=== PATIENT | female | born 1965 | race Caucasian/White ===

== ENCOUNTER → 2017-03-19 | Outpatient (CLI) | payer OTHER ==
[~2017-03-19] MED LIST: ALBU90OI INH; ALBU90OI61 INH; AMLO10 PO; ASPI81CH PO; Aspirin EC81 MG PO; Atarax10 MG PO; BASAGLAR K100 UNIT/1 SC; BENZ100A PO; BUDE6HFA INH; BUSP10 PO; BUSP15; BUSP15 PO; Bactrim Ds Tab1 EACH PO; CEPH500 PO; CHOL10002 PO; Carbidopa-Levo1 EAC1 PO; DOCU100 PO; DULERA 200 MCG/13 GM INH; FAMO20 PO; FURO40 PO; HYDCHL12.5 PO; HYDCHL25 PO; HYDHCL25 PO; HYDPAM50 PO; Humalog100 UNIT/1 SC; IBUP600 PO; INSU100I6 SC; INSULANPEN SC; Keflex500 MG PO; LEVSOD100 PO; LEVSOD75 PO; LISI20 PO; Lasix20 MG PO; METCAR500 PO; METF500 PO; METF500C PO; METO10 PO; METO25 PO; METO50 PO; METO50ER PO; Macrodantin100 MG PO; Metformin HCl500 MG PO; Nicoderm Cq1 EAC1 TOP; Novolog Fl100 UNIT/1 INJ; Novolog Fl100 UNIT/1 SC; ONDA4 PO; Omeprazole20 M1; PANT20 PO; PRAV20 PO; PROM25 PO; Percocet 10-321 EACH PO; Percocet 5-3251 EACH PO; Prilosec Otc20 MG PO; Pyridium200 MG PO; ROBITUSSIN NIG237 ML PO; Roxicodone5 MG PO; SERT50 PO; STIOLTO RESPIMAT4 GM INH; Synthroid112 MCG PO; TRAZ150T57 PO; TRAZ50 PO; Zanaflex4 MG PO; Zofran Odt4 MG SL; Zofran Odt8 MG PO
== END | disposition home or self-care (01) ==
LOC: LAB 13:48
DX: S81.801A Unspecified open wound, right lower leg, initial encounter (principal)
CPT/HCPCS: 87070; 87075; 87205

== ENCOUNTER 2017-04-19 09:56 | Emergency (ER) | payer OTHER ==
[~2017-04-19] VITALS: Ht 167.6 cm; Wt 81.7 kg
[~2017-04-19 09:56] MED LIST changes: -AMLO10 PO; -Atarax10 MG PO; -BENZ100A PO; -BUSP15; -Bactrim Ds Tab1 EACH PO; -CEPH500 PO; -CHOL10002 PO; -DULERA 200 MCG/13 GM INH; -HYDCHL12.5 PO; -HYDCHL25 PO; -HYDHCL25 PO; -IBUP600 PO; -INSU100I6 SC; -Keflex500 MG PO; -LEVSOD75 PO; -LISI20 PO; -METCAR500 PO; -METF500 PO; -METF500C PO; -METO10 PO; -METO50ER PO; -Macrodantin100 MG PO; -Metformin HCl500 MG PO; -Nicoderm Cq1 EAC1 TOP; -Novolog Fl100 UNIT/1 INJ; -Omeprazole20 M1; -Percocet 10-321 EACH PO; -Percocet 5-3251 EACH PO; -Prilosec Otc20 MG PO; -Pyridium200 MG PO; -ROBITUSSIN NIG237 ML PO; -STIOLTO RESPIMAT4 GM INH; -TRAZ150T57 PO; -TRAZ50 PO; -Zanaflex4 MG PO; -Zofran Odt4 MG SL
[2017-04-19] MEDS ORDERED: IBUP600 PO (13:04)
[2017-07-28] MEDS ORDERED: LEVSOD100 (10:45)
[2017-07-28] MEDS ORDERED: BUSP15 (10:46)
[2017-07-28] MEDS ORDERED: METO50ER PO (10:46)
[2017-07-28] MEDS ORDERED: Prilosec Otc20 MG PO (10:46)
[2017-07-28] MEDS ORDERED: SERT50 PO (10:47)
[2017-07-28] MEDS ORDERED: HYDHCL25 PO (10:47)
[2017-07-28] MEDS ORDERED: BUSP15 PO (10:47)
[2017-07-28] MEDS ORDERED: PRAV20 PO (10:47)
[2017-07-28] MEDS ORDERED: Carbidopa-Levo1 EAC1 PO (10:48)
[2017-07-28] MEDS ORDERED: METCAR500 PO (10:50)
[2017-07-28] MEDS ORDERED: TRAZ150T57 PO (10:50)
[2017-07-28] MEDS ORDERED: HYDCHL12.5 PO (10:50)
[2017-07-28] MEDS ORDERED: METF500 PO (10:51)
[2017-08-01] MEDS ORDERED: BASAGLAR K100 UNIT/1 SC (11:06)
[2017-08-01] MEDS ORDERED: Novolog Fl100 UNIT/1 INJ (11:06)
[2017-08-01] MEDS ORDERED: Carbidopa-Levo1 EAC1 PO (15:04)
[2017-08-01] MEDS ORDERED: LEVSOD100 PO (15:08)
[2017-08-01] MEDS ORDERED: LISI20 PO (15:10)
[2018-01-29] MEDS ORDERED: Percocet 10-321 EACH PO (14:11)
[2018-01-29] MEDS ORDERED: Bactrim Ds Tab1 EACH PO (14:11)
[2018-01-29] MEDS ORDERED: Keflex500 MG PO (14:11)
== END 2017-04-19 13:25 | disposition home or self-care (01) ==
LOC: ER 09:56
DX: S39.012A Strain of muscle, fascia and tendon of lower back, initial encounter (principal); S20.212A Contusion of left front wall of thorax, initial encounter; F17.200 Nicotine dependence, unspecified, uncomplicated; Z89.511 Acquired absence of right leg below knee; W01.198A Fall on same level from slipping, tripping and stumbling with subsequent striking against other object, initial encounter; Z88.8 Allergy status to other drugs, medicaments and biological substances; Z88.5 Allergy status to narcotic agent; Z79.899 Other long term (current) drug therapy; Z79.4 Long term (current) use of insulin; Z79.82 Long term (current) use of aspirin
CPT/HCPCS: 71046; 72100; 96372; 99283; J1170; J1885

== ENCOUNTER 2017-04-24 13:12 | Emergency (ER) | payer OTHER ==
[~2017-04-24] VITALS: Ht 167.6 cm; Wt 81.7 kg
[~2017-04-24 13:12] MED LIST changes: +IBUP600 PO
[2017-04-24 14:44] LABS: BASOPHILS ABSOLUTE AUTO 0.02 K/mm3 (0.00-0.23); BASOPHILS PERCENT AUTO 0 % (0-2); EOSINOPHILS ABSOLUTE AUTO 0.06 K/mm3 (0.00-0.68); EOSINOPHILS PERCENT AUTO 0 % (0-6); Hematocrit 39.6 % (33.0-51.0); Hemoglobin 13.8 g/dL (11.5-16.0); IMMATURE GRAN ABSOLUTE AUTO 0.08 K/mm3 (0.00-0.10); IMMATURE GRAN PERCENT AUTO 1 % (0-1); LYMPHOCYTES ABSOLUTE AUTO 3.46 K/mm3 (0.84-5.20); LYMPHOCYTES PERCENT AUTO 24 % (21-46); MONOCYTES PERCENT AUTO 6 % (4-13); Mean Corpuscular HGB 29.7 pg (26.0-34.0); Mean Corpuscular HGB Conc 34.8 g/dL (31.5-36.5); Mean Corpuscular Volume 85 fL (80-100); Mean Platelet Volume 11.5 fL (9.1-12.4); NEUTROPHILS ABSOLUTE AUTO 9.78 K/mm3 (1.96-9.15); NEUTROPHILS PERCENT AUTO 68 % (41-73); Platelet Count 321 K/mm3 (150-400); RDW Coefficient Variation 13.2 % (11.7-14.2); RDW Standard Deviation 41.1 fL (35.1-46.3); Red Blood Cell Count 4.65 M/mm3 (3.80-5.20)
[2017-04-24 15:01] LABS: Albumin, Blood 3.8 g/dL (3.4-5.0); Albumin/Globulin Ratio 0.9 (0.8-1.8); Bilirubin, Total 0.5 mg/dL (0.1-1.0); Calcium, Blood 9.1 mg/dL (8.5-10.1); Creatinine, Blood 1.6 mg/dL (0.40-1.00); Globulin, Blood 4.3 g/dL (2.2-4.0); Potassium, Blood 4.7 mmol/L (3.5-5.5); Total Protein, Blood 8.1 g/dL (6.4-8.2)
[2017-04-24 19:20] LABS: Source, Urine Clean Catch
[2017-04-24 19:28] LABS: Bilirubin, Urine Neg (Neg); Blood, Urine 3+ (Neg); Glucose Qualitative, Urine 3+ (Neg); Ketones, Urine Neg (Neg); Leukocyte Esterase, Urine 3+ (Neg); Nitrite, Urine Neg (Neg); Protein, Urine 3+ (Neg); Specific Gravity, Urine 1.015 (1.003-1.022); Urobilinogen, Urine 1+ (Normal)
[2017-04-24 19:32] LABS: Appearance, Urine Clear (Clear); Color, Urine Yellow (P-Yellow)
[2017-04-24 19:33] LABS: Bacteria Many /hpf; Squamous Epithelial Cells Mod /hpf (Few)
[2017-07-28] MEDS ORDERED: LEVSOD100 (10:45)
[2017-07-28] MEDS ORDERED: BUSP15 (10:46)
[2017-07-28] MEDS ORDERED: METO50ER PO (10:46)
[2017-07-28] MEDS ORDERED: Prilosec Otc20 MG PO (10:46)
[2017-07-28] MEDS ORDERED: SERT50 PO (10:47)
[2017-07-28] MEDS ORDERED: BUSP15 PO (10:47)
[2017-07-28] MEDS ORDERED: HYDHCL25 PO (10:47)
[2017-07-28] MEDS ORDERED: PRAV20 PO (10:47)
[2017-07-28] MEDS ORDERED: Carbidopa-Levo1 EAC1 PO (10:48)
[2017-07-28] MEDS ORDERED: TRAZ150T57 PO (10:50)
[2017-07-28] MEDS ORDERED: HYDCHL12.5 PO (10:50)
[2017-07-28] MEDS ORDERED: METCAR500 PO (10:50)
[2017-07-28] MEDS ORDERED: METF500 PO (10:51)
[2017-08-01] MEDS ORDERED: BASAGLAR K100 UNIT/1 SC (11:06)
[2017-08-01] MEDS ORDERED: Novolog Fl100 UNIT/1 INJ (11:06)
[2017-08-01] MEDS ORDERED: Carbidopa-Levo1 EAC1 PO (15:04)
[2017-08-01] MEDS ORDERED: LEVSOD100 PO (15:08)
[2017-08-01] MEDS ORDERED: LISI20 PO (15:10)
[2018-01-29] MEDS ORDERED: Keflex500 MG PO (14:11)
[2018-01-29] MEDS ORDERED: Bactrim Ds Tab1 EACH PO (14:11)
[2018-01-29] MEDS ORDERED: Percocet 10-321 EACH PO (14:11)
== END 2017-04-24 22:44 | disposition home or self-care (01) ==
LOC: ER 13:12
PROVIDERS: Emergency Medicine
DX: R10.9 Unspecified abdominal pain (principal); S22.079A Unspecified fracture of T9-T10 vertebra, initial encounter for closed fracture; S22.089A Unspecified fracture of T11-T12 vertebra, initial encounter for closed fracture; E16.2 Hypoglycemia, unspecified; F17.200 Nicotine dependence, unspecified, uncomplicated; Z88.6 Allergy status to analgesic agent; Z88.5 Allergy status to narcotic agent; Z79.4 Long term (current) use of insulin; Z79.899 Other long term (current) drug therapy; Z79.82 Long term (current) use of aspirin; Z89.511 Acquired absence of right leg below knee; X58.XXXA Exposure to other specified factors, initial encounter
CPT/HCPCS: 36415; 74176; 80053; 81001; 83690; 85025; 87077; 87086; 87186; 96372; 96374; 99284; J1170

== ENCOUNTER 2017-04-30 06:10 | Emergency (ER) | payer OTHER ==
[~2017-04-30] VITALS: Ht 162.6 cm; Wt 79.4 kg
[2017-04-30 08:10] LABS: BASOPHILS ABSOLUTE AUTO 0.03 K/mm3 (0.00-0.23); BASOPHILS PERCENT AUTO 0 % (0-2); EOSINOPHILS ABSOLUTE AUTO 0.02 K/mm3 (0.00-0.68); EOSINOPHILS PERCENT AUTO 0 % (0-6); Hematocrit 37.8 % (33.0-51.0); Hemoglobin 12.9 g/dL (11.5-16.0); IMMATURE GRAN ABSOLUTE AUTO 0.04 K/mm3 (0.00-0.10); IMMATURE GRAN PERCENT AUTO 0 % (0-1); LYMPHOCYTES ABSOLUTE AUTO 1.85 K/mm3 (0.84-5.20); LYMPHOCYTES PERCENT AUTO 17 % (21-46); MONOCYTES ABSOLUTE AUTO 0.53 K/mm3 (0.16-1.47); MONOCYTES PERCENT AUTO 5 % (4-13); Mean Corpuscular HGB 29.6 pg (26.0-34.0); Mean Corpuscular HGB Conc 34.1 g/dL (31.5-36.5); Mean Corpuscular Volume 87 fL (80-100); Mean Platelet Volume 11.3 fL (9.1-12.4); NEUTROPHILS ABSOLUTE AUTO 8.29 K/mm3 (1.96-9.15); NEUTROPHILS PERCENT AUTO 77 % (41-73); Platelet Count 265 K/mm3 (150-400); RDW Coefficient Variation 13.3 % (11.7-14.2); RDW Standard Deviation 42.2 fL (35.1-46.3); Red Blood Cell Count 4.36 M/mm3 (3.80-5.20); White Blood Cell Count 10.76 K/mm3 (4.00-11.30)
[2017-04-30 08:33] LABS: Alanine Aminotransfer (ALT/SGP 14 U/L (12-78); Albumin, Blood 3.5 g/dL (3.4-5.0); Albumin/Globulin Ratio 0.9 (0.8-1.8); Alk Phos 124 U/L (50-136); Anion Gap 9 mmol/L (6-16); Aspartate Aminotrans (AST/SGOT 12 U/L (12-37); Bilirubin, Total 0.5 mg/dL (0.1-1.0); Blood Urea Nitrogen 25 mg/dL (8-24); Bun/Creatinine Ratio 20.7 (12.0-20.0); CO2, Blood 25 mmol/L (21-32); Calcium, Blood 8.8 mg/dL (8.5-10.1); Chloride, Blood 97 mmol/L (98-108); Creatinine, Blood 1.21 mg/dL (0.40-1.00); Globulin, Blood 4.1 g/dL (2.2-4.0); Glomerular Filtration Rate 49 (60-); Glucose, Blood 363 mg/dL (70-99); Potassium, Blood 4.9 mmol/L (3.5-5.5); Sodium, Blood 131 mmol/L (136-145); Total Protein, Blood 7.6 g/dL (6.4-8.2); Troponin I <0.015 ng/mL (0.000-0.040)
[2017-04-30 09:01] LABS: Source, Urine Clean Catch
[2017-04-30 09:06] LABS: Bilirubin, Urine Neg (Neg); Blood, Urine 2+ (Neg); Glucose Qualitative, Urine 4+ (Neg); Ketones, Urine 1+ (Neg); Leukocyte Esterase, Urine Neg (Neg); Nitrite, Urine Neg (Neg); Protein, Urine 3+ (Neg); Urobilinogen, Urine NORM (Normal)
[2017-04-30 09:17] LABS: Appearance, Urine Clear (Clear); Color, Urine Yellow (P-Yellow)
[2017-04-30 09:20] LABS: Bacteria Not Seen /hpf; Squamous Epithelial Cells Few /hpf (Few); White Blood Cells, Urine Not Seen /hpf (0-5)
[2017-04-30] MEDS ORDERED: Zofran Odt4 MG SL (09:47)
[2017-04-30] MEDS ORDERED: Percocet 5-3251 EACH PO (09:47)
[2017-07-28] MEDS ORDERED: LEVSOD100 (10:45)
[2017-07-28] MEDS ORDERED: BUSP15 (10:46)
[2017-07-28] MEDS ORDERED: METO50ER PO (10:46)
[2017-07-28] MEDS ORDERED: Prilosec Otc20 MG PO (10:46)
[2017-07-28] MEDS ORDERED: PRAV20 PO (10:47)
[2017-07-28] MEDS ORDERED: HYDHCL25 PO (10:47)
[2017-07-28] MEDS ORDERED: SERT50 PO (10:47)
[2017-07-28] MEDS ORDERED: BUSP15 PO (10:47)
[2017-07-28] MEDS ORDERED: Carbidopa-Levo1 EAC1 PO (10:48)
[2017-07-28] MEDS ORDERED: HYDCHL12.5 PO (10:50)
[2017-07-28] MEDS ORDERED: METCAR500 PO (10:50)
[2017-07-28] MEDS ORDERED: TRAZ150T57 PO (10:50)
[2017-07-28] MEDS ORDERED: METF500 PO (10:51)
[2017-08-01] MEDS ORDERED: BASAGLAR K100 UNIT/1 SC (11:06)
[2017-08-01] MEDS ORDERED: Novolog Fl100 UNIT/1 INJ (11:06)
[2017-08-01] MEDS ORDERED: Carbidopa-Levo1 EAC1 PO (15:04)
[2017-08-01] MEDS ORDERED: LEVSOD100 PO (15:08)
[2017-08-01] MEDS ORDERED: LISI20 PO (15:10)
[2018-01-29] MEDS ORDERED: Bactrim Ds Tab1 EACH PO (14:11)
[2018-01-29] MEDS ORDERED: Percocet 10-321 EACH PO (14:11)
[2018-01-29] MEDS ORDERED: Keflex500 MG PO (14:11)
== END 2017-04-30 10:00 | disposition home or self-care (01) ==
LOC: ER 06:10
PROVIDERS: Physician Assistant
DX: R11.2 Nausea with vomiting, unspecified (principal); E11.65 Type 2 diabetes mellitus with hyperglycemia; E11.22 Type 2 diabetes mellitus with diabetic chronic kidney disease; I12.9 Hypertensive chronic kidney disease with stage 1 through stage 4 chronic kidney disease, or unspecified chronic kidney disease; N18.9 Chronic kidney disease, unspecified; F17.200 Nicotine dependence, unspecified, uncomplicated; Z88.5 Allergy status to narcotic agent; Z79.4 Long term (current) use of insulin; Z79.899 Other long term (current) drug therapy; Z79.82 Long term (current) use of aspirin
CPT/HCPCS: 36415; 80053; 81001; 83690; 84484; 85025; 93005; 93010; 96361; 96374; 96375; 99284; J1170; J2765; J7030

== ENCOUNTER 2017-05-19 10:12 | Emergency (ER) | payer OTHER ==
[~2017-05-19] VITALS: Ht 167.6 cm; Wt 86.6 kg
[~2017-05-19 10:12] MED LIST changes: +Percocet 5-3251 EACH PO; +Zofran Odt4 MG SL
[2017-05-19] MEDS ORDERED: Percocet 10-321 EACH PO (10:37)
[2017-07-28] MEDS ORDERED: LEVSOD100 (10:45)
[2017-07-28] MEDS ORDERED: METO50ER PO (10:46)
[2017-07-28] MEDS ORDERED: Prilosec Otc20 MG PO (10:46)
[2017-07-28] MEDS ORDERED: BUSP15 (10:46)
[2017-07-28] MEDS ORDERED: PRAV20 PO (10:47)
[2017-07-28] MEDS ORDERED: HYDHCL25 PO (10:47)
[2017-07-28] MEDS ORDERED: BUSP15 PO (10:47)
[2017-07-28] MEDS ORDERED: SERT50 PO (10:47)
[2017-07-28] MEDS ORDERED: Carbidopa-Levo1 EAC1 PO (10:48)
[2017-07-28] MEDS ORDERED: HYDCHL12.5 PO (10:50)
[2017-07-28] MEDS ORDERED: METCAR500 PO (10:50)
[2017-07-28] MEDS ORDERED: TRAZ150T57 PO (10:50)
[2017-07-28] MEDS ORDERED: METF500 PO (10:51)
[2017-08-01] MEDS ORDERED: Novolog Fl100 UNIT/1 INJ (11:06)
[2017-08-01] MEDS ORDERED: BASAGLAR K100 UNIT/1 SC (11:06)
[2017-08-01] MEDS ORDERED: Carbidopa-Levo1 EAC1 PO (15:04)
[2017-08-01] MEDS ORDERED: LEVSOD100 PO (15:08)
[2017-08-01] MEDS ORDERED: LISI20 PO (15:10)
[2018-01-29] MEDS ORDERED: Bactrim Ds Tab1 EACH PO (14:11)
[2018-01-29] MEDS ORDERED: Keflex500 MG PO (14:11)
[2018-01-29] MEDS ORDERED: Percocet 10-321 EACH PO (14:11)
== END 2017-05-19 10:50 | disposition home or self-care (01) ==
LOC: ER 10:12
DX: S22.079D Unspecified fracture of T9-T10 vertebra, subsequent encounter for fracture with routine healing (principal); X58.XXXD Exposure to other specified factors, subsequent encounter; Z88.5 Allergy status to narcotic agent; Z88.8 Allergy status to other drugs, medicaments and biological substances; Z79.899 Other long term (current) drug therapy; Z79.4 Long term (current) use of insulin; Z79.82 Long term (current) use of aspirin; E11.22 Type 2 diabetes mellitus with diabetic chronic kidney disease; I12.9 Hypertensive chronic kidney disease with stage 1 through stage 4 chronic kidney disease, or unspecified chronic kidney disease; N18.9 Chronic kidney disease, unspecified; F17.200 Nicotine dependence, unspecified, uncomplicated
CPT/HCPCS: 99283

== ENCOUNTER 2017-05-26 11:02 | Emergency (ER) | payer OTHER ==
[~2017-05-26] VITALS: Ht 167.6 cm; Wt 81.7 kg
[~2017-05-26 11:02] MED LIST changes: +Percocet 10-321 EACH PO
[2017-05-26 12:25] LABS: Source, Urine Clean Catch
[2017-05-26 12:32] LABS: Bilirubin, Urine Neg (Neg); Blood, Urine 3+ (Neg); Glucose Qualitative, Urine 4+ (Neg); Ketones, Urine Neg (Neg); Leukocyte Esterase, Urine 1+ (Neg); Nitrite, Urine Neg (Neg); Protein, Urine 3+ (Neg); Urobilinogen, Urine NORM (Normal)
[2017-05-26 12:51] LABS: Appearance, Urine Clear (Clear); Color, Urine Yellow (P-Yellow)
[2017-05-26 12:53] LABS: Bacteria Few /hpf; Squamous Epithelial Cells Many /hpf (Few)
[2017-05-26 13:00] LABS: BASOPHILS ABSOLUTE AUTO 0.04 K/mm3 (0.00-0.23); BASOPHILS PERCENT AUTO 0 % (0-2); EOSINOPHILS ABSOLUTE AUTO 0.06 K/mm3 (0.00-0.68); EOSINOPHILS PERCENT AUTO 1 % (0-6); Hematocrit 40.9 % (33.0-51.0); Hemoglobin 13.6 g/dL (11.5-16.0); IMMATURE GRAN ABSOLUTE AUTO 0.06 K/mm3 (0.00-0.10); IMMATURE GRAN PERCENT AUTO 1 % (0-1); LYMPHOCYTES ABSOLUTE AUTO 2.34 K/mm3 (0.84-5.20); LYMPHOCYTES PERCENT AUTO 23 % (21-46); MONOCYTES ABSOLUTE AUTO 0.49 K/mm3 (0.16-1.47); MONOCYTES PERCENT AUTO 5 % (4-13); Mean Corpuscular HGB 28.6 pg (26.0-34.0); Mean Corpuscular HGB Conc 33.3 g/dL (31.5-36.5); Mean Corpuscular Volume 86 fL (80-100); Mean Platelet Volume 10.7 fL (9.1-12.4); NEUTROPHILS ABSOLUTE AUTO 7.16 K/mm3 (1.96-9.15); NEUTROPHILS PERCENT AUTO 71 % (41-73); Platelet Count 252 K/mm3 (150-400); RDW Coefficient Variation 12.8 % (11.7-14.2); RDW Standard Deviation 40.2 fL (35.1-46.3); Red Blood Cell Count 4.75 M/mm3 (3.80-5.20); White Blood Cell Count 10.15 K/mm3 (4.00-11.30)
[2017-05-26] MEDS ORDERED: METF500 PO (13:30)
[2017-05-26] MEDS ORDERED: Omeprazole20 M1 (13:30)
[2017-05-26] MEDS ORDERED: HYDHCL25 PO (13:31)
[2017-05-26] MEDS ORDERED: PRAV20 PO (13:31)
[2017-05-26] MEDS ORDERED: METCAR500 PO (13:32)
[2017-05-26 13:43] LABS: Albumin, Blood 3.6 g/dL (3.4-5.0); Albumin/Globulin Ratio 0.9 (0.8-1.8); Bilirubin, Total 0.5 mg/dL (0.1-1.0); Bun/Creatinine Ratio 16.8 (12.0-20.0); Calcium, Blood 9.1 mg/dL (8.5-10.1); Creatinine, Blood 1.31 mg/dL (0.40-1.00); Globulin, Blood 4.1 g/dL (2.2-4.0); Potassium, Blood 4.9 mmol/L (3.5-5.5); Total Protein, Blood 7.7 g/dL (6.4-8.2)
[2017-05-26] MEDS ORDERED: Macrodantin100 MG PO (14:38)
[2017-05-26] MEDS ORDERED: METO10 PO (14:52)
[2017-05-27] MEDS ORDERED: BASAGLAR K100 UNIT/1 SC (11:28)
[2017-05-27] MEDS ORDERED: Atarax10 MG PO (16:34)
[2017-05-27] MEDS ORDERED: BUSP15 PO (16:36)
[2017-05-27] MEDS ORDERED: LEVSOD100 PO (16:41)
[2017-05-27] MEDS ORDERED: TRAZ50 PO (16:43)
[2017-05-27] MEDS ORDERED: METO10 PO (16:45)
[2017-05-27] MEDS ORDERED: CHOL10002 PO (16:47)
[2017-05-27] MEDS ORDERED: STIOLTO RESPIMAT4 GM INH (16:54)
[2017-05-27] MEDS ORDERED: INSU100I6 SC (17:00)
[2017-07-28] MEDS ORDERED: LEVSOD100 (10:45)
[2017-07-28] MEDS ORDERED: METO50ER PO (10:46)
[2017-07-28] MEDS ORDERED: Prilosec Otc20 MG PO (10:46)
[2017-07-28] MEDS ORDERED: BUSP15 (10:46)
[2017-07-28] MEDS ORDERED: HYDHCL25 PO (10:47)
[2017-07-28] MEDS ORDERED: SERT50 PO (10:47)
[2017-07-28] MEDS ORDERED: BUSP15 PO (10:47)
[2017-07-28] MEDS ORDERED: PRAV20 PO (10:47)
[2017-07-28] MEDS ORDERED: Carbidopa-Levo1 EAC1 PO (10:48)
[2017-07-28] MEDS ORDERED: HYDCHL12.5 PO (10:50)
[2017-07-28] MEDS ORDERED: METCAR500 PO (10:50)
[2017-07-28] MEDS ORDERED: TRAZ150T57 PO (10:50)
[2017-07-28] MEDS ORDERED: METF500 PO (10:51)
[2017-08-01] MEDS ORDERED: Novolog Fl100 UNIT/1 INJ (11:06)
[2017-08-01] MEDS ORDERED: BASAGLAR K100 UNIT/1 SC (11:06)
[2017-08-01] MEDS ORDERED: Carbidopa-Levo1 EAC1 PO (15:04)
[2017-08-01] MEDS ORDERED: LEVSOD100 PO (15:08)
[2017-08-01] MEDS ORDERED: LISI20 PO (15:10)
[2018-01-29] MEDS ORDERED: Bactrim Ds Tab1 EACH PO (14:11)
[2018-01-29] MEDS ORDERED: Percocet 10-321 EACH PO (14:11)
[2018-01-29] MEDS ORDERED: Keflex500 MG PO (14:11)
== END 2017-05-26 15:18 | disposition home or self-care (01) ==
LOC: ER 11:02
PROVIDERS: Emergency Medicine
DX: N39.0 Urinary tract infection, site not specified (principal); E11.65 Type 2 diabetes mellitus with hyperglycemia; N28.9 Disorder of kidney and ureter, unspecified; R11.2 Nausea with vomiting, unspecified; R10.9 Unspecified abdominal pain; Z88.5 Allergy status to narcotic agent; Z88.8 Allergy status to other drugs, medicaments and biological substances; Z79.899 Other long term (current) drug therapy; Z79.4 Long term (current) use of insulin; Z79.82 Long term (current) use of aspirin; I12.9 Hypertensive chronic kidney disease with stage 1 through stage 4 chronic kidney disease, or unspecified chronic kidney disease; E11.22 Type 2 diabetes mellitus with diabetic chronic kidney disease; N18.9 Chronic kidney disease, unspecified; F17.200 Nicotine dependence, unspecified, uncomplicated
CPT/HCPCS: 36415; 74176; 80053; 81001; 85025; 96361; 96374; 96375; 96376; 99284; J1170; J1885; J2765; J7030

== ENCOUNTER 2017-05-27 10:50 | Observation (INO) | payer OTHER ==
[~2017-05-27] VITALS: Ht 167.6 cm; Wt 81.7 kg
[~2017-05-27 10:50] MED LIST changes: +HYDHCL25 PO; +METCAR500 PO; +METF500 PO; +METO10 PO; +Macrodantin100 MG PO; +Omeprazole20 M1
[2017-05-27] MEDS ORDERED: BASAGLAR K100 UNIT/1 SC (11:28)
[2017-05-27 11:56] LABS: BASOPHILS ABSOLUTE AUTO 0.04 K/mm3 (0.00-0.23); BASOPHILS PERCENT AUTO 0 % (0-2); EOSINOPHILS ABSOLUTE AUTO 0.07 K/mm3 (0.00-0.68); EOSINOPHILS PERCENT AUTO 1 % (0-6); IMMATURE GRAN ABSOLUTE AUTO 0.06 K/mm3 (0.00-0.10); IMMATURE GRAN PERCENT AUTO 1 % (0-1); LYMPHOCYTES PERCENT AUTO 20 % (21-46); MONOCYTES ABSOLUTE AUTO 0.58 K/mm3 (0.16-1.47); MONOCYTES PERCENT AUTO 5 % (4-13); Mean Corpuscular HGB 28.1 pg (26.0-34.0); Mean Corpuscular HGB Conc 33.3 g/dL (31.5-36.5); Mean Corpuscular Volume 84 fL (80-100); Mean Platelet Volume 10.8 fL (9.1-12.4); NEUTROPHILS ABSOLUTE AUTO 8.49 K/mm3 (1.96-9.15); NEUTROPHILS PERCENT AUTO 74 % (41-73); Platelet Count 267 K/mm3 (150-400); RDW Coefficient Variation 12.7 % (11.7-14.2); RDW Standard Deviation 39.1 fL (35.1-46.3); Red Blood Cell Count 4.62 M/mm3 (3.80-5.20); White Blood Cell Count 11.54 K/mm3 (4.00-11.30)
[2017-05-27 12:13] LABS: Albumin, Blood 3.8 g/dL (3.4-5.0); Bilirubin, Total 0.5 mg/dL (0.1-1.0); Bun/Creatinine Ratio 23.1 (12.0-20.0); Calcium, Blood 8.7 mg/dL (8.5-10.1); Creatinine, Blood 1.3 mg/dL (0.40-1.00); Potassium, Blood 4.8 mmol/L (3.5-5.5); Total Protein, Blood 7.8 g/dL (6.4-8.2)
[2017-05-27] MEDS ORDERED: Atarax10 MG PO (16:34)
[2017-05-27] MEDS ORDERED: BUSP15 PO (16:36)
[2017-05-27] MEDS ORDERED: LEVSOD100 PO (16:41)
[2017-05-27] MEDS ORDERED: TRAZ50 PO (16:43)
[2017-05-27] MEDS ORDERED: METO10 PO (16:45)
[2017-05-27] MEDS ORDERED: CHOL10002 PO (16:47)
[2017-05-27] MEDS ORDERED: STIOLTO RESPIMAT4 GM INH (16:54)
[2017-05-27] MEDS ORDERED: INSU100I6 SC (17:00)
[2017-05-28 05:09] LABS: BASOPHILS ABSOLUTE AUTO 0.04 K/mm3 (0.00-0.23); BASOPHILS PERCENT AUTO 1 % (0-2); EOSINOPHILS ABSOLUTE AUTO 0.09 K/mm3 (0.00-0.68); EOSINOPHILS PERCENT AUTO 1 % (0-6); Hematocrit 33.4 % (33.0-51.0); Hemoglobin 11.1 g/dL (11.5-16.0); IMMATURE GRAN ABSOLUTE AUTO 0.04 K/mm3 (0.00-0.10); IMMATURE GRAN PERCENT AUTO 1 % (0-1); LYMPHOCYTES ABSOLUTE AUTO 2.42 K/mm3 (0.84-5.20); LYMPHOCYTES PERCENT AUTO 34 % (21-46); MONOCYTES ABSOLUTE AUTO 0.62 K/mm3 (0.16-1.47); MONOCYTES PERCENT AUTO 9 % (4-13); Mean Corpuscular HGB 28.3 pg (26.0-34.0); Mean Corpuscular HGB Conc 33.2 g/dL (31.5-36.5); Mean Corpuscular Volume 85 fL (80-100); Mean Platelet Volume 10.8 fL (9.1-12.4); NEUTROPHILS ABSOLUTE AUTO 3.92 K/mm3 (1.96-9.15); NEUTROPHILS PERCENT AUTO 55 % (41-73); Platelet Count 186 K/mm3 (150-400); RDW Coefficient Variation 12.8 % (11.7-14.2); RDW Standard Deviation 39.6 fL (35.1-46.3); Red Blood Cell Count 3.92 M/mm3 (3.80-5.20); White Blood Cell Count 7.13 K/mm3 (4.00-11.30)
[2017-05-28 05:18] LABS: Bun/Creatinine Ratio 17.8 (12.0-20.0); Calcium, Blood 7.9 mg/dL (8.5-10.1); Creatinine, Blood 1.18 mg/dL (0.40-1.00); Potassium, Blood 4.6 mmol/L (3.5-5.5)
[2017-05-28] MEDS ORDERED: HYDCHL25 PO (10:29)
[2017-05-28] MEDS ORDERED: LISI20 PO (10:31)
[2017-05-28] MEDS ORDERED: METO50ER PO (10:34)
[2017-05-28] MEDS ORDERED: ONDA4 PO (10:38)
[2017-05-28] MEDS ORDERED: DULERA 200 MCG/13 GM INH (11:00)
[2017-05-28] MEDS ORDERED: Percocet 10-321 EACH PO (11:01)
[2017-07-28] MEDS ORDERED: LEVSOD100 (10:45)
[2017-07-28] MEDS ORDERED: Prilosec Otc20 MG PO (10:46)
[2017-07-28] MEDS ORDERED: METO50ER PO (10:46)
[2017-07-28] MEDS ORDERED: BUSP15 (10:46)
[2017-07-28] MEDS ORDERED: PRAV20 PO (10:47)
[2017-07-28] MEDS ORDERED: BUSP15 PO (10:47)
[2017-07-28] MEDS ORDERED: HYDHCL25 PO (10:47)
[2017-07-28] MEDS ORDERED: SERT50 PO (10:47)
[2017-07-28] MEDS ORDERED: Carbidopa-Levo1 EAC1 PO (10:48)
[2017-07-28] MEDS ORDERED: HYDCHL12.5 PO (10:50)
[2017-07-28] MEDS ORDERED: METCAR500 PO (10:50)
[2017-07-28] MEDS ORDERED: TRAZ150T57 PO (10:50)
[2017-07-28] MEDS ORDERED: METF500 PO (10:51)
[2017-08-01] MEDS ORDERED: Novolog Fl100 UNIT/1 INJ (11:06)
[2017-08-01] MEDS ORDERED: BASAGLAR K100 UNIT/1 SC (11:06)
[2017-08-01] MEDS ORDERED: Carbidopa-Levo1 EAC1 PO (15:04)
[2017-08-01] MEDS ORDERED: LEVSOD100 PO (15:08)
[2017-08-01] MEDS ORDERED: LISI20 PO (15:10)
[2018-01-29] MEDS ORDERED: Percocet 10-321 EACH PO (14:11)
[2018-01-29] MEDS ORDERED: Keflex500 MG PO (14:11)
[2018-01-29] MEDS ORDERED: Bactrim Ds Tab1 EACH PO (14:11)
== END 2017-05-28 12:24 | disposition home or self-care (01) ==
LOC: ER 10:50 → MEDS 10:51
PROVIDERS: Emergency Medicine; Internal Medicine
DX: R11.2 Nausea with vomiting, unspecified (principal); I16.0 Hypertensive urgency; E87.1 Hypo-osmolality and hyponatremia; E86.9 Volume depletion, unspecified; I12.9 Hypertensive chronic kidney disease with stage 1 through stage 4 chronic kidney disease, or unspecified chronic kidney disease; E11.22 Type 2 diabetes mellitus with diabetic chronic kidney disease; N18.3 Chronic kidney disease, stage 3 (moderate); J44.9 Chronic obstructive pulmonary disease, unspecified; M48.54XA Collapsed vertebra, not elsewhere classified, thoracic region, initial encounter for fracture; E78.5 Hyperlipidemia, unspecified; G89.29 Other chronic pain; R10.9 Unspecified abdominal pain; F17.210 Nicotine dependence, cigarettes, uncomplicated; Z87.11 Personal history of peptic ulcer disease; Z89.511 Acquired absence of right leg below knee; Z88.5 Allergy status to narcotic agent; Z98.890 Other specified postprocedural states; Z79.82 Long term (current) use of aspirin; Z79.4 Long term (current) use of insulin; Z79.899 Other long term (current) drug therapy
CPT/HCPCS: 36415; 80048; 80053; 82947; 83690; 85025; 94640; 94760; 96361; 96372; 96374; 96375; 96376; 99285; C9113; G0378; J0696; J1170; J1650; J1815; J2405; J2765; J3010; J7030

== ENCOUNTER 2017-06-16 12:07 | Emergency (ER) | payer OTHER ==
[~2017-06-16] VITALS: Ht 167.6 cm; Wt 81.7 kg
[~2017-06-16 12:07] MED LIST changes: +Atarax10 MG PO; +CHOL10002 PO; +DULERA 200 MCG/13 GM INH; +HYDCHL25 PO; +INSU100I6 SC; +LISI20 PO; +METO50ER PO; +STIOLTO RESPIMAT4 GM INH; +TRAZ50 PO
[2017-06-16 13:40] LABS: BASOPHILS ABSOLUTE AUTO 0.04 K/mm3 (0.00-0.23); BASOPHILS PERCENT AUTO 1 % (0-2); EOSINOPHILS ABSOLUTE AUTO 0.17 K/mm3 (0.00-0.68); EOSINOPHILS PERCENT AUTO 2 % (0-6); Hematocrit 38.8 % (33.0-51.0); Hemoglobin 12.8 g/dL (11.5-16.0); IMMATURE GRAN ABSOLUTE AUTO 0.05 K/mm3 (0.00-0.10); IMMATURE GRAN PERCENT AUTO 1 % (0-1); LYMPHOCYTES ABSOLUTE AUTO 2.87 K/mm3 (0.84-5.20); LYMPHOCYTES PERCENT AUTO 33 % (21-46); MONOCYTES ABSOLUTE AUTO 0.53 K/mm3 (0.16-1.47); MONOCYTES PERCENT AUTO 6 % (4-13); Mean Corpuscular HGB 28.2 pg (26.0-34.0); Mean Corpuscular Volume 86 fL (80-100); NEUTROPHILS ABSOLUTE AUTO 5.09 K/mm3 (1.96-9.15); NEUTROPHILS PERCENT AUTO 58 % (41-73); Platelet Count 211 K/mm3 (150-400); RDW Coefficient Variation 12.9 % (11.7-14.2); RDW Standard Deviation 39.7 fL (35.1-46.3); Red Blood Cell Count 4.54 M/mm3 (3.80-5.20); White Blood Cell Count 8.75 K/mm3 (4.00-11.30)
[2017-06-16 14:01] LABS: Albumin, Blood 3.7 g/dL (3.4-5.0); Albumin/Globulin Ratio 0.9 (0.8-1.8); Bilirubin, Total 0.4 mg/dL (0.1-1.0); Bun/Creatinine Ratio 26.5 (12.0-20.0); Calcium, Blood 9.3 mg/dL (8.5-10.1); Creatinine, Blood 1.17 mg/dL (0.40-1.00); Globulin, Blood 4.2 g/dL (2.2-4.0); Total Protein, Blood 7.9 g/dL (6.4-8.2)
[2017-06-16 14:03] LABS: Source, Urine Clean Catch
[2017-06-16 14:08] LABS: Bilirubin, Urine Neg (Neg); Blood, Urine 2+ (Neg); Glucose Qualitative, Urine Neg (Neg); Ketones, Urine 1+ (Neg); Leukocyte Esterase, Urine 3+ (Neg); Nitrite, Urine Neg (Neg); Protein, Urine 3+ (Neg); Urobilinogen, Urine NORM (Normal)
[2017-06-16 14:14] LABS: Appearance, Urine Clear (Clear); Color, Urine Yellow (P-Yellow)
[2017-06-16 14:18] LABS: Bacteria Few /hpf; Squamous Epithelial Cells Few /hpf (Few)
[2017-06-16] MEDS ORDERED: Pyridium200 MG PO (15:24)
[2017-06-16] MEDS ORDERED: CEPH500 PO (15:24)
[2017-07-28] MEDS ORDERED: LEVSOD100 (10:45)
[2017-07-28] MEDS ORDERED: BUSP15 (10:46)
[2017-07-28] MEDS ORDERED: METO50ER PO (10:46)
[2017-07-28] MEDS ORDERED: Prilosec Otc20 MG PO (10:46)
[2017-07-28] MEDS ORDERED: PRAV20 PO (10:47)
[2017-07-28] MEDS ORDERED: SERT50 PO (10:47)
[2017-07-28] MEDS ORDERED: HYDHCL25 PO (10:47)
[2017-07-28] MEDS ORDERED: BUSP15 PO (10:47)
[2017-07-28] MEDS ORDERED: Carbidopa-Levo1 EAC1 PO (10:48)
[2017-07-28] MEDS ORDERED: HYDCHL12.5 PO (10:50)
[2017-07-28] MEDS ORDERED: METCAR500 PO (10:50)
[2017-07-28] MEDS ORDERED: TRAZ150T57 PO (10:50)
[2017-07-28] MEDS ORDERED: METF500 PO (10:51)
[2017-08-01] MEDS ORDERED: BASAGLAR K100 UNIT/1 SC (11:06)
[2017-08-01] MEDS ORDERED: Novolog Fl100 UNIT/1 INJ (11:06)
[2017-08-01] MEDS ORDERED: Carbidopa-Levo1 EAC1 PO (15:04)
[2017-08-01] MEDS ORDERED: LEVSOD100 PO (15:08)
[2017-08-01] MEDS ORDERED: LISI20 PO (15:10)
[2018-01-29] MEDS ORDERED: Percocet 10-321 EACH PO (14:11)
[2018-01-29] MEDS ORDERED: Bactrim Ds Tab1 EACH PO (14:11)
[2018-01-29] MEDS ORDERED: Keflex500 MG PO (14:11)
== END 2017-06-16 15:36 | disposition home or self-care (01) ==
LOC: ER 12:07
PROVIDERS: Emergency Medicine
DX: N12 Tubulo-interstitial nephritis, not specified as acute or chronic (principal); E11.9 Type 2 diabetes mellitus without complications; I10 Essential (primary) hypertension; F17.210 Nicotine dependence, cigarettes, uncomplicated; Z88.5 Allergy status to narcotic agent; Z79.899 Other long term (current) drug therapy; Z79.84 Long term (current) use of oral hypoglycemic drugs; Z79.4 Long term (current) use of insulin; Z79.891 Long term (current) use of opiate analgesic
CPT/HCPCS: 36415; 80053; 81001; 81025; 83690; 85025; 87086; 96374; 96375; 99283; J0696; J1885; J2405

== ENCOUNTER 2017-07-28 10:23 | Emergency (ER) | payer OTHER ==
[~2017-07-28] VITALS: Ht 167.6 cm; Wt 77.1 kg
[~2017-07-28 10:23] MED LIST changes: +CEPH500 PO; +Pyridium200 MG PO
[2017-07-28] MEDS ORDERED: Synthroid112 MCG (10:45)
[2017-07-28] MEDS ORDERED: METO50ER (10:46)
[2017-07-28] MEDS ORDERED: Prilosec Otc20 MG (10:46)
[2017-07-28] MEDS ORDERED: BUSP15 ×2 (10:46→10:47)
[2017-07-28] MEDS ORDERED: SERT50 (10:47)
[2017-07-28] MEDS ORDERED: PRAV20 (10:47)
[2017-07-28] MEDS ORDERED: HYDHCL25 (10:47)
[2017-07-28] MEDS ORDERED: CARBI50 (10:48)
[2017-07-28] MEDS ORDERED: METCAR500 (10:50)
[2017-07-28] MEDS ORDERED: TRAZ150T57 (10:50)
[2017-07-28] MEDS ORDERED: HYDCHL12.5 (10:50)
[2017-07-28] MEDS ORDERED: METF500C (10:51)
[2017-07-28 11:30] LABS: BASOPHILS ABSOLUTE AUTO 0.03 K/mm3 (0.00-0.23); BASOPHILS PERCENT AUTO 1 % (0-2); EOSINOPHILS ABSOLUTE AUTO 0.09 K/mm3 (0.00-0.68); EOSINOPHILS PERCENT AUTO 2 % (0-6); Hemoglobin 11.7 g/dL (11.5-16.0); IMMATURE GRAN ABSOLUTE AUTO 0.02 K/mm3 (0.00-0.10); IMMATURE GRAN PERCENT AUTO 0 % (0-1); LYMPHOCYTES ABSOLUTE AUTO 1.52 K/mm3 (0.84-5.20); LYMPHOCYTES PERCENT AUTO 29 % (21-46); MONOCYTES ABSOLUTE AUTO 0.42 K/mm3 (0.16-1.47); MONOCYTES PERCENT AUTO 8 % (4-13); Mean Corpuscular HGB 28.5 pg (26.0-34.0); Mean Corpuscular HGB Conc 32.5 g/dL (31.5-36.5); Mean Corpuscular Volume 88 fL (80-100); Mean Platelet Volume 11.2 fL (9.1-12.4); NEUTROPHILS ABSOLUTE AUTO 3.26 K/mm3 (1.96-9.15); NEUTROPHILS PERCENT AUTO 61 % (41-73); Platelet Count 161 K/mm3 (150-400); RDW Coefficient Variation 14.3 % (11.7-14.2); RDW Standard Deviation 45.9 fL (35.1-46.3); White Blood Cell Count 5.34 K/mm3 (4.00-11.30)
[2017-07-28 11:46] LABS: Albumin, Blood 3.4 g/dL (3.4-5.0); Albumin/Globulin Ratio 0.9 (0.8-1.8); Bilirubin, Total 0.5 mg/dL (0.1-1.0); Bun/Creatinine Ratio 22.8 (12.0-20.0); Calcium, Blood 8.8 mg/dL (8.5-10.1); Creatinine, Blood 1.23 mg/dL (0.40-1.00); Globulin, Blood 3.6 g/dL (2.2-4.0); Potassium, Blood 5.2 mmol/L (3.5-5.5)
[2017-07-28] MEDS ORDERED: Percocet 5-3251 EACH PO (14:04)
[2017-07-28] MEDS ORDERED: ROBITUSSIN NIG237 ML PO (14:11)
== END 2017-07-28 14:19 | disposition home or self-care (01) ==
LOC: ER 10:23
PROVIDERS: Emergency Medicine
DX: S16.1XXA Strain of muscle, fascia and tendon at neck level, initial encounter (principal); R55 Syncope and collapse; M54.6 Pain in thoracic spine; M25.561 Pain in right knee; M25.521 Pain in right elbow; W19.XXXA Unspecified fall, initial encounter; Z88.5 Allergy status to narcotic agent; Z79.899 Other long term (current) drug therapy; E11.9 Type 2 diabetes mellitus without complications; I10 Essential (primary) hypertension
CPT/HCPCS: 36415; 71046; 72040; 72070; 72125; 80053; 85025; 93005; 93010; 96374; 99284; J3010

== ENCOUNTER 2018-08-04 14:59 | Inpatient (IN) | payer OTHER ==
[~2018-08-04] VITALS: Ht 167.6 cm; Wt 78.6 kg
[~2018-08-04 14:59] MED LIST changes: +BUSP15; +Bactrim Ds Tab1 EACH PO; +HYDCHL12.5 PO; +Keflex500 MG PO; +METF500C PO; +Novolog Fl100 UNIT/1 INJ; +Prilosec Otc20 MG PO; +ROBITUSSIN NIG237 ML PO; +TRAZ150T57 PO
[2018-08-04 15:41] LABS: BASOPHILS ABSOLUTE AUTO 0.04 K/mm3 (0.00-0.23); BASOPHILS PERCENT AUTO 1 % (0-2); EOSINOPHILS ABSOLUTE AUTO 0.09 K/mm3 (0.00-0.68); EOSINOPHILS PERCENT AUTO 1 % (0-6); Hematocrit 37.6 % (33.0-51.0); Hemoglobin 12.5 g/dL (11.5-16.0); IMMATURE GRAN ABSOLUTE AUTO 0.05 K/mm3 (0.00-0.10); IMMATURE GRAN PERCENT AUTO 1 % (0-1); LYMPHOCYTES ABSOLUTE AUTO 1.33 K/mm3 (0.84-5.20); LYMPHOCYTES PERCENT AUTO 16 % (21-46); MONOCYTES ABSOLUTE AUTO 0.54 K/mm3 (0.16-1.47); MONOCYTES PERCENT AUTO 6 % (4-13); Mean Corpuscular HGB 29.6 pg (26.0-34.0); Mean Corpuscular HGB Conc 33.2 g/dL (31.5-36.5); Mean Corpuscular Volume 89 fL (80-100); Mean Platelet Volume 11.9 fL (9.1-12.4); NEUTROPHILS ABSOLUTE AUTO 6.51 K/mm3 (1.96-9.15); NEUTROPHILS PERCENT AUTO 76 % (41-73); Platelet Count 191 K/mm3 (150-400); RDW Coefficient Variation 13.3 % (11.7-14.2); RDW Standard Deviation 43.4 fL (35.1-46.3); Red Blood Cell Count 4.22 M/mm3 (3.80-5.20); White Blood Cell Count 8.56 K/mm3 (4.00-11.30)
[2018-08-04 15:50] LABS: Troponin I 0.083 ng/mL (0.000-0.040)
[2018-08-04 16:16] LABS: Albumin, Blood 3.8 g/dL (3.4-5.0); Albumin/Globulin Ratio 1.1 (0.8-1.8); Bilirubin, Total 0.6 mg/dL (0.1-1.0); Bun/Creatinine Ratio 14.5 (12.0-20.0); Calcium, Blood 9.1 mg/dL (8.5-10.1); Creatinine, Blood 1.65 mg/dL (0.40-1.00); Globulin, Blood 3.5 g/dL (2.2-4.0); Potassium, Blood 5.1 mmol/L (3.5-5.5); Total Protein, Blood 7.3 g/dL (6.4-8.2)
[2018-08-04] MEDS ORDERED: LEVSOD75 PO (16:44)
[2018-08-04] MEDS ORDERED: Zanaflex4 MG PO (16:49)
[2018-08-04] MEDS ORDERED: INSULANPEN SC (16:51)
[2018-08-04] MEDS ORDERED: Metformin HCl500 MG PO (16:53)
--- NOTE | 2018-08-04 16:58 | NUR ---
NURSING SUMMARY ON ARRIVAL TO ICU RECEIVED PT FROM JAMES ED RN. ALERT AND ORIENTED X 4. 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 BP 86/45. PER JAMES, HR REMAINED STABLE IN THE 30'S AND BP WAS 118/66 JUST BEFORE LEAVING THE ED. CALLED DR. TORRES, CARDIOLOGY FOR CONSULT, CAME TO BEDSIDE. STARTED PT ON DOPAMINE GTT AT 5 MCG/KG/MIN AT 1724 AND INCREASED RATE TO 10 MCG/KG/MIN AT 1745. STARTED TRANSCUTANEOUS PACING AND CONSENTED FOR PACEMAKER PLACEMENT THIS EVENING. CARDIAC DIALS SUPERVISOR STAFF CALLED BY NURSING CARTON INSPECTOR TO PREPARE FOR PROCEDURE. MAGNESIUM = 1.6, STARTED MAGNESIUM SULFATE 2 GRAMS AND LACTATED RINGERS AT 125 ML/HR. PT HAS TWO IV SITES TO INCLUDE RIGHT AC FIELD START 20 G AND LEFT FOREARM 20G ED START. JAE PROCTOR RN IN ICU, ATTEMPTED TO START ANOTHER PRIOR TO GOING TO THE DIALS SUPERVISOR, WAS NOT SUCCESSFUL. LUNGS CLEAR, ROOM AIR, SATS 100%. C/O NAUSEA WITHOUT EMESIS. DENIES NEED FOR ANTI-EMETIC. C/O RIGHT SHOULDER AND NECK PAIN WITH INFLATION OF BP CUFF, MOVED TO LEFT ARM, BP 102/33. AT BEDSIDE. PATIENT WAS TAKEN TO THE DIALS SUPERVISOR AT 1800. AWAITING RETURN. OUTSTANDING ADMISSION DOCUMENTATION NEEDED: TO BRING IN PATIENTS MEDICATION BOTTLES TO VERIFY HOME MEDICATIONS. PROVIDED LIST OF MEDICATIONS AND WHEN QUESTIONED, HE WASN'T SURE ABOUT SOME OF THEM. HE WAS ASKED TO BRING THEM IN TO VERIFY. ALSO NEED TO COMPLETE THE ADMISSION HISTORY.
[2018-08-04] MEDS ORDERED: BASAGLAR K100 UNIT/1 SC (17:58)
[2018-08-04] MEDS ORDERED: BENZ100A PO (18:02)
[2018-08-04] MEDS ORDERED: ALBU90OI INH (18:03)
--- NOTE | 2018-08-04 20:15 | NUR ---
ASSUMPTION OF CARE: Pt returned from minilab operator at 1903. Transvenous placer in place to Rt IJ, rate set to 60 voltage @ 2. Heart monitor showed HR 58, BP stable, 02 96% on RA. Pt denies CP or SOB at this time. Shortly after arrival to unit, HR fluctuating from 30's-50's with non-capturing pacer spikes noted on monitor. Volts increased at that time to 3, HR returned to 58 without fluctuations. 100% ventricular paced with capture now noted. Pt is awake, alert and oriented x4. Complains of 8/10 right shoulder and neck pain, s/p syncope and fall prior to arrival at facility. PRN oxycodone/acetamenophen available for pain management. Pt has Rt BKA, redness and tenderness noted to distal end of stump, pt sts normal. Lt forearm IV to saline lock, flushed with 10ml NS, patent, dressing C/D/I. Rt forearm IV infusing LR @ 125ml/hr.
[2018-08-05 04:03] LABS: Bun/Creatinine Ratio 17.6 (12.0-20.0); Calcium, Blood 8.5 mg/dL (8.5-10.1); Creatinine, Blood 1.65 mg/dL (0.40-1.00); Magnesium, Blood 2.3 mg/dL (1.6-2.4); Potassium, Blood 4.7 mmol/L (3.5-5.5)
--- NOTE | 2018-08-05 06:17 | NUR ---
SHIFT SUMMARY: Pt awake, alert and oriented x4 throughout night. Pt denied CP or SOB through shift, VSS with HR at 58 with a 100% transvenous ventricular paced rhythm. Transvenous pacer site to Rt IJ WNL. Pt complaints of Rt shoulder pain effectively managed with PRN percocet. Peripheral IV x2 with NS infusing @ 125ml/hr.
--- NOTE | 2018-08-05 08:30 | NUR ---
ASSUMED CARE: REPORT RECEIVED FROM ROSE Salgado, RN & DEANDRA, STOCKBROKER. ASSUMED CARE OF THIS PT AT APPROX 0700. ON ASSESSMENT, PT IS A&O, PLEASANT & COOPERATIVE. SHE STS SOME CHRONIC PAIN TO NECK THAT IS EXACERBATED BY SYNCOPAL EPISODE/FALL AT HOME. MEDS PER EMAR. PT HAS BEEN NPO, PLAN IS FOR PACER PLACEMENT & ANGIO THIS AM. CALL TO HEART CENTER, TIME FOR PROCEDURE IS UNKNOWN AT THIS TIME. WILL CONTINUE TO MONITOR & UPDATE NEEDED.
--- NOTE | 2018-08-05 12:29 | NUR ---
TRANSFER TO HEART CENTER: HEART CENTER STAFF AT BEDSIDE TO PREP PT. PLAN IS FOR ANGIO, FOLLOWED BY PACER PLACEMENT. IS AT BEDSIDE & IS AWARE OF THIS & APPROXIMATE PROCEDURAL TIME. PT OUT OF ROOM AT 1225. WILL AWAIT PT RETURN & UPDATE NEEDED.
--- NOTE | 2018-08-05 15:34 | NUR ---
RETURN FROM HEART CENTER: PT ARRIVED BACK TO ROOM AT APPROX 1530. SHE IS AWAKE, A&O, ON ARRIVAL. R IJ LINE REMAINS IN PLACE THE HC STAFF WAS UNABLE TO START A SECONDARY PIV & THEY WANTED TO KEEP SOME ACCESS. NEW PACER SITE TO L CHEST WALL IS WNL. DRESSING CDI, ICE PACK IN PLACE. TR BAND TO R RADIAL PUNCTURE SITE W/ 9 CC AIR. AREA WNL, NO NEW BLEEDING, BRUISING OR HEMATOMA FORMATION NOTED. WILL CONTINUE TO MONITOR & UPDATE NEEDED.
--- NOTE | 2018-08-05 16:53 | NUR ---
DR. ARCOS: CALL TO PROVIDER REGARDING PT's CONTINUED C/O PAIN TO NECK & R SHOULDER. SHE NORMALLY TAKES PERCOCET 10/325 AT HOME & IS ONLY RECEIVING PERCOCET 5/325 DURING HOSPITALIZATION. STS OKAY TO INCREASE PAIN MEDS TO HOME DOSE. HTN IS ALSO DISCUSSED, THE PT HAS BEEN RUNNING 160-190s SBP SINCE RETURN FROM . HE WOULD NOT LIKE TO RESUME HER HOME DOSE OF METOPROLOL SUCCINATE R/T DECREASED RENAL FUNCTION, BUT WOULD INSTEAD LIKE TO START HER ON NORVASC. DR. ARCOS STS HE IS PLACING THESE ORDERS. WILL CONTINUE TO MONITOR & UDPATE NEEDED.
--- NOTE | 2018-08-05 16:58 | NUR ---
DISCONTINUED VENOUS LINE IN RT EJ. MANUAL PRESSURE HELD AND HEMOSTASIS OBTAINED. SITE COVERED WITH GAUZE AND TAPE.
--- NOTE | 2018-08-05 17:18 | NUR ---
SHIFT SUMMARY / PCU BED ASSIGNMENT: NO ACUTE CHANGES SINCE PT RETURNED FROM . SHE IS A&O, PLEASANT & COOPERATIVE. LS ARE CLEAR & PT REMAINS ON RA W/ O2 SATS > 92%. SHE HAS NO C/O SOB. RHYTHM IS 100% PACED W/ HR 65. HTN ADDRESSED IN PRIOR NOTE. BT x4, SHE HAS TOLERATED PO INTAKE WELL W/ NO C/O NAUSEA OR ABD PAIN. GOOD APPETITE. PT VOIDING W/O DIFFICULTY, URINE IS CLEAR/YELLOW. SKIN OVERALL CDI. R IJ LINE HAS BEEN REMOVED NOTED PRIOR, DRESSING CDI, AREA WNL. PACER SURGICAL SITE TO L CHEST WNL, ICE PACK IN PLACE. TR BAND REMAINS ON R WRIST, DEFLATION IN PROGRESS. PT TOLERATING WELL W/ NO BLEEDING, BRUISING OR HEMATOMA FORMATION. ROOM PCU-06 HAS BEEN ASSIGNED TO PT FOR TX. IT HAS BEEN REQUESTED THAT THIS TX WAIT UNTIL JUST BEFORE SHIFT CHANGE. WILL CALL REPORT WHEN THAT RN AVAILABLE. WILL CONTINUE TO MONITOR & RECOVER R RADIAL PUNCTURE SITE UNTIL THEN.
--- NOTE | 2018-08-05 18:00 | NUR ---
ALL PT'S BELONGINGS, MEDICAL SUPPLIES, LE PROSTHESIS BROUGHT TO PCU-6.
[2018-08-06 03:58] LABS: Bun/Creatinine Ratio 15.7 (12.0-20.0); Calcium, Blood 8.8 mg/dL (8.5-10.1); Creatinine, Blood 1.4 mg/dL (0.40-1.00); Potassium, Blood 4.5 mmol/L (3.5-5.5)
--- NOTE | 2018-08-06 06:44 | NUR ---
SHIFT SUMMARY PATIENT PLEASENT AND COOPERATIVE THROUGHOUT THE NIGHT. PATIENT APPEARED TO NAP ON AND OFF THROUGHOUT THE NIGHT. PATIENT MEDICATED FOR PAIN PER EMAR. PATIENT'S VITAL SIGNS CHARTED. PACEMAKER SITE TO LEFT CHEST WALL HAS SOME SLIGHT BLOODY DRAINAGE NOTED BUT NONE THAT HAS LEAKED OUTSIDE OF THE DRESSING. NO FURTHER FORMATION OF BLOODY DRAINAGE NOTED THROUGHOUT THE NIGHT. PATIENT'S TR BAND WAS COMPLETELY DEFLATED AT APPROX 2010 AND WAS REMOVED LAST NIGHT AT APPROX 2130. ANGIO SITE TO R WRIST APPEARS TO HAVE SOME BRUISING BUT NO FURTHER BRUISING HAS OCCURED. A SLIGHT LUMP NOTED AT ANGIO SITE. NO ACTIVE BLEEDING NOTED. NO CHANGES HAVE OCCURRED TO ANGIO SITE SINCE REMOVAL OF THE TR BAND LAST NIGHT. ARMBOARD IN PLACE. IV ABX GIVEN PER ORDERS. WILL CONTINUE TO MONITOR PATIENT AND REPORT TO ONCOMING RN.
[2018-08-06] MEDS ORDERED: Percocet 10-321 EACH PO (09:16)
[2018-08-06] MEDS ORDERED: AMLO10 PO (09:18)
[2018-08-06] MEDS ORDERED: Nicoderm Cq1 EAC1 TOP (09:19)
--- NOTE | 2018-08-06 10:28 | NUR ---
ASSUMED CARE PT ALERT AND ORIENTED. VS STABLE. DR. LLANOS IN TO SEE PT THIS AM WITH DISCHARGE ORDERS. DR. MARTINEZ IN TO ASSESS PACER SITE AND PROVIDE EDUCATION. DISCHARGE INSTRUCTIONS PROVIDED TO PT AND . NEW MEDICATIONS AND DIRECTIONS WITH EDUCATION PROVIDED. ALL QUESTIONS ANSWERED. IV REMOVED AND INTACT. TELEMETRY REMOVED. PT TAKEN OUT BY WHEELCHAIR.
== END 2018-08-06 10:21 | disposition home or self-care (01) | DRG 259 ==
LOC: ER 14:59 → ICUW 16:36 → ICUE 16:36 → PCU 08-05 18:37
PROVIDERS: Emergency Medicine; ADMIT Internal Medicine
PROC: 0JH606Z Insertion of Pacemaker, Dual Chamber into Chest Subcutaneous Tissue and Fascia, Open Approach (ICD-10-PCS; principal; 2018-08-05)
PROC: 4A023N7 Measurement of Cardiac Sampling and Pressure, Left Heart, Percutaneous Approach (ICD-10-PCS; 2018-08-05)
PROC: B2051ZZ Plain Radiography of Left Heart using Low Osmolar Contrast (ICD-10-PCS; 2018-08-05)
DX: I44.2 Atrioventricular block, complete (principal); E87.1 Hypo-osmolality and hyponatremia; J44.9 Chronic obstructive pulmonary disease, unspecified; E03.9 Hypothyroidism, unspecified; E78.5 Hyperlipidemia, unspecified; F17.210 Nicotine dependence, cigarettes, uncomplicated; F32.9 Major depressive disorder, single episode, unspecified; F41.9 Anxiety disorder, unspecified; I12.9 Hypertensive chronic kidney disease with stage 1 through stage 4 chronic kidney disease, or unspecified chronic kidney disease; E11.22 Type 2 diabetes mellitus with diabetic chronic kidney disease; N18.3 Chronic kidney disease, stage 3 (moderate); G25.81 Restless legs syndrome; Z89.511 Acquired absence of right leg below knee; Z79.4 Long term (current) use of insulin; I95.9 Hypotension, unspecified
CPT/HCPCS: 33208; 33210; 36415; 71045; 71046; 72040; 80048; 80053; 82947; 83735; 84443; 84484; 85025; 93005; 93010; 93306; 93458; 96374; 96375; 99152; 99153; 99285-25; C1769; C1785; C1894; C1898; J0360; J0461; J0690; J1265; J1644; J2250; J2405; J3010; J3475; J7030; J7040; J7120; Q9967

== ENCOUNTER 2018-08-28 14:49 | Emergency (ER) | payer OTHER ==
[~2018-08-28] VITALS: Ht 167.6 cm; Wt 77.1 kg
[~2018-08-28 14:49] MED LIST changes: +AMLO10 PO; +BENZ100A PO; +LEVSOD75 PO; +Metformin HCl500 MG PO; +Nicoderm Cq1 EAC1 TOP; +Zanaflex4 MG PO
[2018-08-28 15:28] LABS: BASOPHILS ABSOLUTE AUTO 0.03 K/mm3 (0.00-0.23); BASOPHILS PERCENT AUTO 0 % (0-2); EOSINOPHILS ABSOLUTE AUTO 0.14 K/mm3 (0.00-0.68); EOSINOPHILS PERCENT AUTO 2 % (0-6); Hemoglobin 12.5 g/dL (11.5-16.0); IMMATURE GRAN ABSOLUTE AUTO 0.06 K/mm3 (0.00-0.10); IMMATURE GRAN PERCENT AUTO 1 % (0-1); LYMPHOCYTES ABSOLUTE AUTO 3.62 K/mm3 (0.84-5.20); LYMPHOCYTES PERCENT AUTO 38 % (21-46); MONOCYTES ABSOLUTE AUTO 0.64 K/mm3 (0.16-1.47); MONOCYTES PERCENT AUTO 7 % (4-13); Mean Corpuscular HGB 29.5 pg (26.0-34.0); Mean Corpuscular HGB Conc 32.1 g/dL (31.5-36.5); Mean Corpuscular Volume 92 fL (80-100); Mean Platelet Volume 11.3 fL (9.1-12.4); NEUTROPHILS ABSOLUTE AUTO 5.14 K/mm3 (1.96-9.15); NEUTROPHILS PERCENT AUTO 53 % (41-73); Platelet Count 219 K/mm3 (150-400); RDW Standard Deviation 43.7 fL (35.1-46.3); Red Blood Cell Count 4.24 M/mm3 (3.80-5.20); White Blood Cell Count 9.63 K/mm3 (4.00-11.30)
[2018-08-28 15:37] LABS: Alanine Aminotransfer (ALT/SGP 11 U/L (12-78); Alk Phos 59 U/L (50-136); Anion Gap 17 mmol/L (6-16); Aspartate Aminotrans (AST/SGOT 14 U/L (12-37); Bilirubin, Total 0.3 mg/dL (0.1-1.0); Blood Urea Nitrogen 33 mg/dL (8-24); Bun/Creatinine Ratio 22.8 (12.0-20.0); CO2, Blood 16 mmol/L (21-32); Calcium, Blood 9.2 mg/dL (8.5-10.1); Chloride, Blood 96 mmol/L (98-108); Creatinine, Blood 1.45 mg/dL (0.40-1.00); Globulin, Blood 4.1 g/dL (2.2-4.0); Glomerular Filtration Rate 40 (60-); Glucose, Blood 370 mg/dL (70-99); Potassium, Blood 4.4 mmol/L (3.5-5.5); Sodium, Blood 129 mmol/L (136-145); Total Protein, Blood 8.1 g/dL (6.4-8.2); Troponin I <0.015 ng/mL (0.000-0.040)
== END 2018-08-28 18:27 | disposition home or self-care (01) ==
LOC: ER 14:49
PROVIDERS: Physician Assistant
DX: S40.011A Contusion of right shoulder, initial encounter (principal); R55 Syncope and collapse; I12.9 Hypertensive chronic kidney disease with stage 1 through stage 4 chronic kidney disease, or unspecified chronic kidney disease; E78.5 Hyperlipidemia, unspecified; E87.1 Hypo-osmolality and hyponatremia; F32.9 Major depressive disorder, single episode, unspecified; J44.9 Chronic obstructive pulmonary disease, unspecified; G25.81 Restless legs syndrome; N18.9 Chronic kidney disease, unspecified; F17.210 Nicotine dependence, cigarettes, uncomplicated; W19.XXXA Unspecified fall, initial encounter
CPT/HCPCS: 36415; 70450; 73030; 80053; 84484; 85025; 93005; 93010; 96361; 96374; 99285-25; G0480; J1170; J7030

== ENCOUNTER 2018-12-05 15:39 | Emergency (ER) | payer OTHER ==
[~2018-12-05] VITALS: Ht 167.6 cm; Wt 72.6 kg
[2018-12-05] MEDS ORDERED: Percocet 7.5-31 EACH PO (16:05)
[2018-12-05] MEDS ORDERED: IBU800 MG PO (16:05)
== END 2018-12-05 16:34 | disposition home or self-care (01) ==
LOC: ER 15:39
DX: M54.12 Radiculopathy, cervical region (principal); I12.9 Hypertensive chronic kidney disease with stage 1 through stage 4 chronic kidney disease, or unspecified chronic kidney disease; M62.838 Other muscle spasm; E11.22 Type 2 diabetes mellitus with diabetic chronic kidney disease; N18.9 Chronic kidney disease, unspecified; F41.9 Anxiety disorder, unspecified; E78.5 Hyperlipidemia, unspecified; J44.9 Chronic obstructive pulmonary disease, unspecified; F17.210 Nicotine dependence, cigarettes, uncomplicated; Z88.6 Allergy status to analgesic agent; Z88.5 Allergy status to narcotic agent; Z79.899 Other long term (current) drug therapy; Z79.4 Long term (current) use of insulin
CPT/HCPCS: 96372; 99283-25; J3010

== ENCOUNTER 2019-02-11 20:20 | Inpatient (IN) | payer OTHER ==
[~2019-02-11] VITALS: Ht 167.6 cm; Wt 85.5 kg
[~2019-02-11 20:20] MED LIST changes: +Buspirone HCl15 MG PO; +IBU800 MG PO; -Metformin HCl500 MG PO; +OMEPRAZOLE20 MG PO; +Percocet 7.5-31 EACH PO; -Prilosec Otc20 MG PO; +TRAZ100 PO; -TRAZ150T57 PO
[2019-02-11] MEDS ORDERED: GABA300 PO (20:44)
[2019-02-11] MEDS ORDERED: GABA300T24 PO (20:45)
[2019-02-11] MEDS ORDERED: LISI5 PO (20:46)
[2019-02-11 21:13] LABS: BASOPHILS ABSOLUTE AUTO 0.02 K/mm3 (0.00-0.23); BASOPHILS PERCENT AUTO 0 % (0-2); EOSINOPHILS PERCENT AUTO 0 % (0-6); Hematocrit 32.7 % (33.0-51.0); Hemoglobin 10.6 g/dL (11.5-16.0); IMMATURE GRAN ABSOLUTE AUTO 0.03 K/mm3 (0.00-0.10); IMMATURE GRAN PERCENT AUTO 0 % (0-1); LYMPHOCYTES PERCENT AUTO 4 % (21-46); MONOCYTES ABSOLUTE AUTO 0.36 K/mm3 (0.16-1.47); MONOCYTES PERCENT AUTO 3 % (4-13); Mean Corpuscular HGB Conc 32.4 g/dL (31.5-36.5); Mean Corpuscular Volume 93 fL (80-100); Mean Platelet Volume 11.2 fL (9.1-12.4); NEUTROPHILS ABSOLUTE AUTO 10.47 K/mm3 (1.96-9.15); NEUTROPHILS PERCENT AUTO 93 % (41-73); Platelet Count 189 K/mm3 (150-400); RDW Coefficient Variation 13.9 % (11.7-14.2); RDW Standard Deviation 46.9 fL (35.1-46.3); Red Blood Cell Count 3.53 M/mm3 (3.80-5.20); White Blood Cell Count 11.28 K/mm3 (4.00-11.30)
[2019-02-11 21:27] LABS: International Normalized Ratio 1.05; Prothrombin Time Results 11.1 Sec (9.7-11.5)
[2019-02-11 21:32] LABS: Albumin, Blood 3.3 g/dL (3.4-5.0); Albumin/Globulin Ratio 0.8 (0.8-1.8); Bilirubin, Total 0.5 mg/dL (0.1-1.0); Bun/Creatinine Ratio 25.4 (12.0-20.0); Calcium, Blood 8.8 mg/dL (8.5-10.1); Creatinine, Blood 1.77 mg/dL (0.40-1.00); Globulin, Blood 3.9 g/dL (2.2-4.0); Potassium, Blood 4.7 mmol/L (3.5-5.5); Total Protein, Blood 7.2 g/dL (6.4-8.2)
[2019-02-11 23:25] LABS: Source, Urine Clean Catch
[2019-02-11] MEDS ORDERED: Amlodipine Besy10 MG PO (23:31)
[2019-02-11 23:33] LABS: Bilirubin, Urine Neg (Neg); Blood, Urine Neg (Neg); Glucose Qualitative, Urine Neg (Neg); Ketones, Urine Neg (Neg); Leukocyte Esterase, Urine Neg (Neg); Nitrite, Urine Neg (Neg); Protein, Urine 1+ (Neg); Specific Gravity, Urine 1.015 (1.003-1.022); Urobilinogen, Urine NORM (Normal)
[2019-02-11 23:43] LABS: Appearance, Urine Clear (Clear); Color, Urine Yellow (P-Yellow)
[2019-02-11] MEDS ORDERED: BASAGLAR K100 UNIT/1 (23:52)
[2019-02-12 00:49] LABS: BASOPHILS ABSOLUTE AUTO 0.01 K/mm3 (0.00-0.23); BASOPHILS PERCENT AUTO 0 % (0-2); EOSINOPHILS PERCENT AUTO 0 % (0-6); Hematocrit 29.9 % (33.0-51.0); Hemoglobin 9.5 g/dL (11.5-16.0); IMMATURE GRAN ABSOLUTE AUTO 0.04 K/mm3 (0.00-0.10); IMMATURE GRAN PERCENT AUTO 0 % (0-1); LYMPHOCYTES ABSOLUTE AUTO 0.83 K/mm3 (0.84-5.20); LYMPHOCYTES PERCENT AUTO 8 % (21-46); MONOCYTES ABSOLUTE AUTO 0.48 K/mm3 (0.16-1.47); MONOCYTES PERCENT AUTO 4 % (4-13); Mean Corpuscular HGB 29.4 pg (26.0-34.0); Mean Corpuscular HGB Conc 31.8 g/dL (31.5-36.5); Mean Corpuscular Volume 93 fL (80-100); Mean Platelet Volume 10.5 fL (9.1-12.4); NEUTROPHILS ABSOLUTE AUTO 9.61 K/mm3 (1.96-9.15); NEUTROPHILS PERCENT AUTO 88 % (41-73); Platelet Count 159 K/mm3 (150-400); RDW Coefficient Variation 13.8 % (11.7-14.2); RDW Standard Deviation 46.6 fL (35.1-46.3); Red Blood Cell Count 3.23 M/mm3 (3.80-5.20); White Blood Cell Count 10.97 K/mm3 (4.00-11.30)
[2019-02-12 01:24] LABS: Alanine Aminotransfer (ALT/SGP <6 U/L (12-78); Albumin/Globulin Ratio 0.8 (0.8-1.8); Alk Phos 55 U/L (50-136); Anion Gap 6 mmol/L (6-16); Aspartate Aminotrans (AST/SGOT 18 U/L (12-37); Bilirubin, Total 0.3 mg/dL (0.1-1.0); Blood Urea Nitrogen 47 mg/dL (8-24); Bun/Creatinine Ratio 27.5 (12.0-20.0); CO2, Blood 28 mmol/L (21-32); Calcium, Blood 8.3 mg/dL (8.5-10.1); Chloride, Blood 100 mmol/L (98-108); Creatinine, Blood 1.71 mg/dL (0.40-1.00); Globulin, Blood 3.6 g/dL (2.2-4.0); Glomerular Filtration Rate 33 (60-); Glucose, Blood 125 mg/dL (70-99); Potassium, Blood 4.6 mmol/L (3.5-5.5); Sodium, Blood 134 mmol/L (136-145); Total Protein, Blood 6.6 g/dL (6.4-8.2)
--- NOTE | 2019-02-12 04:50 | NUR ---
PCU ADMIT / SHIFT SUMMARY PT BROUGHT TO PCU RM 07 FROM ER BY JAMEY @ APPROX 0000. PT SLID OVER FROM [place] TO PCU BED PER PT REQUEST W/ PT STATING "I CAN WALK IF MY LEG IS ON, BUT I'M JUST TOO TIRED RIGHT NOW." PT W/ R BKA W/ PROSTHETIC LEG. PT A&O X4. VSS. MONITOR SHOWS PACING, HR 60'S-80'S. SPO2 > 92% ON 2L NC W/ REPORT OF RA @ BASELINE. PT C/O PAIN LOCATED "BACK OF MY NECK" IN WHICH PT REPORTS NECK SURGERY TO BE DONE IN NEAR FUTURE. NS GTT INFUSING PER ORDERS. WILL CONTINUE TO MONITOR AND PROVIDE CARE UNTIL REPORT OFF TO DAY SHIFT RN.
--- NOTE | 2019-02-12 20:00 | NUR ---
CARE ASSUMPTION PT A&O X4. VSS. SPO2 90% ON 4.5L NC. EXP WHEEZE T/O LUNGS. PT W/ OCCASSIONAL NONPRODUCTIVE COUGH. MONITOR SHOWS SR W/ OCCASSIONAL PACING, HR 80'S. WILL CONTINUE TO MONITOR AND PROVIDE CARE.
--- NOTE | 2019-02-12 22:45 | NUR ---
NICOTINE PATCH / CALL TO MD WILL REQUESTING NICOTINE PATCH W/ REPORT OF SMOKING "ABOUT HALF A PACK OF CIGARETTES" A DAY. CALL TO MD BLANK @ APPROX 1640 W/ ORDER RECIEVED FOR NICOTINE PATCH, SEE EMAR.
--- NOTE | 2019-02-13 06:31 | NUR ---
SHIFT SUMMARY PT A&O X4. VSS. O2 TITRATED FROM 4.5L NC TO 6L OXYMIZER FOR SPO2 OF 90% THIS SHIFT. MONITOR SHOWS SR W/ OCCASSIONAL PACING. PT C/O NECK PAIN, MEDICATED PER EMAR X2 THIS SHIFT. PT ASKING TO GO HOME TODAY. WILL CONTINUE TO MONITOR AND PROVIDE CARE UNTIL REPORT OFF TO DAY SHIFT RN.
[2019-02-13 06:45] LABS: BASOPHILS ABSOLUTE AUTO 0.02 K/mm3 (0.00-0.23); BASOPHILS PERCENT AUTO 0 % (0-2); EOSINOPHILS PERCENT AUTO 0 % (0-6); Hematocrit 30.9 % (33.0-51.0); Hemoglobin 10.1 g/dL (11.5-16.0); IMMATURE GRAN ABSOLUTE AUTO 0.21 K/mm3 (0.00-0.10); IMMATURE GRAN PERCENT AUTO 1 % (0-1); LYMPHOCYTES ABSOLUTE AUTO 0.39 K/mm3 (0.84-5.20); LYMPHOCYTES PERCENT AUTO 3 % (21-46); MONOCYTES ABSOLUTE AUTO 0.39 K/mm3 (0.16-1.47); MONOCYTES PERCENT AUTO 3 % (4-13); Mean Corpuscular HGB 30.5 pg (26.0-34.0); Mean Corpuscular HGB Conc 32.7 g/dL (31.5-36.5); Mean Corpuscular Volume 93 fL (80-100); Mean Platelet Volume 11.4 fL (9.1-12.4); NEUTROPHILS ABSOLUTE AUTO 13.87 K/mm3 (1.96-9.15); NEUTROPHILS PERCENT AUTO 93 % (41-73); Platelet Count 165 K/mm3 (150-400); RDW Coefficient Variation 13.9 % (11.7-14.2); RDW Standard Deviation 47.1 fL (35.1-46.3); Red Blood Cell Count 3.31 M/mm3 (3.80-5.20); White Blood Cell Count 14.88 K/mm3 (4.00-11.30)
[2019-02-13 06:58] LABS: Bun/Creatinine Ratio 29.4 (12.0-20.0); Calcium, Blood 8.7 mg/dL (8.5-10.1); Creatinine, Blood 1.7 mg/dL (0.40-1.00); Potassium, Blood 5.1 mmol/L (3.5-5.5)
--- NOTE | 2019-02-13 12:12 | NUR ---
Spiritual care visit conducted. Patient is sitting up in bed and eating lunch. Patient openly tells me about her of 26 years and about her anurag in God but she does not believe in faith. Patient doesn't show any signs of spiriutla distress but welcomes prayer especially for her who is very worried about her. I listen empathically, conduct a life review, normalize patient experience, reinforce helpful attitudes and practices and provide prayer. Patient responds well and shows signs of an elevated mood. I will continue to remain available to patient and family.
[2019-02-13 12:52] LABS: Base Excess Venous -6.6 mmol/L; Bicarbonate Venous 19.3 mmol/L (24.0-30.0); PCO2 Venous 36.9 mmHg (38-42); PO2 Venous 71.6 mmHg (38-42); pH Blood Venous 7.33 (7.34-7.37)
--- NOTE | 2019-02-13 12:52 | NUR ---
PT AWAKE DURING SHIFT REPORT. A&O, PLEASANT AND CO-OP. ADMITTED FOR SEPSIS R/T ASP PNM FROM VOMITING. IDDM WITH R BKA. CBG'S ELEVATED; MEDICATED PER MED SS WITH LANTUS GIVEN. CBG'S PRIOR TO LUNCH ELEVATED FURTHER. DR COREA NOTIFIED; CHANGED TO HSS WITH ADDITIONAL INSULIN GIVEN PER MD AND HSS. LIDOCAINE PATCH ORDERED AND PLACED TO NECK PER PT REQUEST. TX ORDERS TO MEDICAL FLOOR PLACED. SOME MEDICATIONS CHANGED TO PO; SEE EMAR. REPORT CALLED TO MARGARET JOSEPH; PT TX TO RM 364.
--- NOTE | 2019-02-13 13:30 | NUR ---
PT TRANSFERED/SATING IN THE 70S. WHEN PT ARRIVED TO FLOOR, PT WAS SATING IN THE 70S ON 6L VIA OXIMIZER. PT INCREASED TO 10L BY THIS RN WITH NO CHANGE IN SATS. RT CALLED. RT CAME TO ROOM. MULTIPLE PULSE SAT DEVICES CONFIRMED PT WAS SATING IN THE 70S. PT INCREASED TO 15L VIA OXIMIZER. SLIGHT INCREASE IN O2 SATS. PT NOW SATING AT 88 ON 15L VIA HIGH FLOW NC IN THE MOUTH. DR. PORTILLO CALLED. URGENT ABG ORDERED. PT TO BE TRANSFERED BACK TO PCU. WILL CONTINUE TO MONITOR.
--- NOTE | 2019-02-13 14:02 | NUR ---
CHEST XRAY & ABG BEING OBTAINED AT THIS TIME.
--- NOTE | 2019-02-13 14:25 | NUR ---
PT TRANSFERED TO PCU7 PT TRANSFERED TO PCU7 BY THIS RN. STAT CHEST XRAY & ABG COMPLETED BEFORE TRANSFER. PT SATING AT 86 PRIOR TO TRANSFER. RT AWAITING PT IN PCU TO START BIPAP. JAKE PAUL UPDATED ON PT CHANGES PRIOR TO DC.
[2019-02-13 14:42] LABS: PCO2 Venous 31.8 mmHg (38-42); pH Blood Venous 7.29 (7.34-7.37)
[2019-02-13 14:43] LABS: Base Excess Venous -11.3 mmol/L; Bicarbonate Venous 15.8 mmol/L (24.0-30.0); PO2 Venous 41.8 mmHg (38-42)
--- NOTE | 2019-02-13 18:00 | NUR ---
SHIFT SUMMARY PT TX BACK TO PCU 7 AFTER O2 SATS DECREASED DURING TX TO MED FLOOR. PT REMAINED ON BIPAP UNTIL DINNER, BIOX MID TO LOW 90"S. PT TOLERATING WELL. BIPAP OFF FOR PT TO EAT DINNER AND NC PLACED ON 10L. PT TOLERATED WELL LONG ENOUGH TO EAT, BUT THEN BIOX STARTED DECREASING SO PT PLACED BACK ON BIPAP. LIDOCAINE PATCH TO NECK REMOVED BY PT DURING DINNER. PT REPORTED "IT WAS NO LONGER WORKING". CBG'S IMPROVED FROM EARLIER IN THE DAY. BP IMPROVED WELL. PT IS A&O AT THIS TIME. RESTING QUIETLY WATCHING TV. NO S/SX OF DISTRESS NOTIED OR REPORTED PRESENTLY . CALL LT IN REACH.
[2019-02-14 03:40] LABS: BASOPHILS ABSOLUTE AUTO 0.02 K/mm3 (0.00-0.23); BASOPHILS PERCENT AUTO 0 % (0-2); EOSINOPHILS PERCENT AUTO 0 % (0-6); Hematocrit 27.7 % (33.0-51.0); Hemoglobin 9.1 g/dL (11.5-16.0); IMMATURE GRAN ABSOLUTE AUTO 0.28 K/mm3 (0.00-0.10); IMMATURE GRAN PERCENT AUTO 2 % (0-1); LYMPHOCYTES ABSOLUTE AUTO 0.37 K/mm3 (0.84-5.20); LYMPHOCYTES PERCENT AUTO 2 % (21-46); MONOCYTES ABSOLUTE AUTO 0.59 K/mm3 (0.16-1.47); MONOCYTES PERCENT AUTO 3 % (4-13); Mean Corpuscular HGB 29.3 pg (26.0-34.0); Mean Corpuscular HGB Conc 32.9 g/dL (31.5-36.5); Mean Platelet Volume 11.8 fL (9.1-12.4); NEUTROPHILS ABSOLUTE AUTO 17.53 K/mm3 (1.96-9.15); NEUTROPHILS PERCENT AUTO 93 % (41-73); Platelet Count 186 K/mm3 (150-400); RDW Coefficient Variation 13.8 % (11.7-14.2); RDW Standard Deviation 44.7 fL (35.1-46.3); Red Blood Cell Count 3.11 M/mm3 (3.80-5.20); White Blood Cell Count 18.79 K/mm3 (4.00-11.30)
[2019-02-14 03:41] LABS: Mean Corpuscular Volume 89 fL (80-100)
[2019-02-14 03:59] LABS: Albumin, Blood 2.7 g/dL (3.4-5.0); Anion Gap 7 mmol/L (6-16); Blood Urea Nitrogen 53 mg/dL (8-24); Bun/Creatinine Ratio 29.8 (12.0-20.0); CO2, Blood 24 mmol/L (21-32); Calcium, Blood 8.8 mg/dL (8.5-10.1); Chloride, Blood 97 mmol/L (98-108); Creatinine, Blood 1.78 mg/dL (0.40-1.00); Glomerular Filtration Rate 31 (60-); Glucose, Blood 208 mg/dL (70-99); Magnesium, Blood 1.9 mg/dL (1.6-2.4); Phosphorus, Blood 4.3 mg/dL (2.5-4.9); Potassium, Blood 4.6 mmol/L (3.5-5.5); Sodium, Blood 128 mmol/L (136-145)
--- NOTE | 2019-02-14 08:13 | NUR ---
SHIFT SUMMARY PATIENT COOPERATIVE THORUGHOUT THE SHIFT. PATIENT MEDICATED FOR PAIN PER EMAR. PATIENT ON THE BIPAP FOR MOST OF THE NIGHT. PATIENT ONLY ABLE TO TOLERATE SHORT 1-2 MINUTE BREAKS FROM BIPAP ON HIGH FLOW 10L BEFORE HER OXYGEN STATS QUICKLY DROP INTO THE 70'S. PATIENT PLACED BACK ON BIPAP AT THESE TIMES. PATIENT APPEARED TO SLEEP ON AND OFF THROUGHOUT MOST OF THE NIGHT. IV ABX GIVEN PER ORDERS. COTNINUOUS BIOX IN PLACE. VITAL SIGNS CHARTED. REPORT GIVEN TO ONCOMING RN.
--- NOTE | 2019-02-14 17:46 | NUR ---
PATIENT CONTINUES TO USE BIPAP. SATS DROPPING QUICKLY WHEN TAKING OFF TO EAT. SATS NOT SUSTAINING WITH OXIMYZER. FREQUENTLY BREAKS BETWEEN MEALS TO WEAR BIPAP. GRAPHIC ART DESIGNER MADE ADJUSTMENTS TO POC. NEW IV PLACED. PATIENT RECIEVED A BED BATH. ABLE TO MAKE HER NEEDS KNOWN. ALERT TO SITUATION, FAMILY, STAFF, DATE TIME.
[2019-02-15 04:12] LABS: BASOPHILS ABSOLUTE AUTO 0.02 K/mm3 (0.00-0.23); BASOPHILS PERCENT AUTO 0 % (0-2); EOSINOPHILS PERCENT AUTO 0 % (0-6); Hematocrit 28.7 % (33.0-51.0); Hemoglobin 9.4 g/dL (11.5-16.0); IMMATURE GRAN ABSOLUTE AUTO 0.26 K/mm3 (0.00-0.10); IMMATURE GRAN PERCENT AUTO 2 % (0-1); LYMPHOCYTES PERCENT AUTO 2 % (21-46); MONOCYTES ABSOLUTE AUTO 0.46 K/mm3 (0.16-1.47); MONOCYTES PERCENT AUTO 3 % (4-13); Mean Corpuscular HGB Conc 32.8 g/dL (31.5-36.5); NEUTROPHILS ABSOLUTE AUTO 13.76 K/mm3 (1.96-9.15); NEUTROPHILS PERCENT AUTO 93 % (41-73); Platelet Count 220 K/mm3 (150-400); RDW Coefficient Variation 13.9 % (11.7-14.2); RDW Standard Deviation 46.9 fL (35.1-46.3); Red Blood Cell Count 3.13 M/mm3 (3.80-5.20)
[2019-02-15 04:15] LABS: Mean Corpuscular Volume 92 fL (80-100)
[2019-02-15 04:31] LABS: Albumin, Blood 2.5 g/dL (3.4-5.0); Anion Gap 8 mmol/L (6-16); Blood Urea Nitrogen 53 mg/dL (8-24); Bun/Creatinine Ratio 31.5 (12.0-20.0); CO2, Blood 24 mmol/L (21-32); Calcium, Blood 8.6 mg/dL (8.5-10.1); Chloride, Blood 101 mmol/L (98-108); Creatinine, Blood 1.68 mg/dL (0.40-1.00); Glomerular Filtration Rate 34 (60-); Glucose, Blood 238 mg/dL (70-99); Phosphorus, Blood 3.5 mg/dL (2.5-4.9); Potassium, Blood 5.3 mmol/L (3.5-5.5); Sodium, Blood 133 mmol/L (136-145)
--- NOTE | 2019-02-15 06:29 | NUR ---
SHIFT SUMMARY PATIENT SLEPT WELL THROUGH NIGHT. OXYGEN MAINTAINED WELL ON BIPAP, 01/22, 70%. DID HAVE DOWN TO 65% AT ONE POINT, INCREASED TO 70% TO KEEP SPO2 ABOVE 87%. WAS ABLE TO BE ON OXIMIZER
--- NOTE | 2019-02-15 18:18 | NUR ---
SHIFT NOTE PT HAS INTERMITENTLY BEEN SWTICHED BACK AND FORTH BETWEEN AIRVO AND BIPAP T/O SHIFT. PT PREFERS TO BE ON AIRVO OPPOSED TO BIPAP, BUT IS ONLY ABLE TO TOLERATE AIRVO FOR APPROX 2 HOURS BEFORE NEEDING TO PLACED ON BIPAP. IV TO LFA INFILTRATED WHICH CAUSED DELAY IN ANTIOBIOTICS. ICU WAS CALLED FOR POWERGLIDE WHICH WAS NOT SUCCESSFUL, 22G IV WAS PLACED IN RT BREAST.
--- NOTE | 2019-02-15 18:24 | NUR ---
Initial Visit: Palliative Care Consult for AD/POLST. Pt is A&O and reports 7/10 pain in her neck. She reports current regimen is managing her pain. Pt reports mild but manageable anxiety due to not smoking. Pt denies nausea at this time. Pt reports breathing is improving and denies SOB at this time. Pt reports living with her and her daughter lives across the street from her. She is of Je[employer] Witness anurag but does not go to hoahaoism. Pt reports her and daughter are supportive of her needs. Pt reports at baseline she is independent of her ADLs. Engaged in therapeutic discussion regarding AD/POLST. Educated Pt on the importance of having wishes for life sustaining measures documented on paper. Educated on Advanced Directive and each section to complete. Pt appears to struggle with understanding purpose of AD. She also states having difficulty with reading. She states her handles her medical issues. Suggested waiting to complete an AD until she can discuss with . Pt is agreeable with this suggestion. At this point Pt's O2 saturations are dropping down to 80 to 82. Instructed Pt to take a few deep breaths through the nose and saturations increased to low 90's. Ended visit to allow Pt to rest. Discussed case with bedside nurse Hodan. Palliative Care will remain available.
[2019-02-16 04:09] LABS: BASOPHILS ABSOLUTE AUTO 0.01 K/mm3 (0.00-0.23); BASOPHILS PERCENT AUTO 0 % (0-2); EOSINOPHILS PERCENT AUTO 0 % (0-6); Hematocrit 30.1 % (33.0-51.0); Hemoglobin 9.9 g/dL (11.5-16.0); IMMATURE GRAN ABSOLUTE AUTO 0.37 K/mm3 (0.00-0.10); IMMATURE GRAN PERCENT AUTO 3 % (0-1); LYMPHOCYTES PERCENT AUTO 4 % (21-46); MONOCYTES ABSOLUTE AUTO 0.52 K/mm3 (0.16-1.47); MONOCYTES PERCENT AUTO 4 % (4-13); Mean Corpuscular HGB 29.5 pg (26.0-34.0); Mean Corpuscular HGB Conc 32.9 g/dL (31.5-36.5); Mean Corpuscular Volume 90 fL (80-100); Mean Platelet Volume 11.7 fL (9.1-12.4); NEUTROPHILS ABSOLUTE AUTO 12.73 K/mm3 (1.96-9.15); NEUTROPHILS PERCENT AUTO 90 % (41-73); Platelet Count 244 K/mm3 (150-400); RDW Standard Deviation 45.8 fL (35.1-46.3); Red Blood Cell Count 3.36 M/mm3 (3.80-5.20); White Blood Cell Count 14.13 K/mm3 (4.00-11.30)
[2019-02-16 04:26] LABS: Bun/Creatinine Ratio 32.3 (12.0-20.0); Calcium, Blood 8.6 mg/dL (8.5-10.1); Creatinine, Blood 1.55 mg/dL (0.40-1.00); Potassium, Blood 5.2 mmol/L (3.5-5.5)
--- NOTE | 2019-02-16 05:47 | NUR ---
END OF SHIFT SUMMARY PT AXO, APPROPRIATE CONVERSATIONS WITH STAFF. PT DESATS INTPO THE LOW 80'S QUICKLY WITH CONVERSATION OR EXERTION. PT HAS HAD SMALL BREAKS FROM BIPAP WITH THE AIRVO 50L 70% BUT HAS REMAINED PREDOMINANTLY ON BIPAP 10/6 55%. PT REMAINS PACED IN THE 70'S BUT DOES HAVE PERIODS WITHOUT PACIONG WITH SR. BASELINE TREMORS PRESENT. PT HAS AMBULATED TO [facility] [place] [facility] VIA TRANSFER WELL THIS SHIFT. LUNGS COARSE IN BASES BUT PT FEELS THAT SHE IS IMPROVING RESPIRATORY ESPOSITO. 22G IV IN L CHEST CONTINUES TO INFUSE WELL WITH ABX AND TKO FLUIDS. PT HAS RESTED OFF AND ON THIS SHIFT. USES CALL LIGHT APPROPRIATELY. BED IN LOWEST POSITION. WILL CONTINUE TO MONITOR PT UNTIL SHIFT CHANGE.
--- NOTE | 2019-02-16 11:20 | NUR ---
vancomycin trough pending will infuse vanco when arrives from pharmacy
[2019-02-16 11:23] LABS: Vancomycin, Trough 19.6 ug/mL (5.0-10.0)
--- NOTE | 2019-02-16 15:20 | NUR ---
Spiritual care visit conducted. Patient is resting in bed but easily awakens to the sound of her name. Patient states that someone was just in her room and she is trying to rest and asks if I could come back tomorrow.
--- NOTE | 2019-02-16 18:42 | NUR ---
SHIFT NOTE PT HAS REMAINED ON ARIVO T/O THE DAY, HAS NOT NEEDED BIPAP AT ALL TODAY. PT DID COMPLAIN OF PAIN TWICE TODAY THAT WAS EASILY RESOLVED WITH OXYCODONE ADMIN. PT DID RECIEVE HER MEDS VVIA APPLESAUCE TODAY. PT REPORTS WORK OF BREATHING EASIER TODAY BUT HAS NOT BEEN ABLE TO BE OFF OF AIRVO. PT EDUCATED THOROUGHLY ABOUT MRSA TO NARES, PLACED INTO ISOLATION. PT OTHERWISE HAS HAD NOT ACUTE CHANGES DURING THIS SHIFT
[2019-02-17 04:11] LABS: BASOPHILS ABSOLUTE AUTO 0.03 K/mm3 (0.00-0.23); BASOPHILS PERCENT AUTO 0 % (0-2); EOSINOPHILS ABSOLUTE AUTO 0.01 K/mm3 (0.00-0.68); EOSINOPHILS PERCENT AUTO 0 % (0-6); Hematocrit 31.7 % (33.0-51.0); Hemoglobin 10.2 g/dL (11.5-16.0); IMMATURE GRAN ABSOLUTE AUTO 0.57 K/mm3 (0.00-0.10); IMMATURE GRAN PERCENT AUTO 4 % (0-1); LYMPHOCYTES PERCENT AUTO 6 % (21-46); MONOCYTES ABSOLUTE AUTO 0.46 K/mm3 (0.16-1.47); MONOCYTES PERCENT AUTO 3 % (4-13); Mean Corpuscular HGB 29.5 pg (26.0-34.0); Mean Corpuscular HGB Conc 32.2 g/dL (31.5-36.5); Mean Corpuscular Volume 92 fL (80-100); NEUTROPHILS ABSOLUTE AUTO 11.83 K/mm3 (1.96-9.15); NEUTROPHILS PERCENT AUTO 86 % (41-73); Platelet Count 248 K/mm3 (150-400); RDW Standard Deviation 47.3 fL (35.1-46.3); Red Blood Cell Count 3.46 M/mm3 (3.80-5.20)
[2019-02-17 04:31] LABS: Albumin, Blood 2.3 g/dL (3.4-5.0); Anion Gap 5 mmol/L (6-16); Blood Urea Nitrogen 41 mg/dL (8-24); Bun/Creatinine Ratio 29.7 (12.0-20.0); CO2, Blood 26 mmol/L (21-32); Calcium, Blood 8.4 mg/dL (8.5-10.1); Chloride, Blood 103 mmol/L (98-108); Creatinine, Blood 1.38 mg/dL (0.40-1.00); Glomerular Filtration Rate 42 (60-); Glucose, Blood 128 mg/dL (70-99); Potassium, Blood 5.6 mmol/L (3.5-5.5); Sodium, Blood 134 mmol/L (136-145)
--- NOTE | 2019-02-17 06:13 | NUR ---
PCU NOC SHIFT SUMMARY PATIENT REMAINS ALERT AND ORIENTED X4 T/O SHIFT. PATIENT SBA TO BEDSIDE COMMODE - TOLERATES TRANSFERS WELL WITH MINIMAL ASSISTANCE. PATIENT REPORTS ONGOING CHRONIC PAIN RELIEVED WITH NARCOTICS PER EMAR. PATIENT ON AIRVO MAJORITY OF SHIFT AND SLEPT APPROX 3 HOURS ON BIPAP. PATIENT HR REMAINS IN SR AND 40% PACED T/O SHIFT. PATIENT ON ROOM AIR AT BASELINE. PATIENT HAS RIGHT BKA - PATIENT TOLERATES LIFESTYLE WELL. PATIENT COOPERATIVE WITH CARE T/O SHIFT. NO ACUTE EVENTS NOTED. CALL LIGHT W/I REACH. WILL CONTINUE TO MONITOR AND GIVE REPORT TO DAYSHIFT RN.
[2019-02-17 12:58] LABS: Albumin, Blood 2.5 g/dL (3.4-5.0); Anion Gap 5 mmol/L (6-16); Blood Urea Nitrogen 41 mg/dL (8-24); Bun/Creatinine Ratio 32.3 (12.0-20.0); CO2, Blood 26 mmol/L (21-32); Calcium, Blood 8.7 mg/dL (8.5-10.1); Chloride, Blood 103 mmol/L (98-108); Creatinine, Blood 1.27 mg/dL (0.40-1.00); Glomerular Filtration Rate 46 (60-); Glucose, Blood 219 mg/dL (70-99); Phosphorus, Blood 2.9 mg/dL (2.5-4.9); Sodium, Blood 134 mmol/L (136-145)
--- NOTE | 2019-02-17 17:31 | NUR ---
NO ACUTE CHANGES NOTED. NO CURRENT COMPLAINTS OF PAIN OR DISCOMFORT NOTED AT THIS TIME. PATIENT CONTINUES ON THE AIRVO WITH O2 SATS IN THE LOW 90'S. NO OTHER ISSUES NOTED AT THIS TIME. WILL CONTINE TO MONITOR FOR CHANGES.
[2019-02-18 03:36] LABS: Hematocrit 32.1 % (33.0-51.0); Hemoglobin 10.3 g/dL (11.5-16.0); Mean Corpuscular HGB 29.8 pg (26.0-34.0); Mean Corpuscular HGB Conc 32.1 g/dL (31.5-36.5); Mean Corpuscular Volume 93 fL (80-100); Platelet Count 266 K/mm3 (150-400); RDW Coefficient Variation 13.9 % (11.7-14.2); RDW Standard Deviation 46.6 fL (35.1-46.3); Red Blood Cell Count 3.46 M/mm3 (3.80-5.20); White Blood Cell Count 15.31 K/mm3 (4.00-11.30)
[2019-02-18 03:50] LABS: Albumin, Blood 2.3 g/dL (3.4-5.0); Anion Gap 5 mmol/L (6-16); Blood Urea Nitrogen 38 mg/dL (8-24); Bun/Creatinine Ratio 25.5 (12.0-20.0); CO2, Blood 27 mmol/L (21-32); Calcium, Blood 8.4 mg/dL (8.5-10.1); Chloride, Blood 104 mmol/L (98-108); Creatinine, Blood 1.49 mg/dL (0.40-1.00); Glomerular Filtration Rate 39 (60-); Glucose, Blood 206 mg/dL (70-99); Phosphorus, Blood 3.8 mg/dL (2.5-4.9); Potassium, Blood 5.8 mmol/L (3.5-5.5); Sodium, Blood 136 mmol/L (136-145)
[2019-02-18 04:01] LABS: BASOPHILS PERCENT MAN 0 % (0-2); EOSINOPHILS PERCENT MAN 0 % (0-6); LYMPHOCYTES ABSOLUTE MAN 1.99 K/mm3 (0.84-5.20); LYMPHOCYTES PERCENT MAN 13 % (21-46); METAMYELOCYTE ABSOLUTE MAN 0.15 K/mm3 (0.00-0.00); METAMYELOCYTE PERCENT MAN 1 % (0-0); MONOCYTES ABSOLUTE MAN 0.45 K/mm3 (0.16-1.47); MONOCYTES PERCENT MAN 3 % (4-13); MYELOCYTE ABSOLUTE MAN 0.45 K/mm3 (0.00-0.00); MYELOCYTE PERCENT MAN 3 % (0-0); NEUTROPHILS ABSOLUTE MAN 12.24 K/mm3 (1.96-9.15); SEG NEUTROPHILS PERCENT MAN 80 % (41-73); TOTAL CELLS COUNTED 100
--- NOTE | 2019-02-18 06:41 | NUR ---
PCU NOC SHIFT SUMMARY PATIENT REMAINS ALERT AND ORIENTED T/O SHIFT. NO ACUTE CHANGES NOTED. PATIENT REPORTS ONGOING CHRONIC PAIN RELIEVED WITH MEDICATIONSPER EMAR. PATIENT REMAINS ON AIRVO T/O SHIFT WITH FIO2 AT 70% RUNNING AT 40 LPM. PATIENT RIGHT BKE IS WNL FOR PATIENT, PATIENT TRANSFERS INDEPENDENTLY TO BEDSIDE COMMODE WELL. PATIENT HAS HAD MULTIPLE SOFT STOOLS THIS SHIFT (HOLD STOOL SOFTNERS AND BOWEL CARE TODAY, PER PATIENT). PATIENT REMAINS 100% PACED IN THE 60'S AT THIS TIME. NO ACUTE CHANGES T/O THE SHIFT. WILL CONTINUE TO MONITOR AND REPORT TO DAYSHIFT RN.
[2019-02-18 11:37] LABS: Vancomycin, Trough 19.9 ug/mL (5.0-10.0)
[2019-02-18 12:31] LABS: Albumin, Blood 2.4 g/dL (3.4-5.0); Anion Gap 8 mmol/L (6-16); Blood Urea Nitrogen 37 mg/dL (8-24); CO2, Blood 25 mmol/L (21-32); Calcium, Blood 8.9 mg/dL (8.5-10.1); Chloride, Blood 100 mmol/L (98-108); Creatinine, Blood 1.37 mg/dL (0.40-1.00); Glomerular Filtration Rate 42 (60-); Glucose, Blood 256 mg/dL (70-99); Phosphorus, Blood 3.5 mg/dL (2.5-4.9); Potassium, Blood 5.1 mmol/L (3.5-5.5); Sodium, Blood 133 mmol/L (136-145)
--- NOTE | 2019-02-18 18:46 | NUR ---
SHIFT SUMMARY. A&OX4, INDEPENDENT TO BSC, PT IS AWARE OF LIMITATIONS. PT CONTINUES WITH AIRVO AND DESATS QUICKLY WHEN NOT. PT WITH CHRONIC PAIN MANAGED WELL WITH CURRENT ORDERS. NO N/V, GOOD MEAL INTAKE. IN TO VISIT INTERMITTELY. DR. KERN ROUNDED THIS AFTERNOON. NO NEW CHANGES OR CONCERNS.
--- NOTE | 2019-02-18 23:46 | NUR ---
RT IN TO SETUP BIPAP. REPORTED NECK PAIN AND PERCOCET 15 MG GIVEN PER EMAR. CBG 279. ZOSYN INFUSING. CALL LIGHT IN REACH. WILL CONTINUE TO MONITOR.
[2019-02-19 03:56] LABS: BASOPHILS ABSOLUTE AUTO 0.03 K/mm3 (0.00-0.23); BASOPHILS PERCENT AUTO 0 % (0-2); EOSINOPHILS ABSOLUTE AUTO 0.09 K/mm3 (0.00-0.68); EOSINOPHILS PERCENT AUTO 1 % (0-6); Hemoglobin 10.8 g/dL (11.5-16.0); IMMATURE GRAN ABSOLUTE AUTO 1.18 K/mm3 (0.00-0.10); IMMATURE GRAN PERCENT AUTO 7 % (0-1); LYMPHOCYTES ABSOLUTE AUTO 0.82 K/mm3 (0.84-5.20); LYMPHOCYTES PERCENT AUTO 5 % (21-46); MONOCYTES ABSOLUTE AUTO 0.37 K/mm3 (0.16-1.47); MONOCYTES PERCENT AUTO 2 % (4-13); Mean Corpuscular HGB Conc 32.7 g/dL (31.5-36.5); Mean Corpuscular Volume 92 fL (80-100); NEUTROPHILS ABSOLUTE AUTO 13.78 K/mm3 (1.96-9.15); NEUTROPHILS PERCENT AUTO 85 % (41-73); Platelet Count 286 K/mm3 (150-400); RDW Coefficient Variation 13.6 % (11.7-14.2); RDW Standard Deviation 46.3 fL (35.1-46.3); White Blood Cell Count 16.27 K/mm3 (4.00-11.30)
[2019-02-19 04:14] LABS: Albumin, Blood 2.3 g/dL (3.4-5.0); Anion Gap 7 mmol/L (6-16); Blood Urea Nitrogen 35 mg/dL (8-24); Bun/Creatinine Ratio 23.8 (12.0-20.0); CO2, Blood 27 mmol/L (21-32); Calcium, Blood 8.5 mg/dL (8.5-10.1); Chloride, Blood 100 mmol/L (98-108); Creatinine, Blood 1.47 mg/dL (0.40-1.00); Glomerular Filtration Rate 39 (60-); Glucose, Blood 224 mg/dL (70-99); Phosphorus, Blood 4.2 mg/dL (2.5-4.9); Potassium, Blood 5.7 mmol/L (3.5-5.5); Sodium, Blood 134 mmol/L (136-145)
[2019-02-19 04:17] LABS: BAND PERCENT MAN 2 % (0-8); BASOPHILS PERCENT MAN 0 % (0-2); EOSINOPHILS PERCENT MAN 0 % (0-6); LYMPHOCYTES ABSOLUTE MAN 0.97 K/mm3 (0.84-5.20); LYMPHOCYTES PERCENT MAN 6 % (21-46); METAMYELOCYTE ABSOLUTE MAN 0.32 K/mm3 (0.00-0.00); METAMYELOCYTE PERCENT MAN 2 % (0-0); MONOCYTES ABSOLUTE MAN 0.16 K/mm3 (0.16-1.47); MONOCYTES PERCENT MAN 1 % (4-13); MYELOCYTE ABSOLUTE MAN 0.32 K/mm3 (0.00-0.00); MYELOCYTE PERCENT MAN 2 % (0-0); NEUTROPHILS ABSOLUTE MAN 14.31 K/mm3 (1.96-9.15); PROMYELOCYTE ABSOLUTE MAN 0.16 K/mm3 (0.00-0.00); PROMYELOCYTE PERCENT MAN 1 % (0-0); SEG NEUTROPHILS PERCENT MAN 86 % (41-73); TOTAL CELLS COUNTED 100
--- NOTE | 2019-02-19 05:29 | NUR ---
SHIFT SUMMARY PATIENT HAD NO ACUTE CHANGES OBSERVED THIS SHIFT. AXOX 3 AND INDEPENDENT TO BSC. RIGHT BKA. AUTHORIZATION SPECIALIST REPORTS A-FIB 76. REMAINS ON AIRVO. REPORTED BACK/NECK PAIN X TWO AND RECEIVED PERCOCET TWO TABS PER PAIN EVENT. DENIES N/V. AIRVO FIO2 AT 70% AND AT 50 LPM. RT IN MULTIPLE TIMES HELPING WITH MASK ADJUSTMENTS AND SETTINGS. PATIENT WATCHING TV ON AND OFF T/O SHIFT. CALL LIGHT IN REACH. BED IN LOWEST POSITION. WILL CONTINUE TO MONITOR UNTIL DAY SHIFT NURSE ASSUMES CARE.
[2019-02-19 13:20] LABS: Albumin, Blood 2.5 g/dL (3.4-5.0); Anion Gap 8 mmol/L (6-16); Blood Urea Nitrogen 36 mg/dL (8-24); Bun/Creatinine Ratio 25.2 (12.0-20.0); CO2, Blood 24 mmol/L (21-32); Calcium, Blood 8.8 mg/dL (8.5-10.1); Chloride, Blood 99 mmol/L (98-108); Creatinine, Blood 1.43 mg/dL (0.40-1.00); Glomerular Filtration Rate 40 (60-); Glucose, Blood 315 mg/dL (70-99); Potassium, Blood 5.9 mmol/L (3.5-5.5); Sodium, Blood 131 mmol/L (136-145); Vancomycin, Trough 20.1 ug/mL (5.0-10.0)
[2019-02-19 13:21] LABS: Phosphorus, Blood 4.4 mg/dL (2.5-4.9)
--- NOTE | 2019-02-19 16:32 | NUR ---
SHIFT SUMMARY PAIN HAS BEEN MANAGED WITH PO PAIN MEDICATION THIS SHIFT. PT IS A SBA WHEN OOB TO THE BSC. SHE HAS REMAINED ALERT AND ORIENTED T/O THE DAY. LUNG SOUNDS ARE CLEAR, DIMINISHED ONLY IN THE BASES. FAMILY WAS PRESENT FOR SUPPORT TODAY. PT REMAINS ON CHE FLOW O2. VSS. WILL MONITOR UNTIL REPORT TO ONCOMING RN.
--- NOTE | 2019-02-20 02:54 | NUR ---
ASSUMED CARE AT 1900/ PAIN REPORTED PER SCHEDULED TIME FRAME. USUAL CHRONIC PAIN AND LOWEST REPORT OF 4. AND OFF TO SLEEP FOR MUCH OF THIS NOC. BLOOD SUGAR 289 AND REQUESTS CHEESE, AND HAS RECENTLY HAD YOGURT. NO S/S COVERAGE FOR HS. AIRVO ON AT 45 L AT CHANGE OF SHIFT,. AND 52%.. INCREASED TO 55% AT 5 AND AT 2215. INCREASED TO 50 L. FOR MID SAT 90'S. BY MID NOC BIPAP SET UP FOR 30/11 , 30% FIO2. DEPENDENT EDEMA AT ARMS AND 3+ LOWER EXT/ LT LEG. OOB TO BSC W/ VERY MINIMAL ASSIST/
[2019-02-20 03:38] LABS: BASOPHILS ABSOLUTE AUTO 0.05 K/mm3 (0.00-0.23); BASOPHILS PERCENT AUTO 0 % (0-2); EOSINOPHILS ABSOLUTE AUTO 0.04 K/mm3 (0.00-0.68); EOSINOPHILS PERCENT AUTO 0 % (0-6); Hemoglobin 9.9 g/dL (11.5-16.0); IMMATURE GRAN PERCENT AUTO 7 % (0-1); LYMPHOCYTES ABSOLUTE AUTO 0.79 K/mm3 (0.84-5.20); LYMPHOCYTES PERCENT AUTO 5 % (21-46); MONOCYTES ABSOLUTE AUTO 0.37 K/mm3 (0.16-1.47); MONOCYTES PERCENT AUTO 2 % (4-13); Mean Corpuscular HGB 29.3 pg (26.0-34.0); Mean Corpuscular HGB Conc 31.9 g/dL (31.5-36.5); Mean Corpuscular Volume 92 fL (80-100); Mean Platelet Volume 10.9 fL (9.1-12.4); NEUTROPHILS PERCENT AUTO 86 % (41-73); Platelet Count 306 K/mm3 (150-400); RDW Coefficient Variation 13.7 % (11.7-14.2); RDW Standard Deviation 46.6 fL (35.1-46.3); Red Blood Cell Count 3.38 M/mm3 (3.80-5.20); White Blood Cell Count 16.45 K/mm3 (4.00-11.30)
[2019-02-20 03:52] LABS: Albumin, Blood 2.2 g/dL (3.4-5.0); Anion Gap 5 mmol/L (6-16); Blood Urea Nitrogen 34 mg/dL (8-24); Bun/Creatinine Ratio 22.4 (12.0-20.0); CO2, Blood 30 mmol/L (21-32); Calcium, Blood 8.4 mg/dL (8.5-10.1); Chloride, Blood 99 mmol/L (98-108); Creatinine, Blood 1.52 mg/dL (0.40-1.00); Glomerular Filtration Rate 38 (60-); Glucose, Blood 210 mg/dL (70-99); Phosphorus, Blood 4.3 mg/dL (2.5-4.9); Potassium, Blood 5.9 mmol/L (3.5-5.5); Sodium, Blood 134 mmol/L (136-145)
[2019-02-20 03:55] LABS: BAND PERCENT MAN 2 % (0-8); BASOPHILS PERCENT MAN 0 % (0-2); EOSINOPHILS PERCENT MAN 0 % (0-6); LYMPHOCYTES ABSOLUTE MAN 0.82 K/mm3 (0.84-5.20); LYMPHOCYTES PERCENT MAN 5 % (21-46); METAMYELOCYTE ABSOLUTE MAN 0.32 K/mm3 (0.00-0.00); METAMYELOCYTE PERCENT MAN 2 % (0-0); MONOCYTES ABSOLUTE MAN 0.49 K/mm3 (0.16-1.47); MONOCYTES PERCENT MAN 3 % (4-13); MYELOCYTE ABSOLUTE MAN 0.16 K/mm3 (0.00-0.00); MYELOCYTE PERCENT MAN 1 % (0-0); NEUTROPHILS ABSOLUTE MAN 14.64 K/mm3 (1.96-9.15); SEG NEUTROPHILS PERCENT MAN 87 % (41-73); TOTAL CELLS COUNTED 100
--- NOTE | 2019-02-20 05:28 | NUR ---
SHIFT SUMMARY. NO CHANGE IN ABOVE.REMOVED BIPAP AT 0330 AND AIRVO SETTING 50 L AND 45% THEN 35% . PAIN MED PER USUAL AND COMFORTABLE RELIEF / OOB AND STEADY GAIT. RT JUAN RAMON
--- NOTE | 2019-02-20 14:08 | NUR ---
PT OFF OF AIRVO FOR TRIAL WITH OXYMIZER AT 8L
--- NOTE | 2019-02-20 14:14 | NUR ---
PT TITRATED TO 6L VIA OXYMIZER, RT IN ROOM STS TO REASSESS IN 1 HR.
--- NOTE | 2019-02-20 19:07 | NUR ---
SHIFT NOTE PT HAS BEEN TITRATED TO 4.5L O2 VIA NASAL CANNULA WHICH IS BEING TOLERATED WELL. PT HAS COMPLAINED OF PAIN TWICE TODAY WHICH WAS TREATED WELL WITH PERCOCET ADMIN. PT REPORTS WORK OF BREATHING HAS IMPROVED. PT A/O X4, ASNWERING QUESTIONS APPROPRAITELY.
--- NOTE | 2019-02-21 02:24 | NUR ---
ASSUMED CARE AT 1900. BASELINE PAIN AND MED GIVEN UPON REQUEST, WHEN DUE. 4.5 L REMAIN ADEQUATE SAT 88-93 DEPENDING ON ANY SLIGHT EXERTION. MID 80'S WHEN SELF ASSIST TO BSC. RECOVERS FAIRLY QUICKLY. REFUSED BIPAP TONIGHT. LG HS SNACK .
--- NOTE | 2019-02-21 05:00 | NUR ---
DR LESTER IN FOR CONSULT. VERBAL ORDER FOR BLADDER SCAN. NOTED , PT VOIDED 1 HR AGO. AND NOW BLADDER SCAN REVEALS 190 ML. NO ACUTE CHANGES STATED ABOVE. PAIN MED TO REACH BASE LINE X2. 4.5 L ALL NOC WNL SAT UNLESS OOB.
[2019-02-21 05:22] LABS: Hematocrit 29.3 % (33.0-51.0); Hemoglobin 9.5 g/dL (11.5-16.0); Mean Corpuscular HGB 29.4 pg (26.0-34.0); Mean Corpuscular HGB Conc 32.4 g/dL (31.5-36.5); Mean Corpuscular Volume 91 fL (80-100); Mean Platelet Volume 10.4 fL (9.1-12.4); Platelet Count 249 K/mm3 (150-400); RDW Coefficient Variation 13.8 % (11.7-14.2); RDW Standard Deviation 45.9 fL (35.1-46.3); Red Blood Cell Count 3.23 M/mm3 (3.80-5.20); White Blood Cell Count 13.59 K/mm3 (4.00-11.30)
[2019-02-21 05:42] LABS: BASOPHILS PERCENT MAN 0 % (0-2); EOSINOPHILS PERCENT MAN 0 % (0-6); LYMPHOCYTES ABSOLUTE MAN 0.81 K/mm3 (0.84-5.20); LYMPHOCYTES PERCENT MAN 6 % (21-46); METAMYELOCYTE ABSOLUTE MAN 0.13 K/mm3 (0.00-0.00); METAMYELOCYTE PERCENT MAN 1 % (0-0); MONOCYTES ABSOLUTE MAN 0.95 K/mm3 (0.16-1.47); MONOCYTES PERCENT MAN 7 % (4-13); MYELOCYTE ABSOLUTE MAN 0.13 K/mm3 (0.00-0.00); MYELOCYTE PERCENT MAN 1 % (0-0); NEUTROPHILS ABSOLUTE MAN 11.55 K/mm3 (1.96-9.15); SEG NEUTROPHILS PERCENT MAN 85 % (41-73); TOTAL CELLS COUNTED 100
[2019-02-21 05:52] LABS: Albumin, Blood 2.2 g/dL (3.4-5.0); Anion Gap 6 mmol/L (6-16); Blood Urea Nitrogen 36 mg/dL (8-24); Bun/Creatinine Ratio 20.2 (12.0-20.0); CO2, Blood 30 mmol/L (21-32); Calcium, Blood 8.5 mg/dL (8.5-10.1); Chloride, Blood 97 mmol/L (98-108); Creatinine, Blood 1.78 mg/dL (0.40-1.00); Glomerular Filtration Rate 31 (60-); Glucose, Blood 304 mg/dL (70-99); Phosphorus, Blood 4.4 mg/dL (2.5-4.9); Sodium, Blood 133 mmol/L (136-145)
--- NOTE | 2019-02-21 17:39 | NUR ---
SHIFT SUMMARY PT A&Ox4. CALM AND COOPERATIVE WITH CARE. PT AWAKE RESTING IN BED DURING SHIFT. IND TO BSC. WHEN TRANSFERING SPO2 DESATS TO 80'S RECOVERS QUICKLY. PT STARTED ON 4.5L O2 VIA NC, TITRATED TO 3L O2 VIA NC SPO2 89-95%. SOB WITH EXERTION. PT REPORTS NECK AND BACK PAIN, MEDICATED x2 WITH POSITIVE RESULTS. PT DENIES NAUSEA, HAS GOOD APPETITE. PT RECEIVED LAST DOSE ON ANTIBIOTICS THIS AM. PT RECEIVING IV LASIX, PT REPORTS SWELLING GETTING BETTER. VSS. NO OTHER ACUTE CHANGES NOTED DURING SHIFT. WILL CONTINUE TO MONITOR UNTIL REPORT GIVEN TO ONCOMING RN.
--- NOTE | 2019-02-21 21:47 | NUR ---
ASSUMED CARE OF PATIENT AT APPROXIMATELY 1915 FROM ISRA Alanis RN. PATIENT ALERT AND ORIENTED X4; SLOW TO RESPOND AT TIMES. REPORTED TO BED INDEPENDENT TO BEDSIDE COMMODE; RIGHT BKA; USES PROSTHETIC AT TIMES. PATIENT REPORTS CHRONIC PAIN TO NECK AND SHOULDERS; MEDICATED PER EMAR. PATIENT DENIES DIZZINESS AND NAUSEA. 100% PACED ON TELE; OXYGEN SATURATION ABOVE 90% ON 3LPM VIA NC. PATIENT REPORTS FEELING BETTER; REPORTS SHE WALKED TODAY AND HAD A BATH. PG TKO. PATIENT HAS HEALTHY APPETITE; CBG TRENDING UP REPORTEDLY. PATIENT CURRENLTY RESTING IN BED; CALL LIGHT IN REACH; BED IN LOWEST POSISTION; WILL CONTINUE TO MONITOR AND ASSESS UNTIL END OF SHIFT.
[2019-02-22 04:50] LABS: BASOPHILS ABSOLUTE AUTO 0.01 K/mm3 (0.00-0.23); BASOPHILS PERCENT AUTO 0 % (0-2); EOSINOPHILS PERCENT AUTO 1 % (0-6); Hematocrit 29.6 % (33.0-51.0); Hemoglobin 9.5 g/dL (11.5-16.0); IMMATURE GRAN ABSOLUTE AUTO 0.57 K/mm3 (0.00-0.10); IMMATURE GRAN PERCENT AUTO 4 % (0-1); LYMPHOCYTES ABSOLUTE AUTO 0.94 K/mm3 (0.84-5.20); LYMPHOCYTES PERCENT AUTO 7 % (21-46); MONOCYTES ABSOLUTE AUTO 0.81 K/mm3 (0.16-1.47); MONOCYTES PERCENT AUTO 6 % (4-13); Mean Corpuscular HGB 29.6 pg (26.0-34.0); Mean Corpuscular HGB Conc 32.1 g/dL (31.5-36.5); Mean Corpuscular Volume 92 fL (80-100); Mean Platelet Volume 10.6 fL (9.1-12.4); NEUTROPHILS ABSOLUTE AUTO 11.89 K/mm3 (1.96-9.15); NEUTROPHILS PERCENT AUTO 83 % (41-73); Platelet Count 244 K/mm3 (150-400); RDW Coefficient Variation 13.6 % (11.7-14.2); RDW Standard Deviation 45.9 fL (35.1-46.3); Red Blood Cell Count 3.21 M/mm3 (3.80-5.20); White Blood Cell Count 14.32 K/mm3 (4.00-11.30)
[2019-02-22 05:11] LABS: Albumin, Blood 2.4 g/dL (3.4-5.0); Anion Gap 5 mmol/L (6-16); Blood Urea Nitrogen 34 mg/dL (8-24); Bun/Creatinine Ratio 21.4 (12.0-20.0); CO2, Blood 32 mmol/L (21-32); Calcium, Blood 8.7 mg/dL (8.5-10.1); Chloride, Blood 97 mmol/L (98-108); Creatinine, Blood 1.59 mg/dL (0.40-1.00); Glomerular Filtration Rate 36 (60-); Glucose, Blood 274 mg/dL (70-99); Magnesium, Blood 1.7 mg/dL (1.6-2.4); Potassium, Blood 5.1 mmol/L (3.5-5.5); Sodium, Blood 134 mmol/L (136-145)
--- NOTE | 2019-02-22 06:06 | NUR ---
NO ACUTE CHANGES TO REPORT. PATIENT ON NC ALL NIGHT. VSS. PATIENT SLEPT ABOUT SIX HOURS LAST NIGHT. WILL CONTINUE TO MONITOR AND ASSESS UNTIL END OF SHIFT.
--- NOTE | 2019-02-22 15:01 | NUR ---
TRANSFER NOTE REPORT GIVEN TO JAKE HARRISON ON MEDICAL. PT A&Ox4. CALM AND COOPERTATIVE WITH CARE. PT REPORTS PAIN IN NECK, SHOULDER AND LOWER BACK, MEDICATED x2 WITH PERCOCET AND LIDOCAINE PATCH IN PLACE. PT SOB WITH EXERTION, PT ON 3L O2 VIA NC, ATTEMPTED TO TITRATE TO 2.5L O2 PT SITTING 86-89%. 4L O2 VIA NC WITH ACTIVITY. PT IND TO BS, PIVOT TRANSFERS. PT 1 PERSON ASSIST IN ROOM. PT DENIES NASUEA, GOOD APPETITE, REQUESTING ADDITIONAL PORTIONS, PT EDUCATED ON DIABETES AND FOOD CHOICES, ADDITIONAL PROTEIN AND VEGGIE PORTIONS PROVIDED. PT RECEIVED IV STEROIDS AND TRANSITIONED TO PO LASIX THIS AM. VSS. NO OTHER ACUTE CHANGES NOTED. PT LEFT ROOM VIA BED AT 1505.
--- NOTE | 2019-02-22 19:32 | NUR ---
PT ARRIVED TO THE MEDICAL FLOOR FROM THE PCU, A/OX3, PLEASANT AND COOPERATIVE, THE PT IS IND TO THE BSC, THE PT HAS A R BKA, THE PT APPEARS TO BE BREATHING EASILY ON 3L/MIN AT REST, THE PT IS ON A CONTINUOS BIOX, SATS > 90%, THE PT WAS MEDICATED FOR PAIN X 1, THE PT WAS ORIENTED TO THE ROOM LAYOUT AND CALL SYSTEM, CALL LIGHT IN REACH
[2019-02-23 05:36] LABS: BASOPHILS ABSOLUTE AUTO 0.01 K/mm3 (0.00-0.23); BASOPHILS PERCENT AUTO 0 % (0-2); EOSINOPHILS ABSOLUTE AUTO 0.07 K/mm3 (0.00-0.68); EOSINOPHILS PERCENT AUTO 1 % (0-6); Hemoglobin 9.3 g/dL (11.5-16.0); IMMATURE GRAN PERCENT AUTO 5 % (0-1); LYMPHOCYTES ABSOLUTE AUTO 1.17 K/mm3 (0.84-5.20); LYMPHOCYTES PERCENT AUTO 11 % (21-46); MONOCYTES ABSOLUTE AUTO 0.59 K/mm3 (0.16-1.47); MONOCYTES PERCENT AUTO 5 % (4-13); Mean Corpuscular HGB 29.2 pg (26.0-34.0); Mean Corpuscular HGB Conc 32.1 g/dL (31.5-36.5); Mean Corpuscular Volume 91 fL (80-100); Mean Platelet Volume 10.8 fL (9.1-12.4); NEUTROPHILS ABSOLUTE AUTO 8.59 K/mm3 (1.96-9.15); NEUTROPHILS PERCENT AUTO 79 % (41-73); Platelet Count 246 K/mm3 (150-400); RDW Coefficient Variation 13.7 % (11.7-14.2); RDW Standard Deviation 45.2 fL (35.1-46.3); Red Blood Cell Count 3.19 M/mm3 (3.80-5.20); White Blood Cell Count 10.93 K/mm3 (4.00-11.30)
[2019-02-23 05:54] LABS: Percent Saturation 26.3 % (15.0-50.0)
[2019-02-23 05:55] LABS: Alanine Aminotransfer (ALT/SGP 13 U/L (12-78); Albumin, Blood 2.5 g/dL (3.4-5.0); Albumin/Globulin Ratio 0.7 (0.8-1.8); Alk Phos 62 U/L (50-136); Anion Gap 6 mmol/L (6-16); Aspartate Aminotrans (AST/SGOT 28 U/L (12-37); Bilirubin, Direct <0.1 mg/dL (0.0-0.3); Bilirubin, Indirect Unable to Calculate mg/dL (0.1-0.7); Bilirubin, Total 0.2 mg/dL (0.1-1.0); Blood Urea Nitrogen 34 mg/dL (8-24); Bun/Creatinine Ratio 23.6 (12.0-20.0); CO2, Blood 32 mmol/L (21-32); Chloride, Blood 95 mmol/L (98-108); Creatinine, Blood 1.44 mg/dL (0.40-1.00); Globulin, Blood 3.6 g/dL (2.2-4.0); Glomerular Filtration Rate 40 (60-); Glucose, Blood 304 mg/dL (70-99); Magnesium, Blood 1.9 mg/dL (1.6-2.4); Phosphorus, Blood 4.2 mg/dL (2.5-4.9); Potassium, Blood 5.1 mmol/L (3.5-5.5); Sodium, Blood 133 mmol/L (136-145); Total Protein, Blood 6.1 g/dL (6.4-8.2)
--- NOTE | 2019-02-23 06:17 | NUR ---
SHIFT SUMMARY: PATIENT IS A&OX4, CONTINUES TO REQUIRE 4L NC TO MAINTAIN SATS LOW TO MID 90'S. SOB WITH ACTIVITY, OCCASSIONAL NON PRO COUGH OBSERVED, LUNGS ARE COUSE AT BASES. PATIENT REPORTS CHRONIC BACK AND NECK PAIN, PRN PERCOCET IS EFFECTIVE FOR PAIN. BLOOD GLUCOSE WAS 317 AT HS, 25 UNITS OF LANTUS WERE GIVEN.
--- NOTE | 2019-02-23 15:48 | NUR ---
BRADLEY Leal CALLED TO SAY PT. HURT HER WRIST WHEN GETTING BACK INTO BED AND PT. WANTED TO KNOW IF IT WAS TIME FOR HER PAIN MEDS, UPON ARRIVING TO PT'S ROOM THEY WERE SOUND ASLEEP.
--- NOTE | 2019-02-23 18:50 | NUR ---
PT. SITTING IN BED SLEEPING AFTER DINNER. XRAY DID NOT SHOW ANY DESCERNABLE FRACTURE IN WRIST. PT. ANXIOUS TO GO HOME. ICE PACK ON LEFT WRIST. NO OTHER NOTEABLE CHANGES THIS SHIFT.
[2019-02-24 06:05] LABS: Hematocrit 28.6 % (33.0-51.0); Hemoglobin 9.3 g/dL (11.5-16.0)
[2019-02-24 06:18] LABS: Albumin, Blood 2.6 g/dL (3.4-5.0); Anion Gap 5 mmol/L (6-16); Blood Urea Nitrogen 39 mg/dL (8-24); Bun/Creatinine Ratio 20.5 (12.0-20.0); CO2, Blood 32 mmol/L (21-32); Calcium, Blood 8.6 mg/dL (8.5-10.1); Chloride, Blood 91 mmol/L (98-108); Glomerular Filtration Rate 29 (60-); Glucose, Blood 497 mg/dL (70-99); Magnesium, Blood 1.9 mg/dL (1.6-2.4); Phosphorus, Blood 4.7 mg/dL (2.5-4.9); Potassium, Blood 5.9 mmol/L (3.5-5.5); Sodium, Blood 128 mmol/L (136-145)
--- NOTE | 2019-02-24 06:44 | NUR ---
SHIFT SUMMARY: PATIENT REPORTS PAIN IN LEFT WRIST 7-11/26 THIS SHIFT. WRIST IS RED AND SWOLLEN. PRN HYDROCODONE X 2 AND ZANAFLEX X1 AND ICE ARE EFFECTIVE FOR PAIN. BLOOD GLUCOSE WAS 181 AT HS, 25 UNITS OF LANTUS WERE GIVEN PER MAR. BLOOD GLUCOSE ON AM LABS WAS 497, 8 UNITS OF LANTUS IS GIVEN PER JUN. PATIENT DID HAVE A SNACK OF CHEESE DURING THE NIGHT.
[2019-02-24 08:20] LABS: Glucose, Blood 573 mg/dL (70-99)
[2019-02-25 06:28] LABS: Hematocrit 28.6 % (33.0-51.0); Hemoglobin 9.2 g/dL (11.5-16.0)
[2019-02-25 07:15] LABS: Albumin, Blood 2.7 g/dL (3.4-5.0); Anion Gap 6 mmol/L (6-16); Blood Urea Nitrogen 50 mg/dL (8-24); Bun/Creatinine Ratio 25.5 (12.0-20.0); CO2, Blood 31 mmol/L (21-32); Calcium, Blood 8.6 mg/dL (8.5-10.1); Chloride, Blood 88 mmol/L (98-108); Creatinine, Blood 1.96 mg/dL (0.40-1.00); Glomerular Filtration Rate 28 (60-); Glucose, Blood 569 mg/dL (70-99); Phosphorus, Blood 5.1 mg/dL (2.5-4.9); Potassium, Blood 6.4 mmol/L (3.5-5.5); Sodium, Blood 125 mmol/L (136-145)
--- NOTE | 2019-02-25 07:39 | NUR ---
PT continues to require 4 l nc or 4 l bled into bipap to keep sats greater than 90%. Using continous bioxx. Pacemaker 100% vent paced. Pt has chronic pain on percocet 7.5 mg two Q 4 hour prn. Uses approx every 4.5 hours. She is in contact isolation for 02/21/19 MRSA positive in sputum. Her BG was 565 this 0630 AM and crital high potassium called to floor at shift change 6.4. Elba Russo to contact provider.
[2019-02-25 08:33] LABS: Glucose, Blood 600 mg/dL (70-99)
[2019-02-25 13:06] LABS: Glucose, Blood 614 mg/dL (70-99)
--- NOTE | 2019-02-25 13:55 | NUR ---
SHE HAS HAD CBG'S OVER 500 X2 TODAY THAT THE LAB HAS THEN RESULTED AT 600 THEN LATER 614. NOTIFIED BOTH TIMES. SHE AND WERE ALSO BOTH NOTIFIED OF THE POTASSIUM OF 6.4. PATIENT IS WITHOUT CP OR ARRYTHMIA. SHE ONLY ATE PEACHES FOR BREAKFAST BUT ATE 100% OF HER LUNCH. SHE DRANK HER VELTASSA WELL AND HAS HAD EXTRA INSULIN DOSES. PVR BLADDER SCAN WAS CALLED TO ALSO. HE WANTS ANOTHER THIS AFTERNOON. SHE IS DIURISING WELL AFTER IV BUMEX. TELE IS V-PACED. HER R NECK AND SHOULDER GIVE HER MOST OF HER PAIN. THE PERCOCET DIDN'T HELP HER THIS MORNING. SHE WAS VERY SAD AND FRUSTRATED THIS MORNING ABOUT NO GETTING BETTER AND HER WAS ANGRY. HE STAYED FOR ABOUT AN HOUR. HE BROUGHT IN SUGAR FREE CANDIES FOR HER. SHE HAS BEEN ON A FLUID RESTRICTION SINCE BREAKFAST TIME. ISOLATION WAS CHANGED FROM CONTACT TO DROPLET EARLY THIS MORNING WHEN MRSA SPUTUM WAS NOTED. I CALLED AND LEFT A MSG ABOUT THE MRSA SPUTUM AND LATER AFTER NOT RECEIVING ANY ORDERS REGARDING THIS I TOLS HER WHEN SHE WAS PASSING BY. AWAITING ORDERS. WILL CALL 2PM BLOOD DRAW RESULTS TO WHEN RESULTED.
[2019-02-25 14:36] LABS: Potassium, Blood 5.6 mmol/L (3.5-5.5)
[2019-02-25 18:41] LABS: Glucose, Blood 744 mg/dL (70-99)
--- NOTE | 2019-02-25 18:58 | NUR ---
MULTIPLE CALLS TO MD'S TODAY REGARDING CRITICAL LABS. AGAIN NOTIFIED OF CRITICAL GLUCOSE. TREVON NOTIFIED OF LAST NA AND GLUC. HAS AGREED TO PUT IN AN ORDER FOR TRANSFER TO ICU FOR AN INSULIN DRIP. 10 UNITS REGULAR INSULIN GIVEN IV. DIURISIS GOOD. SHE WILL STILL BE ON DAILY IV BUMEX.
--- NOTE | 2019-02-25 19:47 | NUR ---
FINISHED REPORT. RECEIVED CALL FROM ICU WANTING REPORT ON THE PATIENT. GAVE REPORT TO [place] FROM NOTES. CHARGE NURSES ASSISTED WITH TRANSFER TO ICU 8 AT THIS TIME.
[2019-02-25 20:50] LABS: Glucose, Blood 605 mg/dL (70-99)
--- NOTE | 2019-02-25 21:48 | NUR ---
Transfer/[place] of Care: Patient arrived to unit at 1945hr from medical floor. Arrived via stretcher, accompanied by medical floor nurses. Transferred to ICU bed without difficulty. Patient alert/oriented x4, denies dyspnea/SOB. VSS, O2-96-98% on 4L/NC. C/o pain (chronic) to rt shoulder/neck, effectively managed with prn Percocet, not requiring dose upon arrival. Upon patient's arrival, there were no transfer orders or orders for IV insulin in place. Medical floor nurse reported that Dr. Martinez was supposed to place these orders, and the reason for transfer to ICU was to start insulin gtt. Call placed to Dr. Quiñones, received orders for transfer to ICU, and for insulin gtt. Blood glucose upon arrival to unit-605 (down from 745), insulin gtt started at 4u/hr. Call then placed to Dr. Martino r/t IV fluids (no order). Received order per Dr. Martino for NS at 50l/hr. Power-glide to ANALI patent and intact. New peripheral IV placed to right forearm. Patient stand-pivot to bedside commode with stand-by assist without difficulty, voided 1,000ml clear yellow urine after arrival. Call light in reach, makes needs known. Appears calm and comfortable at this time. Will continue to monitor for pain, safety, comfort.
[2019-02-25 23:36] LABS: Glucose, Blood 516 mg/dL (70-99)
[2019-02-26 00:50] LABS: Glucose, Blood 550 mg/dL (70-99)
[2019-02-26 04:54] LABS: BASOPHILS ABSOLUTE AUTO 0.02 K/mm3 (0.00-0.23); BASOPHILS PERCENT AUTO 0 % (0-2); EOSINOPHILS PERCENT AUTO 0 % (0-6); Hematocrit 30.9 % (33.0-51.0); IMMATURE GRAN ABSOLUTE AUTO 0.49 K/mm3 (0.00-0.10); IMMATURE GRAN PERCENT AUTO 2 % (0-1); LYMPHOCYTES ABSOLUTE AUTO 0.77 K/mm3 (0.84-5.20); LYMPHOCYTES PERCENT AUTO 4 % (21-46); MONOCYTES ABSOLUTE AUTO 0.94 K/mm3 (0.16-1.47); MONOCYTES PERCENT AUTO 4 % (4-13); Mean Corpuscular HGB 29.4 pg (26.0-34.0); Mean Corpuscular HGB Conc 32.4 g/dL (31.5-36.5); Mean Corpuscular Volume 91 fL (80-100); Mean Platelet Volume 10.7 fL (9.1-12.4); NEUTROPHILS ABSOLUTE AUTO 19.99 K/mm3 (1.96-9.15); NEUTROPHILS PERCENT AUTO 90 % (41-73); Platelet Count 318 K/mm3 (150-400); RDW Coefficient Variation 13.8 % (11.7-14.2); RDW Standard Deviation 45.4 fL (35.1-46.3); White Blood Cell Count 22.21 K/mm3 (4.00-11.30)
[2019-02-26 05:22] LABS: Magnesium, Blood 2.1 mg/dL (1.6-2.4)
[2019-02-26 05:34] LABS: Albumin, Blood 2.9 g/dL (3.4-5.0); Albumin/Globulin Ratio 0.8 (0.8-1.8); Bilirubin, Total 0.3 mg/dL (0.1-1.0); Bun/Creatinine Ratio 28.4 (12.0-20.0); Calcium, Blood 9.5 mg/dL (8.5-10.1); Creatinine, Blood 2.08 mg/dL (0.40-1.00); Globulin, Blood 3.6 g/dL (2.2-4.0); Phosphorus, Blood 4.4 mg/dL (2.5-4.9); Potassium, Blood 4.6 mmol/L (3.5-5.5); Total Protein, Blood 6.5 g/dL (6.4-8.2)
[2019-02-26 07:14] LABS: PCO2 Arterial 44.1 mmHg (35-45); PO2 Arterial 79.9 mmHg (80-100); pH Blood Arterial 7.44 (7.35-7.45)
--- NOTE | 2019-02-26 07:25 | NUR ---
Shift Summary: Patient slept on/off throughout remainder of shift. Insulin gtt titrated down from 4u/hr to 2u/hr, then placed on stand-by at approx 0430 hr, last x2 blood glucose were 183, and 196. Patient required increasing oxygen demands through NC throughout remainder of shift. O2 increased from 4L/NC to 7-8L/NC, patient then placed on M-series BiPAP with 9L bleed in. O2% remained 85-92%, and patient had no c/o dyspnea/SOB. Lung sounds also increased (more prominent) coarse rhonchi throughout. Systolic BP decreased to 70's-90's. Call placed to Dr. Cabello, received order for chest x-ray, ABG, and for 250ml NS bolus, but to confirm fluids with Dr. Martino. Call then placed to Dr. Martino, updated with most recent vitals, labs and change in patient's status. Dr. Martino instructed to call him with results of ABG. RT contacted, and patient placed on V-60 BiPAP 12/8/60%, O2% increased to 92-94%, and patient continues to deny dyspnea/SOB. Report given to day shift RN. ABG being obtained during shift change, X-ray tech then contacted to obtain chest x-ray.
--- NOTE | 2019-02-26 07:28 | NUR ---
LABS CALLED INTO DR LESTER; XENA HEARD
--- NOTE | 2019-02-26 07:41 | NUR ---
PT HYPOTENSIVE AWAKE ON BIPAP 14/8, 55% FIO2. ABG LOOKS GOOD. PT STATES SHE FEELS "GOOD". BP 76/[address] STOVER CALLED AND GIVEN UPDATE. 1LNS BOLUS ORDERED. XRAY TAKEN
[2019-02-26 10:29] LABS: Source, Urine Catheter
[2019-02-26 10:35] LABS: Bilirubin, Urine Neg (Neg); Blood, Urine Neg (Neg); Glucose Qualitative, Urine 3+ (Neg); Ketones, Urine Neg (Neg); Leukocyte Esterase, Urine Neg (Neg); Nitrite, Urine Neg (Neg); Protein, Urine Neg (Neg); Urobilinogen, Urine NORM (Normal)
[2019-02-26 10:36] LABS: Appearance, Urine Clear (Clear); Color, Urine Pale Yellow (P-Yellow)
--- NOTE | 2019-02-26 15:06 | NUR ---
DR STOVER IN TO SEE PT AROUND 0800 THIS AM. PT GIVEN 2L NS BOLUS BACK TO BACK. PT DID RESPOND TO FLUIDS INTITIALLY BUT BP CONT TO TREND DOWNWARD. 100MG SOLU-CORTEF IV GIVEN THIS AM. PICC PLACED AT 1000 FOR POSSIBLE NEED OF PRESSORS. LEVOPHED STARTED AT 1230; LOW DOSE AT 2MCG. PT TOLERATING BIPAP WELL. PT GIVEN SHORT BREAK ON AIRVO AT 55% FIO2 AND 50L FLOW. SATS DROPPED INTO LOW 80'S AFTER ABOUT 5MIN BREAK. BIPAP RETURNED. PRIOR TO PICC LINE PLACEMENT, CONTRERAS CATH PLACED W TEMP PROBE 2ND TO URINARY RETENTION. SAMPLE SENT TO LAB. TMAX TODAY 101.3; TYLENOL GIVEN. AM MEDS INITIALLY HELD UNTIL PT STABLE. SOME PO MEDS GIVEN W SIP OF WATER AROUND 1145 DURING BREAK OFF BIPAP (OKAY TO GIVE MEDS W SMALL SIPS PER DR STOVER). LACTIC ACID INITIALLY ELEVATED AT 2.7, REFLEX LACTIC 1.5. AFTER LEVOPHED STARTED, FENT 25MCG GIVEN FOR GENERALIZED PAIN. PT SLEEPING NOW. VITALS STABLE.
--- NOTE | 2019-02-26 17:25 | NUR ---
LEVOPHED DECREASED FROM 2MCG TO 1MCG. ATTEMPTED TO TURN LEVOPHED OFF, BUT MAPS OFF LEVOPHED WERE IN THE LOW 50'S. FIO2 IS DOWN TO 40%. PT HAS BEEN SLEEPING FOR THE PAST 4HRS RESTFULLY ON THE BIPAP. NS AT 50CC/HR.
--- NOTE | 2019-02-26 20:39 | NUR ---
ASSUMPTION OF CARE REPORT RECEIVED FROM ARUNAHIHAIM RN. PT SLEEPING BUT ROUSED TO VERBAL STIMULI. ALERT AND ORIENTED. COMPLAINS OF PAIN TO NECK, SHOULDER, AND UPPER RIGHT ARM. FENTANYL GIVEN WITH LITTLE EFFECT, PERCOCET THEN GIVEN. PT ON BIPAP AT 14/8/40%. PT APPEARS CALM AND COMFORTABLE. DENIES SHORTNESS OF BREATH. O2 95-96%. PT PLACED ON AIRVO (50L/50%) FOR PO PILL ADMIN. TOLERATING BREAK FROM MASK WITHOUT DIFFICULTY. PICC IS PATENT AND INTACT. CONTRERAS PATENT AND INTACT. CALL LIGHT WITHIN REACH. SIDE RAILS UP. WILL CONTINUE TO MONITOR PATIENT FOR PAIN AND COMFORT. PINEDA SAINI
[2019-02-27 03:35] LABS: BASOPHILS ABSOLUTE AUTO 0.01 K/mm3 (0.00-0.23); BASOPHILS PERCENT AUTO 0 % (0-2); EOSINOPHILS PERCENT AUTO 0 % (0-6); Hematocrit 25.3 % (33.0-51.0); Hemoglobin 8.4 g/dL (11.5-16.0); IMMATURE GRAN ABSOLUTE AUTO 0.28 K/mm3 (0.00-0.10); IMMATURE GRAN PERCENT AUTO 1 % (0-1); LYMPHOCYTES PERCENT AUTO 2 % (21-46); MONOCYTES ABSOLUTE AUTO 0.43 K/mm3 (0.16-1.47); MONOCYTES PERCENT AUTO 2 % (4-13); Mean Corpuscular HGB 30.9 pg (26.0-34.0); Mean Corpuscular HGB Conc 33.2 g/dL (31.5-36.5); Mean Corpuscular Volume 93 fL (80-100); Mean Platelet Volume 10.9 fL (9.1-12.4); NEUTROPHILS PERCENT AUTO 94 % (41-73); Platelet Count 225 K/mm3 (150-400); RDW Coefficient Variation 14.3 % (11.7-14.2); RDW Standard Deviation 48.4 fL (35.1-46.3); Red Blood Cell Count 2.72 M/mm3 (3.80-5.20); White Blood Cell Count 20.62 K/mm3 (4.00-11.30)
[2019-02-27 03:55] LABS: Albumin, Blood 2.1 g/dL (3.4-5.0); Anion Gap 5 mmol/L (6-16); Blood Urea Nitrogen 57 mg/dL (8-24); Bun/Creatinine Ratio 30.8 (12.0-20.0); CO2, Blood 29 mmol/L (21-32); Calcium, Blood 8.2 mg/dL (8.5-10.1); Chloride, Blood 100 mmol/L (98-108); Creatinine, Blood 1.85 mg/dL (0.40-1.00); Glomerular Filtration Rate 30 (60-); Glucose, Blood 272 mg/dL (70-99); Magnesium, Blood 1.9 mg/dL (1.6-2.4); Phosphorus, Blood 4.2 mg/dL (2.5-4.9); Potassium, Blood 4.1 mmol/L (3.5-5.5); Sodium, Blood 134 mmol/L (136-145)
[2019-02-27 05:16] LABS: PO2 Arterial 77.5 mmHg (80-100); pH Blood Arterial 7.42 (7.35-7.45)
--- NOTE | 2019-02-27 06:31 | NUR ---
AT THE BEGINNING OF SHIFT, PATIENT WAS COMPLAINING OF SHOULDER, NECK, AND RIGHT UPPER ARM PAIN AT A LEVEL 8, WITH THE PAIN IN HER SHOULDER GOING UP TO A PAIN LEVEL OF 10, "STABBING PAIN". FENTANYL GIVEN WITH LITTLE EFFECT. ONE PERCOCET GIVEN WITH LITTLE EFFECT. SECOND PERCOCET GIVEN, WHICH REDUCED HER PAIN LEVEL. AT APPROX. 2300 PT COMPLAINED OF PAIN SHOULDER/NECK/UPPER RIGHT ARM, LEVEL OF 8. FENTANYL GIVEN WITH DESIRED EFFECT. PT WAS ON BIPAP EARLIER AND WAS SATTING WELL. WENT TO AIRVO WITH 44% AT 55L. PATIENT TOLERATED WELL, SATTED IN THE 90S, AND WAS ABLE TO SLEEP WITH THE AIRVO. LEVOPHED AT START OF SHIFT WAS AT 1MCG, PUT ON STANDBY, PATIENT'S BP HAS BEEN STABLE SINCE. INSULIN DRIP ON STANDBY. TKO @ 50ML/HR. VITALS ARE STABLE. PATIENT HAS BEEN VERY PLEASANT AND WILL CONTINUE TO MONITOR UNTIL END OF SHIFT/REPORT. PINEDA SAINI
--- NOTE | 2019-02-27 07:15 | NUR ---
BEGINNING OF SHIFT Assumed care at 0700 from Alejandro SAINI and Francisco Javier RN. Pt on AirVO 55 LPM and 40% FiO2. SpO2 averaging 92%. Pt has instances where SpO2 drops as low as 82%. Pt not in distress, states "I forgot to breathe. I do that sometimes". BiPAP offered, pt declined. Pt NPO at this time. Per BRIDGET RN, pt wore BiPAP for about 3 hours last night. Bed in lowest position. Call light in reach. Pt denies need at this time.
--- NOTE | 2019-02-27 07:45 | NUR ---
DR LESTER IN TO SEE PT Discussed blood sugars, labs, and current IV fluids. Orders given to DC NS.
--- NOTE | 2019-02-27 09:35 | NUR ---
DR HERMAN IN TO SEE PT Discussed O2 requirements, discussed activity. Provider states pt is allowed to eat, since she does not require BiPAP. Physical therapist in to see pt. Pt states concern that putting on her prosthesis will wear her out. This RN requested OT eval. New orders received from Dr Herman.
--- NOTE | 2019-02-27 10:41 | NUR ---
DR TAVON FLOWER IN TO SEE PT Discussed O2 requirements and activity with provider. Provider states he would like pt to stay in ICU and will reevaluate tomorrow.
--- NOTE | 2019-02-27 10:59 | NUR ---
UPDATE Dr Jose R Ovalle states he spoke to Dr Snow and suspects this pt aspirated. States he is comfortable transfering pt to PCU. States plan for barium swallow. This RN inquires if he would like ST involved for bedside eval. New orders given. Provider aware that pt ate breakfast tray. To remain NPO until ST sees pt. Notified Brenda from speech therapy. States she will be by shortly to see pt. States uncertainty of barium swallow being done today due to radiology.
--- NOTE | 2019-02-27 11:39 | NUR ---
CALL PLACED TO DR LESTER Notified provider of most recent potassium. Telephone order given to discontinue Veltassa.
--- NOTE | 2019-02-27 11:40 | NUR ---
UPDATE Pt currently receiving echocardiogram. Per imaging, barium swallow can be done at 1400.
--- NOTE | 2019-02-27 12:03 | NUR ---
Echocardiogram completed.
--- NOTE | 2019-02-27 13:18 | NUR ---
UPDATE Discussed blood sugars and current NPO with Dr Jose R Ovalle. New orders given. This RN also placed call to Dr Man to discuss oral nystatin. On assessment, pt's mouth is free of visible thrush. Pt states her mouth is not sore or painful like it previously was. Discussed that pt has been taking this medication since 02/18. New orders given Pt transferred to room PCU 1. Telephone report given to Layo JOSEPH. Pt on 8 LPM NC at time of transfer. BiPAP and AirVO transferred with pt. Pt transferred using slider sheet, accompanied by this RN and Mana MICHELLE.
--- NOTE | 2019-02-27 14:38 | NUR ---
PT TO RADIOLOGY PT LEFT UNIT BY JAMEY ACCOMPANIED BY RADILOGIST FOR BARIUM SWALLOW STUDY. TRANSFPORTIA CONCEPCION WITH 4 STAFF AND NO ISSUES
--- NOTE | 2019-02-27 18:24 | NUR ---
SHIFT SUMMARY ASSUMED CARE OF PT AT 1300 HRS, PT TRANSFERRED TO UNIT FROM ICU W/ NO C/O PAIN AND NO ISSUES. PT NPO ON ARRIVAL PENDING BARIUM SWALLOW EVAL AT AROUND 1400. AT RETURN FROM EVAL PT C/O NEW PAIN IN RT SHOULDER WHICH WAS UNRESOLVED WITH PERCOSET BUT RESOLVED TO PT'S SATISFACTION WITH FENTANYL. OTHERWISE ALL VSS STABLE UPON RETURN, PT HUNGRY AND HAPPY TO EAT DINNER PLUS EXTRA ORDERED SALAD. PT REMINDED AGAIN OF SWALLOW PRECAUTIONS: FULLY UPRIGHT WHEN EAT/DRINKING AND REMAIN UPRIGHT FOR AT LEAST 30 MIN AFTERWARDS. PT'S LUNG AVILA REMAINED CLEAR THROUGHOUT THE SHIFT. PT'S O2 SATS DROP BELOW 88 FROM TIME TO TIME, BUT SHE CORRECTS HER BREATHING AT THE SOUND OF THE ALARM AND RETURNS THEM TO 90% AND ABOVE. WILL CONTINUE TO MONITOR AND WILL PASS CARE AND REPORT TO ONCOMING SHIFT. BED LOCKED AND LOW, CALL LIGHT W/IN REACH.
--- NOTE | 2019-02-28 00:50 | NUR ---
ASSUMED CARE Pt presenting in bed, eyes closed. Pt awoke to light touch and verbal stim; pt alert and oriented x4, conversing appropriately with staff, able to make needs known. VSS. Breathing is even and unlabored at rest on 6L via hiflow NC. Pt educated on need to sit up during any PO intake. Pt took PO medications sitting up, compliant with all education. Pt with PICC and Powerglide both patent and draws. TKO at this time. Pt up to BSC with 1 assist for BM. Pt back to bed, mild MELGAR noted with transfer. As pt continued to rest, sats dropping into mid 80's and pt Hiflow increased to 6.5L which has maintained her sats >90%. Pt requested BIPAP and was placed on for approx 30 mins before pt requests to no longer wear BIPAP. hiflow placed back on pt per pt request. Will continue to monitor
[2019-02-28 03:41] LABS: BASOPHILS ABSOLUTE AUTO 0.01 K/mm3 (0.00-0.23); BASOPHILS PERCENT AUTO 0 % (0-2); EOSINOPHILS PERCENT AUTO 0 % (0-6); Hematocrit 25.2 % (33.0-51.0); Hemoglobin 8.3 g/dL (11.5-16.0); IMMATURE GRAN ABSOLUTE AUTO 0.18 K/mm3 (0.00-0.10); IMMATURE GRAN PERCENT AUTO 1 % (0-1); LYMPHOCYTES ABSOLUTE AUTO 0.34 K/mm3 (0.84-5.20); LYMPHOCYTES PERCENT AUTO 2 % (21-46); MONOCYTES ABSOLUTE AUTO 0.29 K/mm3 (0.16-1.47); MONOCYTES PERCENT AUTO 2 % (4-13); Mean Corpuscular HGB 30.5 pg (26.0-34.0); Mean Corpuscular HGB Conc 32.9 g/dL (31.5-36.5); Mean Corpuscular Volume 93 fL (80-100); Mean Platelet Volume 10.7 fL (9.1-12.4); NEUTROPHILS PERCENT AUTO 94 % (41-73); Platelet Count 241 K/mm3 (150-400); RDW Coefficient Variation 14.6 % (11.7-14.2); RDW Standard Deviation 49.4 fL (35.1-46.3); Red Blood Cell Count 2.72 M/mm3 (3.80-5.20); White Blood Cell Count 13.92 K/mm3 (4.00-11.30)
[2019-02-28 03:58] LABS: Albumin, Blood 2.2 g/dL (3.4-5.0); Anion Gap 7 mmol/L (6-16); Blood Urea Nitrogen 59 mg/dL (8-24); Bun/Creatinine Ratio 33.7 (12.0-20.0); CO2, Blood 28 mmol/L (21-32); Calcium, Blood 8.5 mg/dL (8.5-10.1); Chloride, Blood 99 mmol/L (98-108); Creatinine, Blood 1.75 mg/dL (0.40-1.00); Glomerular Filtration Rate 32 (60-); Glucose, Blood 343 mg/dL (70-99); Magnesium, Blood 1.9 mg/dL (1.6-2.4); Phosphorus, Blood 4.1 mg/dL (2.5-4.9); Potassium, Blood 3.8 mmol/L (3.5-5.5); Sodium, Blood 134 mmol/L (136-145)
--- NOTE | 2019-02-28 06:47 | NUR ---
Shift Summary Pt with VSS this shift, SBA to [facility] x2. Pt on hiflow NC between 5-7 L as needed, attempted BIPAP at 45% fio2 x1 this shift but pt did not tolerate for more than 30 minutes. Pt mildly MELGAR. Pain controlled with current medications on eMAR. PICC and Powerglide are patent and draw. Pt able to reposition self to comfort in bed but needs assistance with boosts. On trip to [facility] this AM, pt with large BM. Pt became mildly MELGAR, Saturations down to 70% and pt not able to recover with 10L Hiflow, BIPAP at 55% Fio2 placed for rescue and pt sats improved to 94%. Pt placed back onto 6L hiflow NC and with saturations >90%. RT notified and aware of desaturation event and currently at bedside. Pt with no further complaints; no acute concerns to note; no acute declines from initial shift assessment. Will continue to monitor and provide care until day RN assumes care.
--- NOTE | 2019-02-28 20:17 | NUR ---
SHIFT SUMMARY PT A&Ox3. ANXIOUS AT TIMES, COOPERATIVE WITH CARE. PT RESTING IN BED DURING SHIFT, UP TO RECLINER WITH OT/PT. PT REPORTS RIGHT ARM, SHOULDER, AND NECK PAIN, PT MEDICATED WITH PERCOCET x3 AND FENTx1. PT STATES HHER PAIN IN NOT WELL CONTROLLED HERE, "I USE CBD OIL AT HOME AND MY PAIN IS BETTER CONTROLLED." PT SOB WITH EXERTION, SPO2 DROPS TO LOW 80'S WITH AMBULATION, O2 TITRATED TO 9L O2 VIA NC WITH AMBULATION 6-8L O2 VIA NC AT REST. BLOOD GLUCOSE THIS AM 404, DR CHIN NOTIFIED, NO NEW ORDERS. PT SPOUSE BROUGHT IN [facility] FOR PT THIS AM, EDUCATED PT ON SUGAR FREE OPTIONS. VSS. NO OTHER ACUTE CHANGES NOTED. REPORT GIVEN TO ONCOMING RN.
--- NOTE | 2019-02-28 22:09 | NUR ---
GALLO D/C Orders for gallo to be d/c when pt is up; pt able to ambulate to chair and around room today and therefore, per orders, gallo d/c. will continue to monitor for urine output.
[2019-03-01 04:55] LABS: BASOPHILS ABSOLUTE AUTO 0.01 K/mm3 (0.00-0.23); BASOPHILS PERCENT AUTO 0 % (0-2); EOSINOPHILS PERCENT AUTO 0 % (0-6); Hematocrit 28.2 % (33.0-51.0); Hemoglobin 9.3 g/dL (11.5-16.0); IMMATURE GRAN ABSOLUTE AUTO 0.21 K/mm3 (0.00-0.10); IMMATURE GRAN PERCENT AUTO 2 % (0-1); LYMPHOCYTES PERCENT AUTO 3 % (21-46); MONOCYTES ABSOLUTE AUTO 0.34 K/mm3 (0.16-1.47); MONOCYTES PERCENT AUTO 3 % (4-13); Mean Corpuscular HGB 30.6 pg (26.0-34.0); Mean Corpuscular Volume 93 fL (80-100); Mean Platelet Volume 10.4 fL (9.1-12.4); NEUTROPHILS ABSOLUTE AUTO 10.82 K/mm3 (1.96-9.15); NEUTROPHILS PERCENT AUTO 92 % (41-73); Platelet Count 238 K/mm3 (150-400); RDW Coefficient Variation 14.7 % (11.7-14.2); RDW Standard Deviation 49.7 fL (35.1-46.3); Red Blood Cell Count 3.04 M/mm3 (3.80-5.20); White Blood Cell Count 11.78 K/mm3 (4.00-11.30)
[2019-03-01 05:17] LABS: Albumin, Blood 2.5 g/dL (3.4-5.0); Albumin/Globulin Ratio 0.7 (0.8-1.8); Bilirubin, Total 0.3 mg/dL (0.1-1.0); Calcium, Blood 8.8 mg/dL (8.5-10.1); Creatinine, Blood 1.76 mg/dL (0.40-1.00); Globulin, Blood 3.8 g/dL (2.2-4.0); Phosphorus, Blood 3.4 mg/dL (2.5-4.9); Potassium, Blood 3.5 mmol/L (3.5-5.5); Total Protein, Blood 6.3 g/dL (6.4-8.2)
--- NOTE | 2019-03-01 07:29 | NUR ---
SHIFT SUMMARY Pt with no acute changes overnight. Swann d/c'd and pt has voided using bsc. Pt on BIPAP from approx 2230 until 0340. VSS. complaint of pain x2 medicated per eMAR. Pt remains alert and oriented and able to make needs known via call light. No acute concerns to note. No changes from initial shift assessment. Pt slept on and off throughout night. CBG stable overnight. PICC and powerglide remain intact, patent. Pt able to move self in bed as needed. Pt up to bsc with one SBA. Pt on fluid restriction; PO intake of 320 overnight. Pt coopertive with fluid restriction and educated on need for restriction. Hand off has been given to day RN
--- NOTE | 2019-03-01 10:46 | NUR ---
Patient is sitting on a chair and alert. Patient shares about her family, her medical issues and the emotional drain her health struggles have had on her over the last 6 years. Patient got tearful and talked of her pain surrounding God, anurag and organized religious. I listened empathically, explored sources of value and meaning, conducted a life review, provided pastoral child guidance counselor, and prayer. Patient responded well and showed signs of restored anurag and hope and stated that the visit was extrmely helpful. I will continue to remain available to patient and family.
--- NOTE | 2019-03-01 18:11 | NUR ---
SHIFT SUMMARY PT A&Ox3. CALM AND COOPERATIVE WITH CARE. PT UP IN CHAIR FOR MAJORITY OF SHIFT. UP WITH 1 PERSON ASSIST IN ROOM. PT REPORTS PAIN IN RIGHT SHOULDER, NECK AND BACK, MEDICATED x3 PER EMAR. PT SOB WITH EXERTION, PT TITRATED FROM 7L O2 VIAN HF NC THIS AM TO 3.5L O2 VIA NC. O2 NEEDS INCREASED WITH ACTIVITY, 9L USED THIS AM. PT DENIES NASUEA. PT EDUCATED ON FLUID RESTRICTIONS AND GERD DIET T/O SHIFT. BLOOD GLUCOSE TRENDING DOWN OVERAL, CLARIFIED ORDERS FOR BEDTIME DOSE OF LANTUS WITH DR MORRISSEY, NEW ORDERS TO D/C. PT C/O OF PAIN TO MARICRUZ WHERE PICC IN PLACE, VENOUS DUPLEX ORDERED. PT RECEIVING IV ANTIBIOTICS, STEROIDS AND LASIX. VSS. NO OTHER ACUTE CHANGES NOTED. WILL CONTINUE TO MONITOR UNITL REPORT GIVEN TO ONCOMING RN.
--- NOTE | 2019-03-01 21:43 | NUR ---
CARE ASSUMPTION PT A&O X4. VSS. MONITOR SHOWS PACING W/ UNDERLING SR, HR 90s. SPO2 > 92% ON 3L NC. PT C/O R ARM, SHOULDER, AND NECK PAIN RATING PAIN A 8/10 REDUCED TO A 7/10 AFTER PAIN MEDICATION ADMINISTRATION PER ORDERS/PT REQUEST. WILL CONTINUE TO MONITOR AND PROVIDE CARE.
--- NOTE | 2019-03-01 22:24 | NUR ---
REPORT GIVEN TO ISRA Ortiz ASSUMING CARE OF PT IN PCU.
[2019-03-02 04:18] LABS: BASOPHILS ABSOLUTE AUTO 0.01 K/mm3 (0.00-0.23); BASOPHILS PERCENT AUTO 0 % (0-2); EOSINOPHILS ABSOLUTE AUTO 0.01 K/mm3 (0.00-0.68); EOSINOPHILS PERCENT AUTO 0 % (0-6); Hemoglobin 9.3 g/dL (11.5-16.0); IMMATURE GRAN ABSOLUTE AUTO 0.16 K/mm3 (0.00-0.10); IMMATURE GRAN PERCENT AUTO 2 % (0-1); LYMPHOCYTES PERCENT AUTO 7 % (21-46); MONOCYTES ABSOLUTE AUTO 0.31 K/mm3 (0.16-1.47); MONOCYTES PERCENT AUTO 4 % (4-13); Mean Corpuscular HGB 30.3 pg (26.0-34.0); Mean Corpuscular HGB Conc 33.2 g/dL (31.5-36.5); Mean Corpuscular Volume 91 fL (80-100); Mean Platelet Volume 10.2 fL (9.1-12.4); NEUTROPHILS ABSOLUTE AUTO 6.16 K/mm3 (1.96-9.15); NEUTROPHILS PERCENT AUTO 86 % (41-73); Platelet Count 215 K/mm3 (150-400); RDW Coefficient Variation 14.9 % (11.7-14.2); RDW Standard Deviation 48.7 fL (35.1-46.3); Red Blood Cell Count 3.07 M/mm3 (3.80-5.20); White Blood Cell Count 7.15 K/mm3 (4.00-11.30)
[2019-03-02 04:37] LABS: Albumin, Blood 2.3 g/dL (3.4-5.0); Albumin/Globulin Ratio 0.7 (0.8-1.8); Bilirubin, Total 0.3 mg/dL (0.1-1.0); Bun/Creatinine Ratio 29.5 (12.0-20.0); Calcium, Blood 8.5 mg/dL (8.5-10.1); Creatinine, Blood 1.76 mg/dL (0.40-1.00); Globulin, Blood 3.5 g/dL (2.2-4.0); Magnesium, Blood 1.9 mg/dL (1.6-2.4); Phosphorus, Blood 3.2 mg/dL (2.5-4.9); Potassium, Blood 3.5 mmol/L (3.5-5.5); Total Protein, Blood 5.8 g/dL (6.4-8.2)
--- NOTE | 2019-03-02 05:44 | NUR ---
SHIFT SUMMARY TOOK OVER CARE FROM PRIMARY NURSE AT 2200. PT IS A 53 Y/O FEMALE, ADMITTED FOR SEVERE SEPSIS R/T RECURRENT ASPIRATION PNA. SHE IS A&O X 4, AND A 1PA TO THE BS DUE TO A R BKA. PT WAS MEDICATED FOR R ARM/SHOULDER PAIN ONCE WITH PRN PERCOCET. NO COMPLAINT OF NAUSEA OR SOB. PT IS ON 3L O2 VIA NC. VITALS STABLE. NO OTHER ACUTE CHANGES IN PT CONDITION NOTED. WILL CONTINUE TO MONITOR AND TREAT PER EMAR UNTIL HAND OFF TO DAY SHIFT RN.
--- NOTE | 2019-03-02 08:00 | NUR ---
pt laying in bed, asks this nurse who i am as soon as i come into room, a/ox3, cooperative with care, follows commands well, denies pain, lungs are clear in upper jennings, dim in bases, resp even and unlabored, currently on 3.5liters 02 via high flow cannula no cough noted, hrr, tele in place running sr 100% paced rhythm, no edema noted, iv sites are picc to jaja, power glide to mally, sites are clear and patent, btx4, abd large soft nontender, voids without diff, skin very frail, with lots of ecchymotic areas, no open areas, yisel heck, call light in reach.
--- NOTE | 2019-03-02 12:45 | NUR ---
pt has been transfered to medical status, and has been taken upstairs via recliner as she was in this at this time. all belongings went with her, report given to recieving nurse.
--- NOTE | 2019-03-02 13:25 | NUR ---
PT TRANSFERRED FROM PCU 1 VIA RECLINER CHAIR. SHE WAS ASSISTED TO HER ROOM BY HER PCT'S. ALL HER PERSONAL BELONGINGS ARRIVED WITH HER. SHE IS A/O X 4 AND WATCHING TV IN HER CHAIR. PER REPORT SHE HAS MET HER FLUID RESTRICTION AMOUNT ALREADY TODAY HER BROUGHT HER BEVERAGES THIS MORNING. PT IS ABLE TO MAKE HER NEEDS KNOWN AND HAS HER CALL LIGHT IN REACH.
--- NOTE | 2019-03-02 16:02 | NUR ---
SHIFT SUMMARY: PT HAS BEEN A/O X 4 SINCE HER TRANSFER AND C/O PAIN X 1. PAIN MED WAS GIVEN ORDERED AND WAS EFFECTIVE AND PT WAS ABLE TO TAKE A NAP. PT CAME TO VISIT HER THIS AFTERNOON AND WAS PRETTY UPSET THAT HE WAS NOT NOTIFIED THAT SHE HAD MOVED ROOMS. PT APOLOGIZED FOR HIM BEING UPSET ANDHIS NUMBER IS ON THE WHITE BOARD FOR ANY UPDATES. PT IS RESTING IN BED WITH BLE ELEVATED ON PILLOWS. WAREHOUSE ADMINISTRATOR REPORTS SHE IS PACED AT 80. SHE CONTINUES ON 1 L FLUID RESTRICTION AND PER REPORT SHE MET THIS BEFORE HER TRANSFER TO MEDICAL FLOOR AND PT IS AWARE OF THIS. SHE IS ABLE TO MAKE HER NEEDS KNOWN AND CALLS FOR HELP WHEN NEEDED.
--- NOTE | 2019-03-03 05:29 | NUR ---
SHIFT SUMMARY NO ACUTE EVENTS OVERNIGHT. PATIENT REPORTED PAIN IN THE RIGHT SIDE OF HER NECK/SHOULDER. UP SBA TO BSC. R BKA, PROSTHETIC IN ROOM. AAOX4. WILL CONTINUE TO MONITOR.
[2019-03-03 06:10] LABS: BASOPHILS PERCENT AUTO 0 % (0-2); EOSINOPHILS PERCENT AUTO 2 % (0-6); Hematocrit 28.6 % (33.0-51.0); Hemoglobin 9.3 g/dL (11.5-16.0); IMMATURE GRAN PERCENT AUTO 2 % (0-1); LYMPHOCYTES ABSOLUTE AUTO 1.14 K/mm3 (0.84-5.20); LYMPHOCYTES PERCENT AUTO 18 % (21-46); MONOCYTES ABSOLUTE AUTO 0.38 K/mm3 (0.16-1.47); MONOCYTES PERCENT AUTO 6 % (4-13); Mean Corpuscular HGB 30.2 pg (26.0-34.0); Mean Corpuscular HGB Conc 32.5 g/dL (31.5-36.5); Mean Corpuscular Volume 93 fL (80-100); Mean Platelet Volume 10.6 fL (9.1-12.4); NEUTROPHILS ABSOLUTE AUTO 4.73 K/mm3 (1.96-9.15); NEUTROPHILS PERCENT AUTO 73 % (41-73); Platelet Count 184 K/mm3 (150-400); RDW Coefficient Variation 15.1 % (11.7-14.2); RDW Standard Deviation 50.4 fL (35.1-46.3); Red Blood Cell Count 3.08 M/mm3 (3.80-5.20); White Blood Cell Count 6.45 K/mm3 (4.00-11.30)
[2019-03-03 06:26] LABS: Albumin, Blood 2.3 g/dL (3.4-5.0); Anion Gap 7 mmol/L (6-16); Blood Urea Nitrogen 54 mg/dL (8-24); Bun/Creatinine Ratio 29.8 (12.0-20.0); CO2, Blood 31 mmol/L (21-32); Calcium, Blood 8.6 mg/dL (8.5-10.1); Chloride, Blood 103 mmol/L (98-108); Creatinine, Blood 1.81 mg/dL (0.40-1.00); Glomerular Filtration Rate 31 (60-); Glucose, Blood 200 mg/dL (70-99); Potassium, Blood 3.7 mmol/L (3.5-5.5); Sodium, Blood 141 mmol/L (136-145)
--- NOTE | 2019-03-03 06:33 | NUR ---
PATIENT COMPLAINED OF HAVING A "YEAST SMELL" IN HER MOUTH. I COULD NOT VISUALIZE ANY THRUSH. DR. LESTER GAVE VERBAL ORDER FOR DIFLUCAN 150MG DAILY FOR 3 DAYS. ORDER PLACED.
[2019-03-03] MEDS ORDERED: BENZ100A PO (09:39)
[2019-03-03] MEDS ORDERED: ACET325 PO (09:39)
[2019-03-03] MEDS ORDERED: FURO40 PO (09:40)
[2019-03-03] MEDS ORDERED: PRED20 PO (09:42)
[2019-03-03] MEDS ORDERED: Vsl#3 Capsule1 EACH PO (09:43)
[2019-03-03] MEDS ORDERED: LINE600 PO (09:43)
[2019-03-03] MEDS ORDERED: NYST100000 MT (09:44)
--- NOTE | 2019-03-03 12:27 | NUR ---
PT DCD HOME WITH AND HOME HEALTH. ALL RX REVIEWED WITH PT WHO VERBALIZES AND UNDERSTANDING. RX ORDERS FAXED TO PHARMACY OF CHOICE PER PT REQUEST. PT IS AWARE OF PCP F/U. POWER GLIDE REMOVED WITH NO ISSUE AND PICC REMOVED BY CHARGE NURSE. ALL PERSONAL BELONGINGS SENT WITH PT. PT TRANPORTED VIA [place] W/C. PT IS STABLE UPON DC.
== END 2019-03-03 12:30 | disposition home or self-care (01) | DRG 871 ==
LOC: ER 20:20 → PCU 22:46 → MEDS 22:46 → PCU 02-12 00:05 → MEDS 02-13 12:47 → PCU 02-13 14:20 → MEDS 02-22 15:04 → ICUE 02-25 19:47 → PCU 02-27 12:53 → MEDS 03-02 13:05
PROVIDERS: Emergency Medicine; Family Medicine; Internal Medicine; Internal Medicine Critical Care Medicine; Internal Medicine Nephrology; Pharmacist; ADMIT Internal Medicine
PROC: 02HV33Z Insertion of Infusion Device into Superior Vena Cava, Percutaneous Approach (ICD-10-PCS; 2019-02-11)
PROC: 5A09357 Assistance with Respiratory Ventilation, Less than 24 Consecutive Hours, Continuous Positive Airway Pressure (ICD-10-PCS; principal; 2019-02-14)
DX: A41.02 Sepsis due to Methicillin resistant Staphylococcus aureus (principal); R65.21 Severe sepsis with septic shock; J15.212 Pneumonia due to Methicillin resistant Staphylococcus aureus; J96.01 Acute respiratory failure with hypoxia; I44.2 Atrioventricular block, complete; N17.9 Acute kidney failure, unspecified; E87.1 Hypo-osmolality and hyponatremia; J44.1 Chronic obstructive pulmonary disease with (acute) exacerbation; E27.40 Unspecified adrenocortical insufficiency; J44.0 Chronic obstructive pulmonary disease with (acute) lower respiratory infection; Z79.4 Long term (current) use of insulin; E78.5 Hyperlipidemia, unspecified; G25.81 Restless legs syndrome; F41.8 Other specified anxiety disorders; I12.9 Hypertensive chronic kidney disease with stage 1 through stage 4 chronic kidney disease, or unspecified chronic kidney disease; Z89.511 Acquired absence of right leg below knee; E03.9 Hypothyroidism, unspecified; E11.22 Type 2 diabetes mellitus with diabetic chronic kidney disease; E87.5 Hyperkalemia; Z87.891 Personal history of nicotine dependence; D63.1 Anemia in chronic kidney disease; E11.65 Type 2 diabetes mellitus with hyperglycemia; T38.0X5A Adverse effect of glucocorticoids and synthetic analogues, initial encounter; E87.70 Fluid overload, unspecified; N18.3 Chronic kidney disease, stage 3 (moderate)
CPT/HCPCS: 36415; 36569; 36600; 51702; 71045; 71250; 73100; 74220; 76770; 80048; 80053; 80069; 80202; 81003; 82088; 82248; 82533; 82728; 82803; 82947; 83036; 83540; 83550; 83605; 83735; 83880; 83930; 84100; 84132; 84145; 84295; 85014; 85018; 85025; 85610; 87040; 87070; 87077; 87086; 87186; 87205; 92526; 92610; 93005; 93010; 93308; 93321; 93971; 94640; 94660; 94664; 94667; 94760; 94761; 94762; 96361; 96365; 96367; 97110; 97116; 97163; 97166; 97530; 97535; 98960; 99285-25; 99407; A9270; A9270-GY; C1751; J0456; J0610; J0696; J0881; J1644; J1720; J1815; J1940; J2020; J2185; J2543; J2916; J2920; J2930; J3010; J3370; J7030; J7050; J7060; J7512

== ENCOUNTER 2019-03-15 10:31 | Inpatient (IN) | payer OTHER ==
[~2019-03-15] VITALS: Ht 167.6 cm; Wt 84.3 kg
[~2019-03-15 10:31] MED LIST changes: +ACET325 PO; +Amlodipine Besy10 MG PO; +BASAGLAR K100 UNIT/1; +GABA300 PO; +GABA300T24 PO; +LINE600 PO; +LISI5 PO; +NYST100000 MT; +PRED20 PO; +Vsl#3 Capsule1 EACH PO
[2019-03-15 11:15] LABS: BASOPHILS ABSOLUTE AUTO 0.01 K/mm3 (0.00-0.23); BASOPHILS PERCENT AUTO 0 % (0-2); EOSINOPHILS ABSOLUTE AUTO 0.01 K/mm3 (0.00-0.68); EOSINOPHILS PERCENT AUTO 0 % (0-6); Hematocrit 24.9 % (33.0-51.0); IMMATURE GRAN ABSOLUTE AUTO 0.28 K/mm3 (0.00-0.10); IMMATURE GRAN PERCENT AUTO 4 % (0-1); LYMPHOCYTES ABSOLUTE AUTO 0.86 K/mm3 (0.84-5.20); LYMPHOCYTES PERCENT AUTO 11 % (21-46); MONOCYTES ABSOLUTE AUTO 0.73 K/mm3 (0.16-1.47); MONOCYTES PERCENT AUTO 9 % (4-13); Mean Corpuscular HGB 29.9 pg (26.0-34.0); Mean Corpuscular HGB Conc 32.1 g/dL (31.5-36.5); Mean Corpuscular Volume 93 fL (80-100); NEUTROPHILS ABSOLUTE AUTO 6.12 K/mm3 (1.96-9.15); NEUTROPHILS PERCENT AUTO 77 % (41-73); NRBC ABSOLUTE 0.02 K/mm3 (0.00-0.02); NRBC Auto 0.2 /100 WBC (0.0-0.2); Platelet Count 180 K/mm3 (150-400); RDW Coefficient Variation 14.6 % (11.7-14.2); RDW Standard Deviation 49.2 fL (35.1-46.3); Red Blood Cell Count 2.68 M/mm3 (3.80-5.20); White Blood Cell Count 8.01 K/mm3 (4.00-11.30)
[2019-03-15 11:25] LABS: Alanine Aminotransfer (ALT/SGP 12 U/L (12-78); Albumin, Blood 2.7 g/dL (3.4-5.0); Albumin/Globulin Ratio 0.7 (0.8-1.8); Alk Phos 78 U/L (50-136); Anion Gap 7 mmol/L (6-16); Aspartate Aminotrans (AST/SGOT 11 U/L (12-37); Bilirubin, Total 0.5 mg/dL (0.1-1.0); Blood Urea Nitrogen 29 mg/dL (8-24); Bun/Creatinine Ratio 21.8 (12.0-20.0); CO2, Blood 25 mmol/L (21-32); Calcium, Blood 8.2 mg/dL (8.5-10.1); Chloride, Blood 102 mmol/L (98-108); Creatinine, Blood 1.33 mg/dL (0.40-1.00); Globulin, Blood 3.9 g/dL (2.2-4.0); Glomerular Filtration Rate 44 (60-); Glucose, Blood 268 mg/dL (70-99); Potassium, Blood 5.1 mmol/L (3.5-5.5); Sodium, Blood 134 mmol/L (136-145); Total Protein, Blood 6.6 g/dL (6.4-8.2); Troponin I <0.015 ng/mL (0.000-0.040)
[2019-03-15] MEDS ORDERED: Nicoderm Cq1 EAC1 TOP (12:30)
[2019-03-15] MEDS ORDERED: BISA5EC PO (12:30)
[2019-03-15 12:50] LABS: PCO2 Arterial 36.2 mmHg (35-45); PO2 Arterial 54.4 mmHg (80-100); pH Blood Arterial 7.44 (7.35-7.45)
[2019-03-15] MEDS ORDERED: OXYC1TAB11 PO (12:50)
--- NOTE | 2019-03-15 15:45 | NUR ---
INITIAL ASSESSMENT PATIENT ARRIVED TO UNIT AT 1515 FROM ER. PATIENT ABLE TO SCOOT SELF OVER FROM THE ER GURNEY TO THE ICU BED. PATIENT ALERT AND ORIENTED X 4. PATIENT HAS FINE MUSCLE TREMORS NOTED. PATIENT WEAK, BUT ABLE TO MOVE ALL EXTREMITIES. PATIENT HAS R BKA WITH PROSTHETIC LEG IN ROOM. PATIENT STATES SHE HAS CHRONIC N/T IN R HAND AND BLES. PATIENT HAS TEMP OF 99.3 DEGREES FAHRENHEIT. PATIENT STATES SHE HAS CHRONIC NECK AND R SHOULDER PAIN. LUNG SOUNDS COARSE T/O. LOWER LOBES TIGHT. PATIENT ON 15 L OXYMIZER. PATIENT DESATS VERY QUICKLY AND TAKES A GOOD AMOUNT OF TIME TO RECOVER. PATIENT DENIES COUGH. PATIENT IN SR WITH BBB, HR 80S TO 90S. SBP 1-TEENS TO 120S. PATIENT STATES SHE HAS A PACEMAKER, SCAR NOTED ON LEFT CHEST. HEART MONITOR NOT PICKING UP ANY PACING. GI AND WNL. 3RD KNUCKLE ON L HAND SORE, REDDENED, SORE. R BKA STUMP REDDENED AND SORE. BRUISES/ SCRATCHES NOTED TO LEFT FA. BRUISES NOTED TO L LEG. IVS FLUSHED AND SALINE LOCKED. PATIENT ORIENTED TO UNIT, ROOM AND CALL SYSTEM. AT BEDSIDE. WILL CONTINUE TO MONITOR PATIENT FREQUENTLY THROUGHOUT SHIFT.
--- NOTE | 2019-03-15 19:04 | NUR ---
SHIFT SUMMARY PATIENT REMAINED ALERT AND ORIENTED. BP HYPERTENSIVE. PATIENT GIVEN SCHEDULED HOME DOSE OF LISINOPRIL. DR. PUGA INFORMED THAT BP CONTINUES TO BE HIGH. DR. PUGA STATED THAT HE WILL BE IN TO SEE PATIENT. PATIENT CONTINUES REPOSITIONING SELF IN BED. PATIENT CHANGED FROM 15 L OXYMIZER TO AIRVO 40 L AND 86% FIO2 TO KEEP SATS 88% AND GREATER. NO OTHER ACUTE CHANGES TO NOTE ON AT THIS TIME. PATIENT HAS NO COMPLAINTS AT THIS TIME. REPORT GIVEN TO ASSUMING ADOLESCENT PSYCHIATRIST NURSE.
--- NOTE | 2019-03-15 19:30 | NUR ---
ASSUMED PT CARE AT 1915 FROM JAKE PAUL PT SITTING UP IN BED WATCHING TV. PT VERY UPSET AND ANGRY THAT SHE HASN'T HAD ANYTHING TO EAT YET AND WAS "STARVING". EDUCATED PT DUE TO HER RESPIRATORY STATUS THAT THE DOCTORS WANTED HER TO REMAIN NPO UNTIL SHE WAS EVALUATED BY OUR ATTENDING UROLOGIST. PT CONTINUED TO BE UPSET AND STATED SHE WAS HUNGRY. OBTAINED ORDERS FROM DR. PUGA THAT IT WAS OKAY FOR PT TO HAVE AN ADA DIET TOLERATED. OBTAINED A YOGURT AND CHEESE FOR PT IN WHICH SHE WAS GRATEFUL. PT CONTINUES ON AIRVO WITH 40L/MIN AND 86% FIO2; RESP RATE 20'S. PT TENDS TO DECREASE IN OXYGEN SATURATIONS AND BECOME VERY SOB DURING CONVERSATION, WELL MINIMAL MOVEMENT. PT EDUCATED TO BREATHE THROUGH HER NOSE AND EXHALE THROUGH HER MOUTH UTILIZING PURSED LIP BREATHING. LUNG SOUNDS ARE COARSE T/O ALL LOBES WITH SHALLOW INSPIRATORY EFFORT. HEART TONES ARE DISTANT, BUT NSR WITH BBB NOTED. PT HAS A PACEMAKER THAT FIRES OCCASIONALLY. CALLED THIS EVENING AND TALKED WITH PT; CALL LIGHT IS WITHIN REACH. PT IS ABLE TO MAKE HER NEEDS KNOWN.
--- NOTE | 2019-03-15 19:48 | NUR ---
DR. PUGA AT BEDSIDE PT HAVING DIFFICULTY BREATHING DURING CONVERSATION WITH OXYGEN SATURATIONS DECREASING TO MID 80'S. DR. PUGA GAVE ORDERS TO INCREASE FLOW RATE TO 45L/MIN.
--- NOTE | 2019-03-15 19:57 | NUR ---
DR. PUGA NEW ORDERS FOR BIPAP NEEDED. AIRVO INCREASED TO 50L/MIN WITH 88% FIO2
--- NOTE | 2019-03-15 22:23 | NUR ---
HANDED OFF REPORT TO JAKE HARTLEY
[2019-03-15 22:47] LABS: Adenovirus Not Detected (NOT DETECT); Bordetella pertussis Not Detected (NOT DETECT); Chlamydophila pneumoniae Not Detected (NOT DETECT); Coronavirus 229E Not Detected (NOT DETECT); Coronavirus HKU1 Not Detected (NOT DETECT); Coronavirus NL63 Not Detected (NOT DETECT); Coronavirus OC43 Not Detected (NOT DETECT); Human Metapneumovirus Not Detected (NOT DETECT); Human Rhinovirus/Enterovirus Not Detected (NOT DETECT); Influenza A Not Detected (NOT DETECT); Influenza A/2009-H1 Not Detected (NOT DETECT); Influenza A/H1 Not Detected (NOT DETECT); Influenza A/H3 Not Detected (NOT DETECT); Influenza B Not Detected (NOT DETECT); Mycoplasma pneumoniae Not Detected (NOT DETECT); Parainfluenza Virus 1 Not Detected (NOT DETECT); Parainfluenza Virus 2 Not Detected (NOT DETECT); Parainfluenza Virus 3 Not Detected (NOT DETECT); Parainfluenza Virus 4 Not Detected (NOT DETECT); Respiratory Syncytial Virus Not Detected (NOT DETECT)
[2019-03-16 03:17] LABS: BASOPHILS ABSOLUTE AUTO 0.02 K/mm3 (0.00-0.23); BASOPHILS PERCENT AUTO 0 % (0-2); EOSINOPHILS ABSOLUTE AUTO 0.03 K/mm3 (0.00-0.68); EOSINOPHILS PERCENT AUTO 0 % (0-6); Hematocrit 23.3 % (33.0-51.0); Hemoglobin 7.5 g/dL (11.5-16.0); IMMATURE GRAN PERCENT AUTO 2 % (0-1); LYMPHOCYTES ABSOLUTE AUTO 1.96 K/mm3 (0.84-5.20); LYMPHOCYTES PERCENT AUTO 21 % (21-46); MONOCYTES ABSOLUTE AUTO 0.78 K/mm3 (0.16-1.47); MONOCYTES PERCENT AUTO 8 % (4-13); Mean Corpuscular HGB Conc 32.2 g/dL (31.5-36.5); Mean Corpuscular Volume 93 fL (80-100); Mean Platelet Volume 10.7 fL (9.1-12.4); NEUTROPHILS ABSOLUTE AUTO 6.25 K/mm3 (1.96-9.15); NEUTROPHILS PERCENT AUTO 68 % (41-73); Platelet Count 178 K/mm3 (150-400); RDW Coefficient Variation 14.6 % (11.7-14.2); RDW Standard Deviation 49.4 fL (35.1-46.3); White Blood Cell Count 9.24 K/mm3 (4.00-11.30)
[2019-03-16 03:37] LABS: Albumin, Blood 2.7 g/dL (3.4-5.0); Albumin/Globulin Ratio 0.7 (0.8-1.8); Bilirubin, Total 0.7 mg/dL (0.1-1.0); Bun/Creatinine Ratio 23.1 (12.0-20.0); Calcium, Blood 8.3 mg/dL (8.5-10.1); Creatinine, Blood 1.43 mg/dL (0.40-1.00); Globulin, Blood 3.9 g/dL (2.2-4.0); Potassium, Blood 5.1 mmol/L (3.5-5.5); Total Protein, Blood 6.6 g/dL (6.4-8.2)
--- NOTE | 2019-03-16 05:57 | NUR ---
SUMMARY PT RESTING IN BED ON AIRVO. HAS BEEN TOLERATING AIRVO ALL NIGHT. WAS ONLY ON BIPAP FOR A SHORT PERIOD OF TIME. PT DESATS WITH ANY EXERTION OR TALKING BUT ABLE TO RECOVER. ABLE TO MOVE SELF IN BED. USING BEDPAN DUE TO SOB. NO SIGN OF DISTRESS.
--- NOTE | 2019-03-16 09:12 | NUR ---
ASSUMED CARE: REPORT RECEIVED FROM ODILIA Aburto RN. ASSUMED CARE OF THIS PT AT APPROX 0700. ON ASSESSMENT, THE PT IS USING AIRVO AT 40 L/MIN & 85% FIO2. BIPAP TOLERATED, SETTINGS 12/7 & 80% FIO2. FREQUENT DESATS TO LOW 80s NOTED W/ MINIMAL EXERTION. LS COARSE T/O. 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 BP STABLE. NO GI COMPLAINTS, VOIDS W/O DIFFICULTY. SKIN OVERALL FRAGILE BUT INTACT. WILL CONTINUE TO MONITOR & UPDATE NEEDED.
[2019-03-16 10:15] LABS: Source, Urine Catheter
[2019-03-16 10:17] LABS: Bilirubin, Urine Neg (Neg); Blood, Urine Neg (Neg); Glucose Qualitative, Urine Neg (Neg); Ketones, Urine Neg (Neg); Leukocyte Esterase, Urine Neg (Neg); Nitrite, Urine Neg (Neg); Protein, Urine 2+ (Neg); Urobilinogen, Urine NORM (Normal)
[2019-03-16 10:25] LABS: Appearance, Urine Clear (Clear); Color, Urine Yellow (P-Yellow)
[2019-03-16 10:32] LABS: Amorphous Light (0-Heavy); Bacteria Not Seen /hpf; Red Blood Cells, Urine Rare /hpf (0-2); Squamous Epithelial Cells Few /hpf (Few); White Blood Cells, Urine Not Seen /hpf (0-5)
--- NOTE | 2019-03-16 10:34 | NUR ---
DR MARIEE: PROVIDER AT BEDSIDE TO [facility] PT. HE WOULD LIKE TO COBRA TX THIS PT TO [facility] FOR HIGHER LEVEL OF CARE & POSSIBLE NEED FOR LUNG BIOPSY. TRANSFER CENTER HAS BEEN NOTIFIED & PROVIDER HAS CALLED PT's TO NOTIFY HIM WELL. [facility] CONTACTED & STS THAT THEY CAN DO BIPAP IN TRANSIT. JONO Munoz, RT NOTIFIED OF THIS. IMAGES HAVE BEEN PUSHED TO [facility]. WILL CONTINUE TO MONITOR & UPDATE NEEDED.
--- NOTE | 2019-03-16 11:34 | NUR ---
COBRA TRANSFER DELAY: AFTER SPEAKING W/ PROVIDER AT [facility], DR MARIEE HAS DECIDED TO HOLD OFF ON TX TO [place] AT THIS TIME. SEE PROVIDER NOTE. WILL CONTINUE TO MONITOR & UPDATE NEEDED.
[2019-03-16] MEDS ORDERED: CLON.5 PO (12:19)
[2019-03-16] MEDS ORDERED: MEGA PROBIOTIC1 EACH PO (12:21)
[2019-03-16] MEDS ORDERED: NOVOLOG FL100 UNIT/1 SC (12:21)
--- NOTE | 2019-03-16 17:50 | NUR ---
SHIFT SUMMARY: PT REMAINS A&O, COOPERATIVE W/ CARE. LS COARSE T/O, COUGH IS MOIST BUT NONPRODUCTIVE. PT W/ DESATS TO 60s W/ MILD EXERTION, REST IS ENCOURAGED. SATS IMPROVE QUICKLY W/ BIPAP THERAPY. BIPAP SETTINGS 12/7 & 80% FIO2. AIRVO IN USE WHEN OFF BIPAP, AIRVO SETTINGS 50 L/MIN 85-90% FIO2. MONITOR SHOWS SR W/ 1ST DEGREE HB & BBB, HR 80-100s. BP STABLE. PT HAS NO GI COMPLAINTS & TOLERATES PO INTAKE WELL OTHER THAN DYSPNEA. CONTRERAS PATENT/ DRAINING DARK YELLOW URINE. WILL CONTINUE TO MONITOR & REPORT OFF TO ONCOMING RN.
--- NOTE | 2019-03-16 20:14 | NUR ---
PT RESTING IN BED. DROWSY TONIGHT BUT WAKES EASILY AND A/O X4. C/O PAIN IN NECK AND SHOULDER. SCHEDULED MEDS GIVEN. PT ABLE TO MOVE SELF IN BED AND SHIFT WEIGHT. HAS FULL ROM OF R BKA. PLACED BIPAP DUE TO PT BEING DROWSY AND SHE IS TOLERATING WELL. NO SIGN OF DISTRESS.
--- NOTE | 2019-03-16 22:09 | NUR ---
PT CBG IS 402. GAVE LANTUS AND CALLED HECTOR TURPIN. NEW ORDERS FOR ONE TIME LSS INSULIN TO BE GIVEN. PT IS DROWSY. TOLERATING THE BIPAP.
[2019-03-17 03:47] LABS: BASOPHILS ABSOLUTE AUTO 0.01 K/mm3 (0.00-0.23); BASOPHILS PERCENT AUTO 0 % (0-2); EOSINOPHILS PERCENT AUTO 0 % (0-6); Hematocrit 24.9 % (33.0-51.0); Hemoglobin 7.7 g/dL (11.5-16.0); IMMATURE GRAN ABSOLUTE AUTO 0.06 K/mm3 (0.00-0.10); IMMATURE GRAN PERCENT AUTO 1 % (0-1); LYMPHOCYTES ABSOLUTE AUTO 0.71 K/mm3 (0.84-5.20); LYMPHOCYTES PERCENT AUTO 11 % (21-46); MONOCYTES ABSOLUTE AUTO 0.36 K/mm3 (0.16-1.47); MONOCYTES PERCENT AUTO 5 % (4-13); Mean Corpuscular HGB 28.8 pg (26.0-34.0); Mean Corpuscular HGB Conc 30.9 g/dL (31.5-36.5); Mean Corpuscular Volume 93 fL (80-100); Mean Platelet Volume 11.3 fL (9.1-12.4); NEUTROPHILS ABSOLUTE AUTO 5.62 K/mm3 (1.96-9.15); NEUTROPHILS PERCENT AUTO 83 % (41-73); Platelet Count 201 K/mm3 (150-400); RDW Coefficient Variation 14.1 % (11.7-14.2); RDW Standard Deviation 48.1 fL (35.1-46.3); Red Blood Cell Count 2.67 M/mm3 (3.80-5.20); White Blood Cell Count 6.76 K/mm3 (4.00-11.30)
[2019-03-17 04:09] LABS: Bun/Creatinine Ratio 24.6 (12.0-20.0); Calcium, Blood 8.5 mg/dL (8.5-10.1); Creatinine, Blood 1.67 mg/dL (0.40-1.00); Potassium, Blood 4.4 mmol/L (3.5-5.5)
--- NOTE | 2019-03-17 06:15 | NUR ---
SUMMARY PT SLEPT A GOOD PORTION OF THE NIGHT AND WAS ABLE TO WEAR BIPAP MOST OF THE NIGHT. FIO2 60-75%. WHEN ON AIRVO FIO2 IS 60-80%. LS COARSE T/O. GETS SOB WITH ANY EXERTION. DESATS TO THE 70'S-80% QUICKLY WITH ANY LEAK IN MASK. PT REMAINS A/O X4. NO SIGN OF DISTRESS. CALL LIGHT IN REACH.
--- NOTE | 2019-03-17 07:40 | NUR ---
ASSUMED CARE OF PT AT 0700. REPORT FROM ODILIA JOSEPH. PT RESTING IN BED. WAKES c VERBAL STIMULI. BIPAP IN PLACE, SETTINGS 03/25 75%, CHANGED TO AIRVO 60L 83% PER PT REQUEST. PT SPEAKING IN SHORT SENTANCES. PT DESATS TO LOW 80'S c MINIMAL MOVEMENT OR CONVERSATION. O2 SATS INCREASE TO MID 90'S c COACHING. LUNGS COARSE THROUGHOUT. PACED RHYTHM, RATE 80'S. BP STABLE. PT C/O CHRONIC NECK/SHOULDER PAIN. ABD ROUND, SOFT NON TENDER. BT X 4. REGULAR DIET, ASSISTED c MEALS D/T SOB. CONTRERAS PATENT AND DRAINING TO GRAVITY, CLEAR YELLOW URINE OUT. WILL CONTINUE TO MONITOR.
[2019-03-17 08:39] LABS: Glucose, Blood 530 mg/dL (70-99)
--- NOTE | 2019-03-17 10:07 | NUR ---
DR MONTES DE OCA IN TO SEE PT AT 0930. DECREASED FIO2 TO 75% ON AIRVO, PT MAINTAINED O2 SATS MID 90'S FOR APPROX 5 MINS, SATS DECREASED, PLACED BIBAP 8/4 80%, SATS LOW 90'S.
[2019-03-17 10:10] LABS: Antinuclear Antibody Screen Negative (Negative)
--- NOTE | 2019-03-17 12:32 | NUR ---
PT DROWSY WHEN UNDISTURBED. WAKES c VERBAL STIMULI, PER DR MONTES DE OCA, WILL ENCOURAGE PT TO WEAR BIPAP MOST OF DAY c BREAKS FOR MEALS. PT AGREEABLE. O2 SATS LOW 90'S ON BIPAP, CHANGED TO AIRVO FOR LUNCH. 86%, O2 SATS DECREASE TO LOW 80'S c MINIMAL EXERTION. ASSISTED PT c MEAL, ENCOURAGED AND COACHED DEEP BREATHS DURING. REPORT TO SAM JOSEPH.
--- NOTE | 2019-03-17 12:56 | NUR ---
RECEIVED REPORT FROM EDITH BELTRE RN, ASSUMED CARE, PATIENT IS EATING LUNCH AT THIS TIME, ON AIRVO AT 60L AND 85 %, PATIENT DESATS EXTREMELY FAST AND IS EASILY COACHED TO REGAIN ADEQUATE O2 SATURATION, AWAITING TRANSFER TO [facility] POSSIBLY TOMORROW MORNING, CALL LIGHT IN REACH, WILL CONTINUE TO MONITOR.
--- NOTE | 2019-03-17 13:12 | NUR ---
PATIENT PLACED BACK ON BIPAP AFTER LUNCH, IN BRIEFLY, UPDATED ON PATIENT CONDITION, CALL LIGHT IN REACH, WILL CONTINUE TO MONITOR.
--- NOTE | 2019-03-17 13:17 | NUR ---
LEE RT IN TO CHECK ON PATIENT, SATING BETWEEN 86-90% ON BIPAP SETTINGS, CALL LIGHT IN REACH, WILL CONTINUE TO MONITOR.
[2019-03-17 13:35] LABS: Rheumatoid Factor, Serum Negative (Negative)
--- NOTE | 2019-03-17 14:00 | NUR ---
LAB IN TO DRAW NEWLY ORDERED LABS.
[2019-03-17 14:57] LABS: Vancomycin, Trough 20.9 ug/mL (5.0-10.0)
--- NOTE | 2019-03-17 15:35 | NUR ---
PATIENT CONTINUES TO REST COMFORTABLY WITH EYES CLOSED AT THIS TIME, CALL LIGHT IN REACH, WILL CONTINUE TO MONITOR.
--- NOTE | 2019-03-17 15:58 | NUR ---
Initial Visit: Consult for AD/POLST, symptom managment, advanced care planning. Pt his past medical history of COPD, CHF, aspiration pneumonia with MRSA infection, anxiety, DM2, obesity, depression, CKD stage 3, R BKA, admission for hypoxic respiratory failure. Pt is alert, oriented. She is drowsy and has just received IV pain medication for her back and her neck. She reports 8/10 post medication, and 8/10 anxiety level. Her pain is chronic and is maintained at home on Percocet. Her pain is worse in the hospital due to the bipap straps on her head. She gets occassional headaches, sometimes dizzy, denies ringing in her ears. She does get dizzy when she stands up occassionally, but she has not been up out of bed for "a while" due to her weakness and shortness of breath. Her appetite is poor and she isn't able to eat meals that well due to her respiratory status. Her main complaint is pain and anxiety. She hasn't had anything for anxiety since around 8am this morning and she is requesting more medication now. Discussed difficulty of medicating with benzos and pain medication. Instructed that it lowers respiratory drive. She states that she understands this, and would like medication support if the nurse will give it to her. She is speaking through a small bipap mask. Pt reports that she has been very weak at home. She is usually able to be up and moving around the house in short periods of time, but she hasn't been able to do that for weeks. She requires help with most of her ADLs. Her showers her and helps her with her bathroom needs frequently. She usually ambulates around the home using leon, counter tops, and furniture. She does not have strength to do any hobbies. She plays on a tablet and watches TV most of the time. She does find pleasure in doing these activities. Discussed code status. She is currently a FULL code. Reviewed interventions with her. She does not especially want CPR or intubation, however, she would accept these if they could save her life. She remains full code status at this time. Pt reports that her alternative decision maker is her . Reports that they have had a conversation about these interventions and that he would "know when to tell them to stop." She is very concerned about her breathing. Pt's prognosis appears poor. At risk for intubation if she declines. Spoke with nurse. Nurse reports that pt is supposed to get transfered acutely tomorrow. [facility] is hesitant to send her at this time, due to her risk of intubation. No other concerns at this time. Nurse aware that pt would like anxiety medication if possible.
--- NOTE | 2019-03-17 16:01 | NUR ---
DAUGHTER AND SON IN TO SEE PATIENT, CALL LIGHT IN REACH, WILL CONTINUE TO MONITOR.
--- NOTE | 2019-03-17 16:30 | NUR ---
PATIENT REQUESTED TO BE PLACED ON AIRVO FOR A WHILE, WILL HAVE HER ON AIRVO NC UNTIL AFTER DINNER AND THEN PLACE BACK ON BIPAP MASK.
--- NOTE | 2019-03-17 17:14 | NUR ---
PATIENT EATING DINNER, TOOK LISINOPRIL WITHOUT ANY PROBLEMS, ALSO REQUESTED ONE ATIVAN, GIVEN PO, RT IN TO CHECK ON PATIENT AND TURNED O2 SATS UP TO 95 % WITH 60L ON AIRVO, PATIENT TOLERATING WELL AND SATING IN LOW 90'S, CALL LIGHT IN REACH, WILL CONTINUE TO MONITOR.
--- NOTE | 2019-03-17 17:42 | NUR ---
SHIFT SUMMARY NOTE: NO ACUTE EVENTS DURING THIS SHIFT, PATIENT WAS A LITTLE SOMNOLENT AND OBTUNDED FIRST THING THIS MORNING D/T BEING MEDICATED SIMULTANEOUSLY WITH OXYCODONE, ATIVAN AND FENTANYL, PATIENT WAS ON AIRVO AT 80 % WITH 60L AND O2 SATS WERE IN LOW 80'S, PLACED ON BIPAP AND PATIENT RECOVERED WITH O2 SATS IN UPPER 80'S TO LOW 90'S, ATIVAN WAS DECREASED BY DR. MONTES DE OCA, ALSO PATIENT WAS ON LOW SS FOR BLOOD GLUCOSE ABOVE 500'S, SLIDING SCALE CHANGED TO HIGH AND PATIENT NOW IN 200'S, HAS GOOD APPETITE AND ATE MOST OF HER LUNCH AND ALL OF HER DINNER, APPEARS MORE ALERT AND IS TALKATIVE, VERY COOPERATIVE, ABLE TO FOLLOW ALL COMMANDS, VSS, AFEBRILE, DENIES PAIN AT THIS TIME, FOR DETAILS SEE SHIFT ASSESSMENT DOCUMENTATION AND NURSES NOTES, CALL LIGHT IN REACH, WILL CONTINUE TO MONITOR AND GIVE REPORT TO ONCOMING BROKER ASSISTANT.
--- NOTE | 2019-03-17 20:00 | NUR ---
ASSUMPTION OF CARE: PT A & 0. CURRENTLY COMPLAINS OF PAIN 11/26. AFEBRILE AT THIS TIME. ON AIRVO SP02 88-90S. HR IN THE 80S, IS 100% PACED, SBP IN THE 110S-120S. BT X 4. CONTRERAS IN PLACE DRAINING YELLOW URINE. PT HAS A R BKA, BRUISING/SCAR TO L FA. OTHERWISE SKIN IS C/D/I. 20G IV TO LFA, 22G TO L WRIST. 20G IV IS INFUSING, 22G IS SL. WILL CONTINUE TO MONITOR
[2019-03-18 03:19] LABS: BASOPHILS ABSOLUTE AUTO 0.01 K/mm3 (0.00-0.23); BASOPHILS PERCENT AUTO 0 % (0-2); EOSINOPHILS PERCENT AUTO 0 % (0-6); Hematocrit 25.1 % (33.0-51.0); Hemoglobin 7.9 g/dL (11.5-16.0); IMMATURE GRAN ABSOLUTE AUTO 0.08 K/mm3 (0.00-0.10); IMMATURE GRAN PERCENT AUTO 1 % (0-1); LYMPHOCYTES ABSOLUTE AUTO 0.43 K/mm3 (0.84-5.20); LYMPHOCYTES PERCENT AUTO 4 % (21-46); MONOCYTES ABSOLUTE AUTO 0.44 K/mm3 (0.16-1.47); MONOCYTES PERCENT AUTO 4 % (4-13); Mean Corpuscular HGB 29.3 pg (26.0-34.0); Mean Corpuscular HGB Conc 31.5 g/dL (31.5-36.5); Mean Corpuscular Volume 93 fL (80-100); Mean Platelet Volume 11.4 fL (9.1-12.4); NEUTROPHILS ABSOLUTE AUTO 9.48 K/mm3 (1.96-9.15); NEUTROPHILS PERCENT AUTO 91 % (41-73); NRBC ABSOLUTE 0.02 K/mm3 (0.00-0.02); NRBC Auto 0.2 /100 WBC (0.0-0.2); Platelet Count 263 K/mm3 (150-400); RDW Coefficient Variation 14.2 % (11.7-14.2); RDW Standard Deviation 47.8 fL (35.1-46.3); White Blood Cell Count 10.44 K/mm3 (4.00-11.30)
[2019-03-18 03:50] LABS: Alanine Aminotransfer (ALT/SGP 6 U/L (12-78); Albumin, Blood 2.4 g/dL (3.4-5.0); Albumin/Globulin Ratio 0.5 (0.8-1.8); Alk Phos 134 U/L (50-136); Anion Gap 11 mmol/L (6-16); Aspartate Aminotrans (AST/SGOT 31 U/L (12-37); Bilirubin, Total 0.5 mg/dL (0.1-1.0); Blood Urea Nitrogen 53 mg/dL (8-24); Bun/Creatinine Ratio 30.3 (12.0-20.0); CO2, Blood 23 mmol/L (21-32); Calcium, Blood 8.5 mg/dL (8.5-10.1); Chloride, Blood 101 mmol/L (98-108); Creatinine, Blood 1.75 mg/dL (0.40-1.00); Globulin, Blood 4.5 g/dL (2.2-4.0); Glomerular Filtration Rate 32 (60-); Glucose, Blood 206 mg/dL (70-99); Potassium, Blood 4.2 mmol/L (3.5-5.5); Sodium, Blood 135 mmol/L (136-145); Total Protein, Blood 6.9 g/dL (6.4-8.2); Vancomycin, Random 14.7 ug/mL
--- NOTE | 2019-03-18 05:16 | NUR ---
SHIFT SUMMARY: PT ALERT AND ORIENTED, AFEBRILE THROUGHOUT SHIFT. PT REPORTS SOME PAIN 11/26. RECEIVED PO OXY AND IV FENTANYL. PT WAS ABLE TO REST COMFORTABLY THROUGHOUT SHIFT. LUNG SOUNDS ARE COARSE AND TIGHT. CURRENTLY ON BIPAP/AVAP. SETTINGS: MIN-6/4, MAX-12/4, EPAP 4, TV 380, FI02 AT 70%. PT CAME OFF BIPAP BRIEFLY AND WAS PLACED ON AIRVO. PT NEEDED CONSTANT REMINDERS TO BREATH IN THROUGH HER NOSE AND TO NOT HOLD HER BREATH. PT HAD DIFFICULTY FOLLOWING DIRECTIONS, 02 SATS DROPPED, AND WAS PLACED BACK ON BIPAP. PT IS 100% PACED, SBP IN THE 120S, HR IN THE 80S. BT PRESENT, LAST BM 03/15/19, CONTRERAS IN PLACE DRAINING DARKISH YELLOW URINE. PT HAS A R BKA, STUMP HAS SOME REDNESS TO IT. PT HAS 20G L FA IV THAT IS CURRENTLY INFUSING NS TKO. ALSO HAS 22 L WRIST IV THAT IS SL.
--- NOTE | 2019-03-18 07:20 | NUR ---
ASSUMED CARE OF PT AT 0700. PT APPEARS TO BE SLEEPING IN BED. WAKES c VERBAL STIMULI. A&OX 3. ANSWERS QUESTIONS APPROPRIATELY. APPEARS TO FALL ASLEEP WHEN UNDISTURBED. PT C/O SHOULDER AND BACK PAIN. BIPAP IN PLACE, 11/20 80%. LUNGS COARSE THROUGHOUT. IRREGULAR RESP. PACED RHYTHM. PT P/W/D. ABD ROUND, SOFT AND NON TENDER. BT X 4. CONTRERAS PATENT AND DRAINING TO GRAVITY. VSS AT THIS TIME. WILL CONTINUE TO MONITOR.
[2019-03-18 11:06] LABS: ANTI-DSDNA ANTIBODIES 1 IU/mL (0-9); ANTI-JO-1 <0.2 AI (0.0-0.9); ANTISCLERODERMA-70 ANTIBODIES 4.6 AI (0.0-0.9); SJOGREN'S ANTI-SS-A <0.2 AI (0.0-0.9); SJOGREN'S ANTI-SS-B <0.2 AI (0.0-0.9)
--- NOTE | 2019-03-18 13:40 | NUR ---
PORTABLE CHEST XRAY DONE.
[2019-03-18 16:06] LABS: CCP ANTIBODIES IGG/IGA 7 units (0-19)
--- NOTE | 2019-03-18 19:00 | NUR ---
SHIFT SUMMARY PT REMAINED ON BIPAP MOST OF SHIFT. SETTINGS / 80%. O2 SATS HIGH 80'S, LOW 90'S. LUNGS COARSE THROUGHOUT. REMOVED BIPAP AND PLACED AIRVO FOR PT'S BREAKFAST AND LUNCH. PT REQUIRED FREQUENT REMINDERS TO BREATH THROUGH NOSE. PT TIRED QUICKLY AND BEGAN MOUTH BREATHING. BIPAP REPLACED IMMEDIATELY AFTER MEALS. PT UNABLE TO TOLERATE THIS FOR DINNER, O2 SATS DECREASED IMMEDIATELY. BIPAP PLACED. CONTINUED ANTIBIOTIC AND STEROID TREATMENT. SO UPDATED. REPORT TO ONCOMING SHIFT.
--- NOTE | 2019-03-18 21:45 | NUR ---
ASSUMED PT CARE AT 1915 FROM [facility]KE BASILIO PT SITTING UP IN BED WITH BIPAP IN PLACE; AVAP SETTINGS WITH MIN IPAP PRESSURE OF 6 AND MAX OF 12. FIO2 90%, GOAL TV 380, BACK UP RESP RATE OF 18. PT VERY LETHARGIC AND FATIGUED D/T WORK OF BREATHING; ONLY ABLE TO SAY 1-2 WORDS AT A TIME. VERY LABORED WITH ACCESSORY MUSCLE USE. PT REQUESTED BREAK FROM BIPAP AND WAS PLACED ON AIRVO WITH 60L/MIN AT 94% FIO2. PT NEEDED CONSTANT REINFORCEMENT AND COACHING FOR DEEP BREATHING AND PURSED LIP BREATHING. PT ABLE TO SWALLOW HER MEDS ADEQUATELY; HOWEVER, WITH HER INCREASINGLY WORK OF BREATHING AND LETHARGY THIS IS BECOMING A CAUSE OF CONCERN FOR SAFE SWALLOWING. AFTER MED ADMINISTRATION PT WAS PLACED BACK ON THE BIPAP WITH SAME AVAP SETTINGS WITH FIO2 AT 90%; BIOX 88-92%. LUNG SOUNDS ARE NOTED TO BE DIMINISHED TO RUL, WITH INSPIRATORY CRACKLES NOTED T/O ALL OTHER LOBES. PT NOTED TO BE 100% ATRIAL PACED WITH AN UNDERLYING A FLUTTER RHYTHM. DR. MONTES DE OCA NOTIFIED WITH NO NEW ORDERS OTHER THAN TO MAINTAIN BIOX ABOVE 88% AND KEEP ON BIPAP FOR THE NIGHT; AVOIDING AIRVO UNTIL FURTHER REASSESSMENT IN THE AM. CONTRERAS CATHETER IS PATENT AND DRAINING TO GRAVITY; CLEAR, YELLOW. POWERGLIDE TO LEFT UPPER ARM WITH NS TKO INFUSING FOR ABO ADMINISTRATION. CALL LIGHT IS WITHIN REACH AND PT IS ABLE TO MAKE HER NEEDS KNOWN.
--- NOTE | 2019-03-19 05:30 | NUR ---
END OF SHIFT SUMMARY NO SIGNIFICANT CHANGES SINCE LAST ENTRY. PT HAS REMAINED ON BIPAP T/O NIGHT WITH SAME SETTINGS BEFORE; EXCEPT WITH RECENT TITRATION OF FIO2 DOWN TO 80%. BIOX HAS REMAINED GREATER THAN 88%. PT REMAINS DROWSY AND LETHARGIC, BUT DOES APPEAR TO HAVE MORE ENERGY THAN START OF SHIFT. PT HAS TAKEN SHORT BREAKS FROM BIPAP FOR MED ADMINISTRATION AND SMALL SNACKS, SUCH YOGURT. PLACED ON AIRVO DURING THIS TIME AT 60L/MIN AND 94% FIO2 WITH PT TOLERATING WELL, BUT STILL NEEDED FREQUENT COACHING AND REINFORCEMENT REGARDING BREATHING TECHNIQUES. LUNG SOUNDS REMAIN COARSE WITH INSPIRATORY CRACKLES NOTED T/O ALL LOBES, EXCEPT RUL APPEARS DIMINISHED. PT CONVERTED FROM A FLUTTER TO 100% VENTRICULAR PACED WITH AN UNDERLYING NSR AROUND 0100. VSS; SEE FLOWSHEET. CALL LIGHT WITHIN REACH. WILL CONTINUE TO MONITOR UNTIL REPORT IS HANDED OFF TO ONCOMING RN.
[2019-03-19 05:37] LABS: BASOPHILS ABSOLUTE AUTO 0.01 K/mm3 (0.00-0.23); BASOPHILS PERCENT AUTO 0 % (0-2); EOSINOPHILS PERCENT AUTO 0 % (0-6); Hematocrit 24.7 % (33.0-51.0); Hemoglobin 7.7 g/dL (11.5-16.0); IMMATURE GRAN ABSOLUTE AUTO 0.05 K/mm3 (0.00-0.10); IMMATURE GRAN PERCENT AUTO 1 % (0-1); LYMPHOCYTES PERCENT AUTO 5 % (21-46); MONOCYTES ABSOLUTE AUTO 0.41 K/mm3 (0.16-1.47); MONOCYTES PERCENT AUTO 5 % (4-13); Mean Corpuscular HGB 28.6 pg (26.0-34.0); Mean Corpuscular HGB Conc 31.2 g/dL (31.5-36.5); Mean Corpuscular Volume 92 fL (80-100); Mean Platelet Volume 11.4 fL (9.1-12.4); NEUTROPHILS ABSOLUTE AUTO 6.73 K/mm3 (1.96-9.15); NEUTROPHILS PERCENT AUTO 89 % (41-73); Platelet Count 270 K/mm3 (150-400); RDW Coefficient Variation 14.3 % (11.7-14.2); RDW Standard Deviation 47.9 fL (35.1-46.3); Red Blood Cell Count 2.69 M/mm3 (3.80-5.20)
[2019-03-19 05:52] LABS: Albumin, Blood 2.1 g/dL (3.4-5.0); Anion Gap 8 mmol/L (6-16); Blood Urea Nitrogen 62 mg/dL (8-24); Bun/Creatinine Ratio 40.3 (12.0-20.0); CO2, Blood 25 mmol/L (21-32); Calcium, Blood 8.2 mg/dL (8.5-10.1); Chloride, Blood 104 mmol/L (98-108); Creatinine, Blood 1.54 mg/dL (0.40-1.00); Glomerular Filtration Rate 37 (60-); Glucose, Blood 314 mg/dL (70-99); Phosphorus, Blood 3.8 mg/dL (2.5-4.9); Potassium, Blood 4.9 mmol/L (3.5-5.5); Sodium, Blood 137 mmol/L (136-145)
--- NOTE | 2019-03-19 09:36 | NUR ---
DR. MONTES DE OCA AT BEDSIDE FOR ASSESSMENT. SHOWED PT'S SPOUSE IMPROVEMENT IN CXR. WILL CONTINUE STEROIDS. NO PLAN LORRIE TRANSFER TO [facility] AT THIS TIME. PLAN IS TO REMAIN IN ICU FOR ~ 1 WEEK.
--- NOTE | 2019-03-19 10:44 | NUR ---
DR. JOHNSON AT BEDSIDE. ADDED ADDITIONAL 5 UNITS SQ INSULIN WITH MEALS IN ADDITIONAL TO SLIDING SCALE. DID NOT WANT TO ADD HS BG CHECK. NO OTHER ORDERS AT THIS TIME.
--- NOTE | 2019-03-19 18:55 | NUR ---
SHIFT SUMMARY: A&O X 3, CAN KOHLER. C/O PAIN IN R HIP; MEDICATED WITH PERCOCET AND FENTANYL WITH ADEQUATE RELIEF. CARCIAC RHYTHM IS 100% V PACED. OXYGEN SATS IMPROVED THROUGHOUT THE DAY, TOLERATED AIRVO MOST OF THE AFTERNOON, BUT NEEDS CONSTANT REMINDERS TO BREATHE IN THROUGH HER NOSE WHEN SATS FALL TO 75-85%. LUNG SOUNDS HAVE IMPROVED THROUGHOUT THE DAY, ARE CLEARER IN BILATERAL UPPER LOBES. CONTRERSA DRAINING ADEQUATE URINE. PLAN IS TO CONTINUE STEROIDS AND ABX.
[2019-03-20 05:01] LABS: BASOPHILS PERCENT AUTO 0 % (0-2); EOSINOPHILS PERCENT AUTO 0 % (0-6); Hematocrit 27.3 % (33.0-51.0); Hemoglobin 8.9 g/dL (11.5-16.0); IMMATURE GRAN ABSOLUTE AUTO 0.07 K/mm3 (0.00-0.10); IMMATURE GRAN PERCENT AUTO 1 % (0-1); LYMPHOCYTES ABSOLUTE AUTO 0.46 K/mm3 (0.84-5.20); LYMPHOCYTES PERCENT AUTO 6 % (21-46); MONOCYTES PERCENT AUTO 5 % (4-13); Mean Corpuscular HGB Conc 32.6 g/dL (31.5-36.5); Mean Platelet Volume 11.1 fL (9.1-12.4); NEUTROPHILS ABSOLUTE AUTO 6.77 K/mm3 (1.96-9.15); NEUTROPHILS PERCENT AUTO 88 % (41-73); Platelet Count 307 K/mm3 (150-400); RDW Coefficient Variation 14.2 % (11.7-14.2); RDW Standard Deviation 45.8 fL (35.1-46.3); Red Blood Cell Count 3.07 M/mm3 (3.80-5.20)
[2019-03-20 05:02] LABS: Mean Corpuscular Volume 89 fL (80-100)
[2019-03-20 05:20] LABS: Albumin, Blood 2.2 g/dL (3.4-5.0); Albumin/Globulin Ratio 0.6 (0.8-1.8); Bilirubin, Total 0.4 mg/dL (0.1-1.0); Bun/Creatinine Ratio 40.4 (12.0-20.0); Calcium, Blood 8.3 mg/dL (8.5-10.1); Creatinine, Blood 1.41 mg/dL (0.40-1.00); Potassium, Blood 4.5 mmol/L (3.5-5.5); Total Protein, Blood 6.2 g/dL (6.4-8.2)
--- NOTE | 2019-03-20 06:45 | NUR ---
shift summary PATIENT SLEPT WELL THROUGH MOST OF NIGHT. BIPAP WAS MAINTAINED MOST OF THE NIGHT, FIO2 TITRATED DOWN TO 70%, MAINTAINING SPO2 READINGS ~ 92%. PATIENT WAS TAKEN OFF BIPAP TO AIRVO, 60L 85% AT 05:00 THIS AM FOR MORNING MEDS, COMFORT, MAINTAINING SPOT ~ 92%, TITRATING DOWN FIO2. ALL OTHER ASSESSMENT IS CHARTED. PAIN WELL CONTROLLED WITH AVAILABLE PRN FENTANYL. VSS. WILL CONTINUE TO MONITOR.
--- NOTE | 2019-03-20 07:37 | NUR ---
ASSUMED CARE: RECEIVED REPORT FROM NOC RN. PT APPEARS TO BE SLEEPING AT THIS TIME WITH AIRVO IN PLACE. NO ACUTE DISTRESS NOTED. WILL CONTINUE TO MONITOR AND ASSESS FURTHER.
--- NOTE | 2019-03-20 13:53 | NUR ---
ELIVATED BLOOD SUGAR: BLOOD SUGAR IS NOTED TO BE ABOVE 400. DR JOHNSON NOTIFIED AND NEW ORDERS RECEIVED TO GIVE ADITIONAL 5 UNITS HUMOLOG.
--- NOTE | 2019-03-20 16:34 | NUR ---
Spiritual Care inital note: Kimberley was on Airvo. She was alos quite sleepy. These made meaningful conversation difficult. She nodded 'yes' to prayer. She denied pain/concerns. she appears well cared-for by nursing. I will remain available.
[2019-03-21 04:38] LABS: BASOPHILS ABSOLUTE AUTO 0.01 K/mm3 (0.00-0.23); BASOPHILS PERCENT AUTO 0 % (0-2); EOSINOPHILS PERCENT AUTO 0 % (0-6); Hematocrit 28.1 % (33.0-51.0); Hemoglobin 9.1 g/dL (11.5-16.0); IMMATURE GRAN ABSOLUTE AUTO 0.16 K/mm3 (0.00-0.10); IMMATURE GRAN PERCENT AUTO 1 % (0-1); LYMPHOCYTES ABSOLUTE AUTO 0.65 K/mm3 (0.84-5.20); LYMPHOCYTES PERCENT AUTO 6 % (21-46); MONOCYTES ABSOLUTE AUTO 0.61 K/mm3 (0.16-1.47); MONOCYTES PERCENT AUTO 5 % (4-13); Mean Corpuscular HGB 28.9 pg (26.0-34.0); Mean Corpuscular HGB Conc 32.4 g/dL (31.5-36.5); Mean Corpuscular Volume 89 fL (80-100); Mean Platelet Volume 11.1 fL (9.1-12.4); NEUTROPHILS PERCENT AUTO 88 % (41-73); Platelet Count 344 K/mm3 (150-400); RDW Coefficient Variation 14.6 % (11.7-14.2); Red Blood Cell Count 3.15 M/mm3 (3.80-5.20); White Blood Cell Count 11.43 K/mm3 (4.00-11.30)
[2019-03-21 04:53] LABS: Calcium, Blood 8.6 mg/dL (8.5-10.1); Creatinine, Blood 1.57 mg/dL (0.40-1.00); Potassium, Blood 4.6 mmol/L (3.5-5.5)
--- NOTE | 2019-03-21 06:45 | NUR ---
SHIFT SUMMARY PATIENT SLEPT WELL THROUGH NIGHT. PATIENT TOLERATED AIRVO FROM ABOUT 22:30 LAST NIGHT TIL ~ 04:00 THIS AM, MAINTINED SPO2 ~93% ON 60L 62% FIO2. DID SWITCH BACK TO BIPAP AFTER COMPLAINT OF AIRVO "BURNING NOSE," HUMIDIFYER BAG WAS EMPTY. REPLACED BAG, TRIED BACK ON AIRVO, PATIENT STILL C/O BURNING WITH AIRVO. ASSESSMENT IS CHARTED. VSS. IT HAS BEEN A PLEASURE TAKING CARE OF THIS PATIENT.
--- NOTE | 2019-03-21 07:10 | NUR ---
Recieved report from Candelario. Patient on left side with HOB at 30 degrees. She awakened when doing CBG and was able to communicate her needs and asked for luis nerique mist and tolerated well. She is wearing BIPAP basal apparatus and sats 96% with settings 12/6. She has PowerGlide ANALI dressing intact and arm swollen above and below site, infusing NS TKO and placed on standby until evaluated. CBG 90. She has 16FR Swann draining to gravity yellow urine. VSS currently. She denies any current needs.
--- NOTE | 2019-03-21 09:40 | NUR ---
Patient sat up to eat breakfast and her AirVo was placed on so she could eat. Her sats were drtopping into the 60's and RT increased to 90% and has been reduced over the last 30 minutes back to 60%. She just now requeted to go back on BIPAP and DR Sotelo and RT in room. Dr. Sotelo visited with about an hour ago prior to him leaving. Dr Sotelo is going to work on getting her transfered to [facility] today for possible lung biopsy and eval. She tolerated all her am meds well.
--- NOTE | 2019-03-21 11:30 | NUR ---
Patient has been resting on BIPAP 03/24 60% Fio2. . Placing her back on AirVO at 70% 60L and sats low 90%'s. VSS. in room. Dr Sotelo has got acceptance from [facility]. She was medicated again with Fentanyl for continued back pain.
--- NOTE | 2019-03-21 13:21 | NUR ---
PATIENT RECEIVED 0.5 MG PO ATIVAN FOR AXIETY, PATIENT STATED "I AM SCARED ABOUT THE RANSFER", PAIENT WAS INSTRUCTED WHAT WILL HAPPEN AND THAT SHE WILL NOT BE INTUBATED, CALL LIGHT IN REACH, WILL CONTINUE TO MONITOR.
--- NOTE | 2019-03-21 15:35 | NUR ---
Patient trialing NRM at 10L and NC at 5L and has been tolerating well at 93%. She is being transferred to [facility] 7A bed 6 and [facility] picked up and placed on CPAP and she tolerated well. Call Juanis at [facility] to give report. Called and notified of exit time.
--- NOTE | 2019-03-21 16:01 | NUR ---
Patient has been resting on BIPAP 03/24 60% Fio2. . Placing her back on AirVO at 70% 60L and sats low 90%'s. VSS. in room. Dr Sotelo has got acceptance from [facility]. She was medicated again with Fentanyl for continued back pain.
[2019-03-21 21:04] LABS: Test Name 3000480
[2019-03-31 17:51] LABS: Result SEE LABOUT RESULTS
== END 2019-03-21 15:34 | disposition short-term general hospital (02) | DRG 189 ==
LOC: ER 10:31 → ICUW 13:57 → ICUE 13:57 → ICUW 14:42 → ER 14:42 → ICUE 14:42 → ICUW 14:49 → ICUE 16:59 → ICUW 03-21 14:16 → ICUE 03-21 14:17
PROVIDERS: Emergency Medicine; Internal Medicine Critical Care Medicine; Nurse Practitioner Acute Care; ADMIT Family Medicine
PROC: 5A09357 Assistance with Respiratory Ventilation, Less than 24 Consecutive Hours, Continuous Positive Airway Pressure (ICD-10-PCS; principal; 2019-03-17)
DX: J96.01 Acute respiratory failure with hypoxia (principal); J84.9 Interstitial pulmonary disease, unspecified; Z89.511 Acquired absence of right leg below knee; Z99.81 Dependence on supplemental oxygen; Z79.4 Long term (current) use of insulin; N18.3 Chronic kidney disease, stage 3 (moderate); G25.81 Restless legs syndrome; E66.9 Obesity, unspecified; I12.9 Hypertensive chronic kidney disease with stage 1 through stage 4 chronic kidney disease, or unspecified chronic kidney disease; E11.22 Type 2 diabetes mellitus with diabetic chronic kidney disease; F17.210 Nicotine dependence, cigarettes, uncomplicated; E11.65 Type 2 diabetes mellitus with hyperglycemia; F32.9 Major depressive disorder, single episode, unspecified; K21.9 Gastro-esophageal reflux disease without esophagitis; T38.0X5A Adverse effect of glucocorticoids and synthetic analogues, initial encounter; Y92.239 Unspecified place in hospital as the place of occurrence of the external cause; D63.1 Anemia in chronic kidney disease; E03.9 Hypothyroidism, unspecified; E78.5 Hyperlipidemia, unspecified; K22.4 Dyskinesia of esophagus; Z68.26 Body mass index [BMI] 26.0-26.9, adult
CPT/HCPCS: 0099U; 36415; 36600; 51703; 71045; 71046; 71250; 80048; 80053; 80069; 80202; 81001; 82085; 82550; 82607; 82728; 82746; 82803; 82947; 83516; 83540; 83550; 83605; 83735; 83880; 84145; 84484; 85025; 86038; 86039; 86200; 86225; 86235; 86430; 86644; 86645; 86694; 87040; 93005; 93010; 93971; 94640; 94660; 96365; 96367; 96372; 96375; 96376; 99285-25; A9270; A9270-GY; C1751; G0378; J0456; J1644; J1940; J2543; J2920; J2930; J3010; J3370; J7050; J7512; J7517; J7799